=== PATIENT | female | born 1950 | race Caucasian/White ===

== ENCOUNTER 2023-10-09 12:45 | Outpatient (CLI) | payer MEDICARE, SELFPAY ==
--- NOTE | ~2023-10-09 | MM_ITS ---
EXAMINATION: MM screening melba BI w sylvia HISTORY: Screening mammogram, family history of breast cancer in her mother. TECHNIQUE: Craniocaudal and mediolateral oblique 3-D tomosynthesis images were obtained and synthetic 2-D images were generated. CAD analysis was submitted and interpreted. COMPARISON: No prior mammogram is available for comparison at this institution. BREAST PARENCHYMAL COMPOSITION: There are scattered areas of fibroglandular density. FINDINGS: No suspicious mass, calcification, or architectural distortion are identified in either willian ast to suggest malignancy. There has been no suspicious interval change. IMPRESSION: 1. No mammographic evidence of malignancy. 2. Recommend routine screening mammography in one year. BI-RADS Category 1: Negative Reviewed, dictated and finalized at location A. [employer] ARCHITECT
--- NOTE | ~2023-10-09 | DEXA_ITS ---
Bone Density Report Name: ELSY KRAMER Age: 73 Sex: Female Ethnicity: White Date of : 1950 Indication: postmenopausal; screening for osteoporosis; height loss; anorexia or bulimia; Referring Provider: Salena Silveira Study: Bone densitometry was performed. Exam Date: October 09, 2023 Accession number: [id number] Bone Density: Region BMD T-score Z-score Classification AP Spine(L1-L4) 1.020 -0.2 1.9 Normal Femoral Neck (Left) 0.654 -1.8 0.1 Osteopenia Total Hip (Left) 0.936 0.0 1.5 Normal Femoral Neck (Right) 0.701 -1.3 0.5 Osteopenia Total Hip (Right) 0.991 0.4 2.0 Normal Femoral Neck Mean 0.678 -1.5 0.3 Osteopenia Total Hip Mean 0.963 0.2 1.8 Normal World Health Organization criteria for BMD impression classify patients as: Normal (T-score at or above -1.0), Osteopenia (T-score between -1.0 and -2.5), or Osteoporosis (T-score at or below -2.5). 10-year Fracture Risk(1): Major Osteoporotic Fracture 11% Hip Fracture 1.9% Reported Risk Factors: [place] (), Neck BMD=0.654, BMI=27.5 (1) FRAX(R) Version 3.08. Fracture probability calculated for an untreated patient. Fracture probability may be lower if the patient has received treatment. Clinical Information Provided by Patient: Has used the following medications: Vitamin D, Calcium Has the following medical conditions: Anorexia or Bulimia Patient maximum height was 65 Menopause Age: 51 No regular weight bearing exercise Drinks caffeinated beverages Onset of menses at age 14 Number of children 0 Impression: The patient has low bone mass, based on the Left Femoral Neck T-score. Discussion: BONE DENSITY IS LOW AT ONE OR MORE SKELETAL SITES. This patient's lowest T-score is low at one or more skeletal sites. It meets the World Health Organization's (WHO) criteria for ?low bone mass? (T-score between -1.0 and -2.5). The patient's 10-year risk of fracture as calculated by FRAX is less than the threshold where pharmacological therapy is recommended by the National Osteoporosis Foundation (NOF). However, all treatment decisions require clinical judgment and consideration of individual patient factors, including patient preferences, comorbidities, previous drug use, risk factors not captured in the FRAX model (e.g., frailty, falls, vitamin D deficiency, increased bone turnover, interval significant decline in bone density) and possible under or overestimation of fracture risk by FRAX. The patient should follow a healthful lifestyle (good nutrition with adequate calcium and vitamin D, and appropriate weight-bearing exercise). Follow-Up: Consider repeating this study in 2 to 3 years to reassess this patient's status, or sooner if there is some new clinical indication. Reported by:
== END 2023-10-09 12:46 | disposition home or self-care (01) ==
LOC: CHSIMG 12:48
PROVIDERS: PCP Family Medicine; Visit Provider Family Medicine
DX: Z12.31 Encounter for screening mammogram for malignant neoplasm of breast (principal); Z78.0 Asymptomatic menopausal state; M85.89 Other specified disorders of bone density and structure, multiple sites
CPT/HCPCS: 77063; 77067; 77080

== ENCOUNTER → 2023-10-17 10:30 | Outpatient (CLI) | payer MEDICARE, SELFPAY ==
--- NOTE | ~2023-10-17 | US_ITS ---
Limited Abdominal Sonogram: Real-time sonographic imaging of the right upper quadrant was performed. Clinical History: Elevated liver enzymes Findings: The liver appears echogenic, with no evidence of mass lesion or bile duct dilatation. Main portal vein demonstrates normal direction of flow. The gallbladder is well distended, and contains l ayering sludge. There is minimal gallbladder wall thickening of 4 mm. The common bile duct measures 4 mm. The visualized pancreas, aorta, and IVC are unremarkable. Small amount of abdominal ascites pre sent. Right kidney measures 9.8 cm in length, without hydronephrosis. Impression: Gallbladder sludge with mild gallbladder wall thickening. Correlate currently for acute cholecystitis . Consider HIDA scan as indicated. Diffuse fatty infiltration of the liver. Reviewed, dictated and finalized at location . [employer] Impression: Gallbladder sludge with mild gallbladder wall thickening. Correlate currently f or acute cholecystitis. Consider HIDA scan as indicated. Diffuse fatty infiltration of the liver.
== END ==
PROVIDERS: PCP Family Medicine; Visit Provider Family Medicine
DX: R74.8 Abnormal levels of other serum enzymes (principal); K76.0 Fatty (change of) liver, not elsewhere classified
CPT/HCPCS: 76705

== ENCOUNTER 2023-10-20 02:05 | Day surgery (SDC) | payer MEDICARE, SELFPAY ==
[2023-10-06 10:35] VITALS: BMI 26.7
--- NOTE | 2023-10-17 09:48 | SUR.PREOP ---
Patient called regarding upcoming procedure. Message left on pt's voicemail regarding appointment times.
[2023-10-20 12:46] VITALS: BP 137/74; PULSE 101; RESP 18; TEMP 36.4; O2SAT 99; BMI 26.9
[2023-10-20] MEDS: LACTATED RINGERS 1,000 ML 150 ML IV CONT (13:12)
--- NOTE | 2023-10-20 13:21 | P.PNAN_ITS ---
Anes - Initial Pre Proc Eval Procedure: Operation Date: 10/20/23 14:00 Proposed Procedures p Esophagogastroduodenoscopy & Screening Colonoscopy - Jordi Leon MD Date/Time: 10/20/23 13:21 Surgeon: Jordi Willis MD Pre Op Diagnosis: anorexia,abnormal weight loss,neoplasm screening Patient Data Age: 73 Gender: F Height: 1.65 m Weight: 73.4 kg Last Vital Signs Temp 36.4 C L 10/20/23 12:46 Pulse 101 H 10/20/23 12:46 Resp 18 10/20/23 12:46 BP 137/74 10/20/23 12:46 Pulse Ox 99 10/20/23 12:46 O2 Del Method Room Air 10/20/23 12:46 Allergies Allergy/AdvReac Type Severity Reaction Status Date / Time No Known Allergies Allergy Verified 10/20/23 12:54 Home Medications Medication Instructions Recorded Confirmed Type potassium chloride 10 mEq 10 meq PO DAILY #30 tabs 09/28/23 10/20/23 Rx tablet,extended release Patient hx anesthesia problems: post op nausea/vomiting Family hx anesthesia problems: none Results Review: All pre-operative results and documents have been reviewed as part of the pre- operative evaluation. [facility] Past Medical History Medical History Alcohol abuse FHx: breast cancer in first degree relative Poor appetite Weight loss Surgical History Surgical History Hx of cataract surgery Family History Family History Father Malignant neoplasm of prostate Mother Family history of malignant neoplasm of breast in first degree relative Social History Social History Social History: Single Smoking status: Never smoker Second hand tobacco smoke exposure: No Alcohol intake: former Drinks per week: 4 Substance use: never Substance use type: does not use Lack of Transportation: No Lack of Food: Never True Current Housing: I Have Housing Concerned About Future Housing: No Difficulty Paying Gas/Electric Bills: No Difficulty Paying for Meds: No Currently Unemployed: YES Education: Don't Know Difficulty w/ Childcare or Family Care: No Living arrangements: alone Occupation/Education: retired Gender identity (if verbalized by the patient): Female Sexual Orientation (if Verbalized by the Patient): Straight or Heterosexual Anes - Eval Final PreProcedure Day of Procedure 10/20/23 13:21 Patient weight: normal Heart: regular rate and rhythm Lungs: clear to auscultation Airway: Mallampati scale class II Neurological: alert and oriented Last oral intake: >/= 8 hours ASA classification: III Emergent: no Anesthetic plan: proceed Anesthesia type and monitoring: general GIVS and standard monitoring Results Review: All pre-operative results and documents have been reviewed as part of the pre- operative evaluation. Informed Consent: The patient's anesthetic plan and its attendant risks and benefits were discussed with the patient/family/POA. Questions were solicited and answers provided to the satisfaction of the patient/family/POA.
--- NOTE | 2023-10-20 13:38 | PM.HPGS ---
History of Present Illness History of Present Illness Consent: Risks, benefits, and alternatives have been discussed and questions answered. Patient agrees to proceed with procedure. Chief complaint: anorexia,abnormal weight loss,neoplasm screening Narrative: Ligia Preciado is a 73 year old female here for egd and colonoscopy, recently decreased appetite and belching (she was drinking alcohol but stopped). Review of Systems Constitutional: Constitutional: Denies headache(s) and Denies weakness Eyes: Eyes: Denies blurry vision ENT: Reports Normal hearing present, Denies headache(s) and Denies neck pain Cardiovascular: Cardiovascular: Denies chest pain and Denies dyspnea Respiratory: Respiratory: Denies dyspnea Gastrointestinal: Gastrointestinal: Reports no additional gastrointestinal complaints Genitourinary: Genitourinary: Denies dysuria Musculoskeletal: Musculoskeletal: Denies neck pain Integumentary/Breasts: Skin/Breast: Denies dry skin Neurologic: Reports Normal hearing present, Denies headache(s) and Denies weakness Psychiatric: Psychiatric: Denies anxiety Endocrine: Endocrine: Denies change in body appearance Hematologic/Lymphatic: Hematologic/Lymphatic: Denies easy bleeding Allergic/Immunologic: Allergic/Immunologic: Denies urticaria PMFSH Past Medical History Medical History Alcohol abuse FHx: breast cancer in first degree relative Poor appetite Weight loss Surgical History Surgical History Hx of cataract surgery Family History Family History Father Malignant neoplasm of prostate Mother Family history of malignant neoplasm of breast in first degree relative Social History Social History Social History: Single Smoking status: Never smoker Second hand tobacco smoke exposure: No Alcohol intake: former Drinks per week: 4 Substance use: never Substance use type: does not use Lack of Transportation: No Lack of Food: Never True Current Housing: I Have Housing Concerned About Future Housing: No Difficulty Paying Gas/Electric Bills: No Difficulty Paying for Meds: No Currently Unemployed: YES Education: Don't Know Difficulty w/ Childcare or Family Care: No Living arrangements: alone Occupation/Education: retired Gender identity (if verbalized by the patient): Female Sexual Orientation (if Verbalized by the Patient): Straight or Heterosexual Meds Home Medications and Allergies Home Medications Medication Instructions Recorded Confirmed Type potassium chloride 10 mEq 10 meq PO DAILY #30 tabs 09/28/23 10/20/23 Rx tablet,extended release Allergies Allergy/AdvReac Type Severity Reaction Status Date / Time No Known Allergies Allergy Verified 10/20/23 12:54 Vital Signs Vital Signs - 24 hr 10/20/23 12:46 Temperature 97.5 F L Pulse Rate 101 H Respiratory Rate 18 Blood Pressure 137/74 Pulse Oximetry 99 Oxygen Delivery Room Air Exam Const: General: comfortable and no acute distress HENMT: Face/Nose/Sinus: Normal nares present Eyes: General: appearance normal, both eyes and all related structures Neck: Neck: no JVD Resp: Auscultation: clear to auscultation bilaterally Cardio: Rate: regular rate Rhythm: regular rhythm GI: Inspection: non-distended GI Palp: Yes Soft to palpation Skin: General skin exam: normal color Neuro: General: gait normal Speech: normal speech Extrem: General: normal to inspection Psych: Mental Status: mental status grossly normal Assessment and Plan Assessment and plan (1) Colon cancer screening: Code(s): Z12.11 - Encounter for screening for malignant neoplasm of colon Status: Acute Assessment and Plan: colonoscopy (2) Weight l
--- NOTE | 2023-10-20 14:04 | SUR.OPER ---
EGD ended at 1353. Colonoscopy began at 1358.
[2023-10-20 14:15] VITALS: BP 106/68; PULSE 100; RESP 23; O2SAT 99
[2023-10-20 14:25] VITALS: BP 120/74; PULSE 80; RESP 17; O2SAT 99
[2023-10-20 14:35] VITALS: BP 136/70; PULSE 72; RESP 26; O2SAT 98
== END 2023-10-20 14:54 | disposition home or self-care (01) ==
PROVIDERS: PCP Family Medicine; Visit Provider Internal Medicine Gastroenterology
PROC: 0DJ08ZZ Inspection of Upper Intestinal Tract, Via Natural or Artificial Opening Endoscopic (ICD-10-PCS; CPT 43235; principal; 2023-10-20 14:00)
DX: Z12.11 Encounter for screening for malignant neoplasm of colon (principal); D12.0 Benign neoplasm of cecum; D12.2 Benign neoplasm of ascending colon; D12.5 Benign neoplasm of sigmoid colon; K63.5 Polyp of colon; K57.30 Diverticulosis of large intestine without perforation or abscess without bleeding; K64.8 Other hemorrhoids; K29.80 Duodenitis without bleeding; K29.70 Gastritis, unspecified, without bleeding; K44.9 Diaphragmatic hernia without obstruction or gangrene
CPT/HCPCS: 45380; 45385; 43239; 88305; J2704; J7120

== ENCOUNTER 2025-03-14 11:05 | Outpatient (CLI) | payer MEDICARE, SELFPAY ==
--- OUTSIDE RECORDS SUMMARY | 2025-03-14 11:26 | XMS_ITS | Clinical Summary ---
Author Organization [facility] Address [address] [place] [address] Care Team Providers Care Numerologist Name Role Phone Unavailable Primary Care Provider Unavailabl e Source Comments [facility],non-owned Affiliates and Associated Physician Practices is amultiple site organization consisting of ambulatory clinics and hospital sitesin [place], [place]. This disclosure is being madepursuant to the Care Everywhere program and may not contain all information available regarding this patient. Last updated 18.[employer] [facility] Allergies No known active allergies Medications * Be aware that medications may not be up to date on this document. Alwaysverify current medications with the patient. folic acid (Folvite) 1 MG tablet Take 1 (one) tablet by mouth once daily 02/12/2025 Active lactulose (Chronulac) 10 GM/15ML solution Take 30 mL by mouth 2 times daily 02/11/2025 Active calcium-vitamin D (Os-Sriram 500 + D) 500-200 mg-unit tablet Take 1 (one) tablet by mouth 2 times daily with morning and evening meal 02/11/2025 Active midodrine (Proamatine) 5 MG tablet Take 3 (three) tablets by mouth 3 times daily before meals 02/11/2025 Active thiamine (Vitamin B-1) 100 MG tablet Take 1 (one) tablet by mouth once daily 02/12/2025 Active Active Problems Problem Noted Date Diagnosed Date Encounter for pre-transplant evaluation for liver transplant 02/08/2025 Overview (02/25/2025): Images from the original note were not included. Elsy Kramer 1950 A[facility]/ [facility] Last drink: September 2024 RP: 0/8 [facility] Team Referral- Dr. Marks Body mass index is 24.03 kg/m . MELD 3.0: 28 at 02/11/2025 6:44 AM MELD-Na: 28 at 02/11/2025 6:44 AM Calculated from: Serum Creatinine: 5.71 mg/dL (Using max of 3 mg/dL) at 02/11/2025 6:44 AM Serum Sodium: 134 mmol/L at 02/11/2025 6:44 AM Total Bilirubin: 2.1 mg/dL at 02/11/2025 6:44 AM Serum Albumin: 2.9 g/dL at 02/11/2025 6:44 AM INR(ratio): 1.5 at 02/11/2025 6:44 AM Age at listing (hypothetical): 74 years Sex: Female at 02/11/2025 6:44 AM LABS 02/08/25 16:31 02/09/25 10:50 ABO Rh O POS O POS 01/31/25 10:04 Ferritin 576 (H) Iron 69 TIBC Calculated 64 (L) Transferrin 51 (L) Transferrin Saturation % 100 (H) 02/09/25 05:41 Total Cholesterol (NMR) 75 Triglycerides 50 HDL 10 (L) LDL Calculated 55 02/09/25 05:41 Alpha-Fetoprotein Tumor Marker 3.7 02/09/25 05:41 Uric Acid 9.6 (H) 02/09/25 05:41 Vitamin D, 25 Hydroxy 6.7 (L) 01/31/25 10:03 LEANDRO HEp-2 IgG <1:80 LEANDRO IgG Detected ! LEANDRO Interpretive Comment See Note F-Actin Antibody IgG 4 Mitochondrial M2 Antibody 1.0 Liver/Kidney Microsomal Antibody IgG <1:20 Liver-Kidney Microsomal Antibody 1.1 01/31/25 10:04 Xhcnd-4-Kufqwmcaduy 112 Ceruloplasmin 15 (L) 02/08/25 16:31 02/09/25 05:48 Treponema pallidum Antibody Non-reactive HIV Antigen/Antibody 1 & 2 Non-reactive 01/31/25 10:04 Hepatitis B Core Virus Antibody IgM Non-reactive Hepatitis B Surface Antibody Quantitative 178.4 (H) Hepatitis B Virus Surface Antibody Reactive ! Hepatitis B Virus Surface Antigen Non-reactive Hepatitis C Antibody Non-reactive Latest Reference Range & Units 02/09/25 06:50 QuantiFERON-TB Gold Plus Negative Negative QuantiFERON Plus TB1 Minus NIL <=0.34 IU/mL 0.04 QuantiFERON Plus TB2 Minus NIL <=0.34 IU/mL 0.03 QuantiFERON Mitogen Minus NIL IU/mL 2.97 QuantiFERON Nil Value IU/mL 0.04 02/09/25 05:50 02/09/25 07:22 02/09/25 10:50 02/09/25 10:51 02/09/25 10:53 CMV Quant by PCR, Log NA CMV Quant by PCR, Interp Not detected Measles (Rubeola) Antibody IgG >300.0 Mumps Virus Antibody IgG 138.0 Rubella Antibody IgG 73.0 Varicella zoster Virus Antibody IgG 0.8 EBV 02/09/25 05:50 02/09/25 10:51 Strongyloides Antibody IgG 0.1 Toxoplasma Antibody IgG <3.0 02/08/25 16:13 Amphetamines Screen Urine Negative Barbiturates Screen Urine Negative Benzodiazepine Screen Urine Negative Cannabinoids Screen Urine Negative Cocaine Metabolite Urine Negative Methadone Screen Urine Negative Opiates Urine Negative Fentanyl Screen Urine Negative Phencyclidine Screen Urine Negative 02/02/25 06:17 PEth 16:0/18.1 (POPEth) <10 PEth 16:0/18.2 (PLPEth) <10 CXR 01/30/25 Single frontal view of the chest demonstrates a normal sized heart and pulmonary vasculature. No focal consolidation, pleural effusion or pneumothorax. No acute osseous abnormalities. IMPRESSION: No acute cardiopulmonary abnormalities. US venous LE doppler 01/03/25 done OSH CONCLUSION: Acute non-occlusive deep vein thrombosis involving the left common femoral vein. No evidence of deep vein thrombosis involving the right lower extremity. US VAS LE doppler 02/09/25 No evidence of DVT in the visualized veins of the bilateral lower extremities by this exam. There was no echogenic thrombus noted in the lumen of the vessels. The veins were compressible where this could be performed and flow was phasic with respiration. Venous duplex imaging was performed in bilateral lower extremities with B mode,color flow and spectral Doppler. The following venous structures were evaluated: common femoral vein, proximal portion of the great saphenous vein, femoral vein, proximal profunda femoris vein, popliteal vein, posterior tibial veins and peroneal veins. Pelvic MRI 02/10/25 1.Hepatic cirrhosis with sequela of portal hypertension including moderate to large volume ascites. No arterial hyperenhancing hepatic observations. 2.Cholelithiasis and gallbladder sludge. 3.Moderate sized hiatal hernia. Small left pleural effusion. 4.Unremarkable pelvic viscera. An approximately 2.5 cm focal bone lesion in the right iliac bone not well characterized, likely a nonaggressive lesion like hemangioma. Bone scan may be helpful. Pelvic CT 02/10/25 1.Hepatic cirrhosis with sequela of portal hypertension including moderate to large volume ascites. No arterial hyperenhancing hepatic observations. 2.Cholelithiasis and gallbladder sludge. 3.Moderate sized hiatal hernia. Small left pleural effusion. 4.Unremarkable pelvic viscera. An approximately 2.5 cm focal bone lesion in the right iliac bone not well characterized, likely a nonaggressive lesion like hemangioma. Bone scan may be helpful. MRI 02/10/25 Focal liver observations No arterially enhancing observations concerning for hepatocellular carcinoma. Hepatic vasculature Portal and hepatic veins: Patent. 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 1.Hepatic cirrhosis with sequela of portal hypertension including moderate to large volume ascites. No arterial hyperenhancing hepatic observations. 2.Cholelithiasis and gallbladder sludge. 3.Moderate sized hiatal hernia. Small left pleural effusion. 4.Unremarkable pelvic viscera. An approximately 2.5 cm focal bone lesion in the right iliac bone not well characterized, likely a nonaggressive lesion like hemangioma. Bone scan may be helpful. EKG 02/09/25 Echo w/BS 01/03/25 - done OSH SUMMARY: ++++++++++++++++++++++++++++++++++++ The left ventricular size is normal. The left ventricular systolic function is hyperdynamic with cavity obliteration. Estimated left ventricular ejection fraction is >75%. Left ventricular diastolic function is normal. Wall motion appears normal in all segments. The right ventricular size is normal. Right ventricular systolic function is normal. No significant valvular abnormalities. ++++++++++++++++++++++++++++++++++++ FINDINGS: ++++++++++++++++++++++++++++++++++++ LV: The left ventricular size is normal. The left ventricular systolic function is hyperdynamic with cavity obliteration. Estimated left ventricular ejection fraction is >75%. There is no left ventricular hypertrophy. Left ventricular diastolic function is normal. WM: Wall motion appears normal in all segments. RV: The right ventricular size is normal. Right ventricular systolic function is normal. IVS: No evidence of ventricular septal defect. LA: The left atrial size is normal. RA: Right atrial size is normal. IAS: Atrial septum appears intact. DAVON: No evidence of pericardial effusion. AO: Normal aortic root. PA: Unable to reliably quantitate pulmonary systolic pressure. SVn: Inferior vena cava not well visualized. AV: No evidence of aortic valve stenosis. No evidence of aortic regurgitation. MV: Trace mitral regurgitation. No evidence of mitral valve stenosis. PV: No evidence of pulmonic valve stenosis. A trace of pulmonic regurgitation. TV: Mild tricuspid regurgitation. No evidence of tricuspid valve stenosis. DSE 02/10/25 The stress echocardiogram is negative for dobutamine induced wall motion abnormalities. Stress ECG is negative for ischemia. Stress Echo Findings Left Ventricle Normal left ventricular systolic function with no regional wall motion abnormalities noted at rest. No regional wall motion abnormalities noted post stress. Normal augmentation of all wall segments without evidence of ischemia with stress. Rest Echo Findings Left Ventricle The left ventricle is normal in size, with hyperdynamic systolic function. Target HR Summary: Test terminated after reaching target heart rate (85% max predicted) BP Response: Patient exhibited a hypotensive response with stress Termination Reason: Reached target heart rate or workload Cardiac Symptoms: None Resting ECG Normal sinus rhythm at rest. PACs. Stress ECG Heart rate demonstrated a normal response to stress. A peak heart rate of 127 bpm was achieved. The patient's peak stress blood pressure was 81/42 mmHg. Arrhythmias No arrhythmias were observed during the examination. Mammogram 10/09/23-due for updated mammogram PAP/VOICE COACH EGD Colonoscopy 10/20/2023 due 2025 Path: Panorex 02/09/25 There are multiple dental restorations. The maxillary third molars were removed. No large dental caries or mandibular periapical lucency. Dexa scan PT Frailty Assessment Transplant Education 02/11/25 Jayda Jesus, cone examinerHuman Intelligence [facility] 02/09/25 BMI is 24, normal weight per BMI. Pt is considered to be a fair candidate for a Liver Transplant from a Nutrition standpoint. - pt has skin breakdown, pt has severe malnutrition but she is willing to take Ensure Clear. Hold off on Brandon given elevated creat. Transplant Nephrology Consultation Transplant Surgical Consultation MANISH (acute kidney injury) 02/01/2025 Assessment & Plan (02/03/2025 1:04 PM CDT): - Oliguric (125ml out ON) - Nepho following- > appreciate recs - Unclear baseline (Per OSH records- creatinine was elevated 3.14 on 01/26) - Continues to be elevated-> 5.44 on 02/03 - Renal US with mildly increased parenchymal echogenicity without hydronephrosis - LEANDRO + - Concerns for HRS vs worsening MANISH Assessment & Plan (02/02/2025 12:57 PM CDT): - Nepho following- > appreciate recs - Unclear baseline (Per OSH records- creatinine was elevated 3.14 on 01/26) - Continues to be elevated-> 4.59 today (02/01) - Concerns for HRS Assessment & Plan (02/01/2025 2:12 PM CDT): - Unclear baseline (Per OSH records- creatinine was elevated 3.14 on 01/26) - Continues to be elevated at 3.11 - Concerns for HRS- workup pending (Urine with micro, Urine lytes, creatinine and urea) High anion gap metabolic acidosis 02/01/2025 Assessment & Plan (02/03/2025 1:04 PM CDT): - GAP 18 on 02/03 - Likely 2/2 to chronic liver disease - CTM - Will transition from bicarb tabs to IV infusion and reassess. Assessment & Plan (02/02/2025 12:57 PM CDT): - GAP closed now 14 on 02/01 - Likely 2/2 to chronic liver disease - CTM - Will start Sodium Bicarbonate 650 mg TID Assessment & Plan (02/01/2025 2:12 PM CDT): - Likely 2/2 to chronic liver disease - Bicarb 11, GAP 17 - CTM - Will start Sodium Bicarbonate 650 mg TID PAF (paroxysmal atrial fibrillation) 01/30/2025 Assessment & Plan (02/03/2025 1:04 PM CDT): - In NSR on tele Assessment & Plan (02/02/2025 12:57 PM CDT): - In NSR on tele Assessment & Plan (02/01/2025 3:01 PM CDT): - In NSR on tele - Home med- metop succ 12.5 mg qd Urinary tract infection asso ciated with indwelling urethral catheter 01/30/2025 Assessment & Plan (02/03/2025 1:04 PM CDT): - See bacteremia Assessment & Plan (02/02/2025 12:57 PM CDT): - See bacteremia Assessment & Plan (02/01/2025 2:12 PM CDT): - See bacteremia Bacteremia 01/30/2025 Assessment & Plan (02/03/2025 1:04 PM CDT): - POA, improving - WBC downtrending - 2/2 CAUTI w pyelonephritis - Bcx obtained at OSH on 01/27- + for GNR. Was not able to speciated or provide sensitivity. - LVP on 01/27 finalized with NGTD. - Repeated LVP 02/01- sent for cytology and cx- NGTD - UA repeated yesterday given HRS workup- showing WBC clumps and yeast budding. - Likely source CAUTI from chronic dao 2/2 urinary retention. Replaced on admission w urology (01/30) PLAN: - ID consulted for possible funguria- signed off - Will hold off on empirical tx given she has chronic dao catheter and is improving clinically. - Continue Zosyn given we did not obtain species or sensitivity (EOT 02/03/25) Assessment & Plan (02/02/2025 12:57 PM CDT): - POA, improving - WBC down to 9.2 today (02/01) from 14.9. - 2/2 CAUTI w pyelonephritis - Bcx obtained at OSH on 01/27- + for GNR. Was not able to speciated or provide sensitivity. - LVP on 01/27 finalized with NGTD. - Repeated LVP 02/01- sent for cytology and cx. - UA repeated yesterday given HRS workup- showing WBC clumps and yeast budding. - Likely source CAUTI from chronic dao 2/2 urinary retention. Replaced on admission w urology (01/30) PLAN: - ID consulted for possible funguria. - Will hold off on empirical tx given she has chronic dao catheter and is improving clinically. - Continue Zosyn given we did not obtain species or sensitivity (EOT 02/03/25) Assessment & Plan (02/01/2025 2:12 PM CDT): - POA, improving - 2/2 CAUTI w pyelonephritis - Bcx obtained at OSH on 01/27- + for GNR. Was not able to speciated or provide sensitivity. - LVP on 01/27 finalized with NGTD. - Likely source CAUTI from chronic dao 2/2 urinary retention. Replaced on admission w urology (01/30) PLAN: - Continue Zosyn given we did not obtain species or sensitivity (EOT 02/03/25) Chronic deep vein thrombosis (DVT) of proximal vein of left lower extremity 01/30/2025 Assessment & Plan (02/03/2025 1:04 PM CDT): - s/p IVC filter Assessment & Plan (02/02/2025 12:57 PM CDT): - s/p IVC filter Assessment & Plan (02/01/2025 2:12 PM CDT): - s/p IVC filter Pleural effusion 01/30/2025 Assessment & Plan (02/03/2025 1:04 PM CDT): - CXR 01/26 shows small R effusion - No acute processes on repeat xray 01/30 - On RA Assessment & Plan (02/02/2025 12:57 PM CDT): - CXR 01/26 shows small R effusion - No acute processes on repeat xray 01/30 - On RA Assessment & Plan (02/01/2025 3:01 PM CDT): - CXR 01/26 shows small R effusion - No acute processes on repeat xray 01/30 - On RA Cirrhosis of liver with asci kym, unspecified hepatic cirrhosis type 01/28/2025 Assessment & Plan (02/03/2025 1:04 PM CDT): - 2/2 alcohol use disorder - LVP was completed on 01/27 with 9 L removed. - Repeated LVP 02/01- sent for cytology and cx - Hepatology consulted - MELD 3.0 was 29 at 02/03/2025 5:29 AM MELD-Na was 30 at 02/03/2025 5:29 AM MELD was 29 at 02/03/2025 5:29 AM Plan: Continue Thiamin and Midodrine - Increase Midodrine to 15 TID. - Avoid hypotension- MAP > 65 - Protonix 40 mg qd - Holding lasix and spironolactone in the setting of MANISH - s/p LVP on 02/01 w 9 L removed Assessment & Plan (02/02/2025 12:57 PM CDT): - 2/2 alcohol use disorder - LVP was completed on 01/27 with 9 L removed. - Repeated LVP 02/01- sent for cytology and cx - Hepatology consulted - MELD 3.0 was 30 at 02/02/2025 6:17 AM MELD-Na was 30 at 02/02/2025 6:17 AM MELD was 29 at 02/02/2025 6:17 AM Plan: Continue Thiamin and Midodrine - Increase Midodrine to 15 TID. - Avoid hypotension- MAP > 65 - Protonix 40 mg qd - Holding lasix and spironolactone in the setting of MANISH - s/p LVP on 02/01 w 9 L removed Assessment & Plan (02/01/2025 3:01 PM CDT): - 2/2 alcohol use disorder - Last LVP was completed on 01/27 with 9 L removed. - Hepatology consulted - MELD 3.0 was 30 at 01/31/2025 10:03 AM MELD-Na was 28 at 01/31/2025 10:03 AM MELD was 27 at 01/31/2025 10:03 AM Plan: Continue Thiamin and Midodrine - Avoid hypotension- MAP > 65 - Protonix 40 mg qd - Holding lasix and spironolactone in the setting of MANISH - Repeat LVP today (good pocket in RLQ on POCUS) Urinary tract infection without hematuria, site unspecified 01/26/2025 Assessment & Plan (02/03/2025 1:04 PM CDT): - See bacteremia Assessment & Plan (02/02/2025 12:57 PM CDT): - See bacteremia Assessment & Plan (02/01/2025 2:12 PM CDT): - See bacteremia Resolved Problems Problem Noted Date Diagnosed Date Resolved Date Other secondary hypertension 01/30/2025 02/01/2025 Encounters Date Type Department Care Team Description 01/29/2025 10:31 PM CDT - 02/11/2025 6:21 PM CDT Hospital Encounter [facility] [address] [place] [id number] Rojas Lopez MD Gandhi, Avi, MD Qureshi, Kamran, MD Gastroenterology Discharge Disposition: Long Term Facility 01/26/2025 Telephone [facility] [address] [place] [id number] Joel Cordoba MD Hospitalization from Last 3 Months Social History Tobacco Use Types Packs/Day Years Used Date Smoking Tobacco: Never Assessed Comments Unknown Sex and Gender Information Value Date Recorded Sex Assigned at Not on file Legal Sex Female 7:06 AM [employer] Gender Identity Not on file Sexual Orientation Not on file Last Filed Vital Signs Vital Sign Reading Time Taken Comments Blood Pressure 95/51 02/11/2025 1:03 PM CDT Pulse 80 02/11/2025 8:04 AM CDT Temperature 36.7 C (98 F) 02/11/2025 8:04 AM CDT Respiratory Rate 18 02/11/2025 8:04 AM CDT Oxygen Saturation 98% 02/11/2025 8:04 AM CDT Inhaled Oxygen Concentration - - Weight 67.5 kg (148 lb 12.8 oz) 02/11/2025 4:00 AM CDT Height 165.1 cm (5' 5 ) 01/29/2025 10:3 4 PM CDT Body Mass Index 24.76 01/29/2025 10:34 PM CDT Plan of Treatment Health Maintenance Due Date Last Done Comments BONE DENSITY TESTING 1950 COLOGUARD (AGES 45-75) - COL ON CA SCREENING 1950 COLON MONITORING 1950 COLONOSCOPY - COLON CA SCREENING 1952 CT COLONOGRAPHY - COLON CA SCREENING 1950 Colorectal Cancer Screening 1950 FIT - COLON CA SCREENING 1950 FLEX SIG - COLON CA SCREENING 1950 MAMMOGRAM 1950 DTAP/TDAP/TD VACCINES (1 - Tdap) 1971 PNEUMOCOCCAL VACCINE 50+ (1 of 2 - PCV) 1971 ZOSTER VACCINE (1 of 2) 2002 HEPATITIS B VACCINE (1 of 3 - Risk 3-dose series) 2012 Respiratory Syncytial Virus (RSV) Vaccine Pt: or over 60 yrs (1 - Risk 60-74 years 1-dose series) 2012 COVID-19 VACCINE (1 - 2023-2 5 season) 2024 DEPRESSION SCREENING 11/03/2024 MEDICARE AWV CALENDAR YEAR 2024 INFLUENZA VACCINE (Season Ended) 2025 LIPID TESTING 02/09/2030 02/09/2025, 01/03/2025 HEPATITIS C SCREENING Completed 01/31/2025 , 01/04/2025, 01/04/2025 HIB VACCINE Aged Out No longer eligi ble based on patient's age to complete this topic HPV VACCINE Aged Out No longer eligi ble based on patient's age to complete this topic MENINGOCOCCAL (Group B) VACCINE SHARED DECISION-MAKING Aged Out No longer eligible based on patient's age to complete this topic MENINGOCOCCAL GROUPS A/C/Y/W VACCINE Aged Out No longer eligible b ased on patient's age to complete this topic Procedures Procedure Name Priority Date/Time Associated Diagnosis Comments PTT [facility] AM Draw 02/11/2025 6:44 AM CDT Cirrhosis of liver with ascites, unspecified hepatic cirrhosis type (HCC) PT-INR [facility] AM Draw 02/11/2025 6:44 AM CDT Cirrhosis of liver with ascites, unspecified hepatic cirrhosis type (HCC) COMPREHENSIVE METABOLIC PANEL AM Draw 02/11/2025 6:44 AM CDT High anion gap metabolic acidosis CBC W/O DIFFERENTIAL AM Draw 02/11/2025 6:44 AM CDT Bacteremia MRI PELVIS WWO CONTRAST Routine 02/11/20 25 1:27 PM CDT Encounter for pre-transplant evaluation for liver transplant MRI ABDOMEN WWO CONTRAST Routine 025 1:26 PM CDT Encounter for pre-transplant evaluation for liver transplant ECHO STRESS DOBUTAMINE W CONTRAST Routine 02/10/2025 11:13 AM CDT Encounter for pre-transplant evaluation for liver transplant BLOOD GASES PETEY + COOX PANEL Routine 02/10/2025 8:16 AM CDT PTT [facility] AM Draw 02/10/2025 5:28 AM CDT Cirrhosis of liver with ascites, unspecified hepatic cirrhosis type (HCC) PT-INR [facility] AM Draw 02/10/2025 5:28 AM CDT Cirrhosis of liver with ascites, unspecified hepatic cirrhosis type (HCC) COMPREHENSIVE METABOLIC PANEL AM Draw 02/10/2025 5:28 AM CDT High anion gap metabolic acidosis CBC W/O DIFFERENTIAL AM Draw 02/10/2025 5:28 AM CDT Bacteremia EKG 12-LEAD STAT 02/09/2025 6:16 PM CDT Cirrhosis of liver with ascites, unspecified hepatic cirrhosis type (HCC) MANISH (acute kidney injury) BLOOD TYPE VERIFICATION Routine 02/10/20 25 12:59 PM CDT PROTEIN C ACTIVITY AM Draw 02/09/2025 12 :59 PM CDT ANTITHROMBIN III ANTIGEN AM Draw 025 12:59 PM CDT XR PANOREX Routine 02/09/2025 12:14 PM CDT Encounter for pre-transplant evaluation for liver transplant VAS BILATERAL VENOUS DUPLEX LE Routine 02/09/2025 12:13 PM CDT Chronic deep vein thrombosis (DVT) of proximal vein of left lower extremity (HCC) CARDIOLIPIN ANTIBODY IGG AM Draw 025 10:54 AM CDT MUMPS ANTIBODY IGG AM Draw 02/09/2025 10 :53 AM CDT CBC W/O DIFFERENTIAL AM Draw 02/09/2025 10:53 AM CDT Bacteremia BETA-2 GLYCOPROTEIN 1 ANTIBODY IGG/IGM PANEL AM Draw 02/09/2025 10:51 AM CDT CARDIOLIPIN ANTIBODY IGM AM Draw 025 10:51 AM CDT RUBELLA ANTIBODY IGG TITER AM Draw 02/09 10:51 AM CDT TOXOPLASMA GONDII ANTIBODY IGG AM Draw 02/09/2025 10:51 AM CDT TYPE + SCREEN PANEL Routine 02/09/2025 1 0:50 AM CDT PROTEIN S ANTIGEN AM Draw 02/09/2025 10: 50 AM CDT HOMOCYSTEINE BLOOD QUANTITATIVE Routine 02/09/2025 10:50 AM CDT VARICELLA ZOSTER ANTIBODY IGG AM Draw 02/09/2025 10:50 AM CDT HEMOGLOBIN A1C Routine 02/09/2025 10:50 AM CDT PTT [facility] AM Draw 02/09/2025 10:50 AM CDT Cirrhosis of liver with ascites, unspecified hepatic cirrhosis type (HCC) COMPREHENSIVE METABOLIC PANEL AM Draw 02/09/2025 10:50 AM CDT High anion gap metabolic acidosis RUBEOLA ANTIBODY IGG AM Draw 02/09/2025 7:22 AM CDT QUANTIFERON-TB GOLD PLUS 4-TUBE AM Draw 02/09/2025 6:50 AM CDT STRONGYLOIDES ANTIBODY IGG AM Draw 02/09 5:50 AM CDT CYTOMEGALOVIRUS (CMV) QUANTITATIVE PLASMA AM Draw 02/09/2025 5:50 AM CDT NICOTINE + METABOLITES BLOOD AM Draw 02/09/2025 5:49 AM CDT SYPHILIS ANTIBODY CASCADING REFLEX AM Draw 02/09/2025 5:48 AM CDT FACTOR V LEIDEN MUTATION PANEL AM Draw 02/09/2025 5:41 AM CDT VITAMIN D 25-HYDROXY AM Draw 02/09/2025 5:41 AM CDT LUPUS ANTICOAGULANT PANEL AM Draw 2024 5:41 AM CDT URIC ACID BLOOD Routine 02/09/2025 5:41 AM CDT ALPHA FETOPROTEIN BLOOD TUMOR MARKER AM Draw 02/09/2025 5:41 AM CDT LIPID PROFILE AM Draw 02/09/2025 5:41 AM CDT PT-INR [facility] AM Draw 02/09/2025 5:41 AM CDT Cirrhosis of liver with ascites, unspecified hepatic cirrhosis type (HCC) HLA ANTIBODY SCREEN LUM CLASS 2 SAB Routine 02/08/2025 4:31 PM CDT HLA ANTIBODY SCREEN LUM CLASS 1 SAB Routine 02/08/2025 4:31 PM CDT BLOOD TYPE ABO+ RH PANEL Routine 025 4:31 PM CDT HIV-1 HIV-2 ANTIBODY + HIV P24 AG PANEL STAT 02/08/2025 4:31 PM CDT URINE DRUG SCREEN IMMUNOASSAY Routine 02/08/2025 4:13 PM CDT HLA TYPING DNA LOW RESOLUTION DR,DQ Routine 02/08/2025 7:56 AM CDT HLA TYPING DNA LOW RESOLUTION A,B,C Routine 02/08/2025 7:56 AM CDT PTT [facility] AM Draw 02/08/2025 5:28 AM CDT Cirrhosis of liver with ascites, unspecified hepatic cirrhosis type (HCC) PT-INR [facility] AM Draw 02/08/2025 5:28 AM CDT Cirrhosis of liver with ascites, unspecified hepatic cirrhosis type (HCC) COMPREHENSIVE METABOLIC PANEL AM Draw 02/08/2025 5:28 AM CDT High anion gap metabolic acidosis CBC W/O DIFFERENTIAL AM Draw 02/08/2025 5:28 AM CDT Bacteremia CBC W/O DIFFERENTIAL AM Draw 02/07/2025 8:19 AM CDT Bacteremia PTT [facility] AM Draw 02/07/2025 8:18 AM CDT Cirrhosis of liver with ascites, unspecified hepatic cirrhosis type (HCC) PT-INR [facility] AM Draw 02/07/2025 8:18 AM CDT Cirrhosis of liver with ascites, unspecified hepatic cirrhosis type (HCC) COMPREHENSIVE METABOLIC PANEL AM Draw 02/07/2025 8:18 AM CDT High anion gap metabolic acidosis PTT [facility] AM Draw 02/06/2025 6:12 AM CDT Cirrhosis of liver with ascites, unspecified hepatic cirrhosis type (HCC) PT-[facility] AM Draw 02/06/2025 6:12 AM CDT Cirrhosis of liver with ascites, unspecified hepatic cirrhosis type (HCC) COMPREHENSIVE METABOLIC PANEL AM Draw 02/06/2025 6:11 AM CDT High anion gap metabolic acidosis CBC W/O DIFFERENTIAL AM Draw 02/06/2025 6:11 AM CDT Bacteremia PTT [facility] AM Draw 02/05/2025 5:42 AM CDT Cirrhosis of liver with ascites, unspecified hepatic cirrhosis type (HCC) [facility] AM Draw 02/05/2025 5:42 AM CDT Cirrhosis of liver with ascites, unspecified hepatic cirrhosis type (HCC) COMPREHENSIVE METABOLIC PANEL AM Draw 02/05/2025 5:42 AM CDT High anion gap metabolic acidosis CBC W/O DIFFERENTIAL AM Draw 02/05/2025 5:42 AM CDT Bacteremia PTT [facility] AM Draw 02/04/2025 5:38 AM CDT Cirrhosis of liver with ascites, unspecified hepatic cirrhosis type (HCC) PT-[facility] AM Draw 02/04/2025 5:38 AM CDT Cirrhosis of liver with ascites, unspecified hepatic cirrhosis type (HCC) COMPREHENSIVE METABOLIC PANEL AM Draw 02/04/2025 5:38 AM CDT High anion gap metabolic acidosis CBC W/O DIFFERENTIAL AM Draw 02/04/2025 5:38 AM CDT Bacteremia COMPREHENSIVE METABOLIC PANEL Timed 02/03/2025 9:35 PM CDT PTT [facility] AM Draw 02/03/2025 5:29 AM CDT Cirrhosis of liver with ascites, unspecified hepatic cirrhosis type (HCC) [facility] AM Draw 02/03/2025 5:29 AM CDT Cirrhosis of liver with ascites, unspecified hepatic cirrhosis type (HCC) COMPREHENSIVE METABOLIC PANEL AM Draw 02/03/2025 5:29 AM CDT High anion gap metabolic acidosis CBC W/O DIFFERENTIAL AM Draw 02/03/2025 5:29 AM CDT Bacteremia US RETROPERITONEAL COMPLETE Routine 02/02/2025 9:43 AM CDT MANISH (acute kidney injury) PTT [facility] AM Draw 02/02/2025 6:17 AM CDT Cirrhosis of liver with ascites, unspecified hepatic cirrhosis type (HCC) [facility] AM Draw 02/02/2025 6:17 AM CDT Cirrhosis of liver with ascites, unspecified hepatic cirrhosis type (HCC) COMPREHENSIVE METABOLIC PANEL AM Draw 02/02/2025 6:17 AM CDT High anion gap metabolic acidosis CBC W/O DIFFERENTIAL AM Draw 02/02/2025 6:17 AM CDT Bacteremia PHOSPHATIDYLETHANOL (PETH) AM Draw 02/02 6:17 AM CDT UREA NITROGEN URINE RANDOM Routine 02/01 9:04 PM CDT LDH BODY FLUID Routine 02/01/2025 3:44 PM CDT GLUCOSE BODY FLUID Routine 02/01/2025 3: 44 PM CDT CELL COUNT W DIFFERENTIAL FLUID Routine 02/01/2025 3:44 PM CDT ALBUMIN BODY FLUID Routine 02/01/2025 3: 44 PM CDT CYTOLOGY NON-VOICE COACH PANEL (STL) Routine 02/01/2025 3:43 PM CDT Cirrhosis of liver with ascites, unspecified hepatic cirrhosis type (HCC) CULTURE ANAEROBE Routine 02/01/2025 3:42 PM CDT CULTURE FUNGUS OTHER+FUNGUS SMEAR Routine 02/01/2025 3:42 PM CDT CULTURE AFB+SMEAR Routine 02/01/2025 3:4 2 PM CDT CULTURE FLUID+GRAM STAIN Routine 025 3:42 PM CDT CREATININE URINE RANDOM Routine 02/02/20 25 10:28 AM CDT LYTES (NA K CL) URINE RANDOM PANEL Routine 02/01/2025 10:28 AM CDT URINALYSIS REFLEX TO MICROSCOPIC NO CULTURE Routine 02/01/2025 10:28 AM CDT IGM BLOOD Routine 01/31/2025 10:04 AM CDT IGG BLOOD Routine 01/31/2025 10:04 AM CDT OEOZJ-4-UYLYMIUSHNV BLOOD AM Draw 03/31/ 2025 10:04 AM CDT CERULOPLASMIN AM Draw 01/31/2025 10:04 AM CDT FERRITIN Routine 01/31/2025 10:04 AM CDT IRON + TRANSFERRIN PANEL Routine 025 10:04 AM CDT HEPATITIS C AB SCREEN RFLX NAAT QUANT AM Draw 01/31/2025 10:04 AM CDT HEPATITIS B CORE ANTIBODY IGM AM Draw 01/31/2025 10:04 AM CDT HEPATITIS B SURFACE ANTIGEN W RFLX CONFIRMATION Routine 01/31/2025 10:04 AM CDT HEPATITIS B SURFACE ANTIBODY QUANT Routine 01/31/2025 10:04 AM CDT LEANDRO HEP-2 IGG BY IFA Routine 01/31/2025 10:03 AM CDT LIVER KIDNEY MICROSOME - 1 ANTIBODY IGG Routine 01/31/2025 10:03 AM CDT MICROSOMAL ANTIBODY LIVER/KIDNEY AM Draw 01/31/2025 10:03 AM CDT SMOOTH MUSCLE ANTIBODY W REFLEX TITER AM Draw 01/31/2025 10:03 AM CDT LEANDRO BLOOD SCREEN W/REFLEX TITER AM Draw 01/31/2025 10:03 AM CDT MITOCHONDRIAL ANTIBODY SCREEN AM Draw 01/31/2025 10:03 AM CDT HEPATITIS A ANTIBODY Routine 01/31/2025 10:03 AM CDT PT-[facility] AM Draw 01/31/2025 10:03 AM CDT CBC W/O DIFFERENTIAL AM Draw 01/31/2025 10:03 AM CDT COMPREHENSIVE METABOLIC PANEL AM Draw 01/31/2025 10:03 AM CDT TROPONIN-I HIGH SENSITIVE STAT 2024 11:54 AM CDT TROPONIN-I HIGH SENSITIVE REFLEX 1HOUR Timed 01/30/2025 11:54 AM CDT LACTIC ACID BLOOD Routine 01/30/2025 11: 53 AM CDT XR CHEST 1VW PORTABLE Routine 01/30/2025 8:28 AM CDT Cirrhosis of liver with ascites, unspecified hepatic cirrhosis type PT-[facility] Routine 01/30/2025 12:24 AM CDT PHOSPHORUS BLOOD Routine 01/30/2025 12:2 4 AM CDT MAGNESIUM BLOOD Routine 01/30/2025 12:24 AM CDT COMPREHENSIVE METABOLIC PANEL Routine 01/30/2025 12:24 AM CDT CBC W/O DIFFERENTIAL Routine 01/30/2025 12:24 AM CDT CULTURE BLOOD STAT 01/30/2025 12:24 AM CDT PROCALCITONIN LEVEL STAT 01/30/2025 1 2:10 AM CDT B-TYPE NATRIURETIC PEPTIDE STAT 01/30 12:10 AM CDT TROPONIN-I HIGH SENSITIVE BASELINE + 1HR STAT 01/30/2025 12:10 AM CDT PT-[facility] STAT 01/30/2025 12:10 AM CDT LACTIC ACID BLOOD STAT 01/30/2025 12: 10 AM CDT COMPREHENSIVE METABOLIC PANEL STAT 01/30/2025 12:10 AM CDT CBC W AUTO DIFFERENTIAL STAT 01/31/20 12:10 AM CDT CULTURE BLOOD STAT 01/30/2025 12:10 AM CDT from Last 3 Months Results * (ABNORMAL) PTT [facility] (02/11/2025 6:44 AM CDT) Only the most recent of10 resultswithin the time period is included. APTT 42.2(H) 23.0 - 38.4 Seconds 02/11/2025 8:21 AM CDT [facility] Comment:Suggested therapeuti c range for full dose I.V. unfractionated heparin therapy for venous thromboembolism is 71 to 109 seconds. Blood BLOOD SPECIMEN / Unknown Lab Venipuncture / Unknown 02/11/2025 6:44 AM CDT 02/11/2025 6:53 AM CDT us Zack Ng MD LAB - COAGULATION ORDERABLES Fin al Result [facility] [address] [id number], [facility] [phone] * (ABNORMAL) PT-INR [facility] (02/11/2025 6:44 AM CDT) Only the most recent of13 resultswithin the time period is included. PT 17.6(H) 12.1 - 14.8 Seconds 02/11/2025 8:21 AM CDT [facility] INR 1.5 See Comment 02/11/2025 8:21 AM CDT [facility] Comment:The suggested therap eutic range for standard coumadin (warfarin) therapy is an INR of 2.0-3.0. For high-risk patients (Mechanical Mitral Valve Prosthesis, etc.), the suggested prophylactic therapeutic range is an INR of 2.5-3.5. Blood BLOOD SPECIMEN / Unknown Lab Venipuncture / Unknown 02/11/2025 6:44 AM CDT 02/11/2025 6:53 AM CDT us Zack Ng MD LAB - COAGULATION ORDERABLES Fin al Result [facility] [address] [address], [facility] [phone] * (ABNORMAL) CBC W/O DIFFERENTIAL (02/11/2025 6:44 AM CDT) Only the most recent of12 resultswithin the time period is included. WBC 11.6(H) 4.0 - 10.7 x10E9/L 02/11/2025 7:30 AM [facility] RBC Count 2.17(L) 3.90 - 5.20 x10E12/L 02/11/2025 7:30 AM [facility] Hemoglobin 7.1(L) 11.9 - 15.8 g/dL 02/11/2025 7:30 AM [facility] Hematocrit 19.2(L) 34.8 - 46.1 % 02/11/2025 7:30 AM [facility] MCV 88.5 80.0 - 98.0 fL 02/11/2025 7:30 AM [facility] MCH 32.7 26.7 - 33.6 pg 02/11/2025 7:30 AM [facility] MCHC 37.0(H) 31.7 - 36.3 g/dL 02/11/2025 7:30 AM [facility] RDW-CV 14.9(H) 11.3 - 14.8 % 02/11/2025 7:30 AM [facility] Platelet Count 169 150 - 420 x10E9/L 02/11/2025 7:30 AM [facility] MPV 10.0 7.8 - 11.4 fL 02/11/2025 7:30 AM [facility] Blood BLOOD SPECIMEN / Unknown Lab Venipuncture / Unknown 02/11/2025 6:44 AM CDT 02/11/2025 6:57 AM CDT Zack Ng MD LAB - HEMATOLOGY ORDERABLES Sonia abdi Result [facility] [address] [place] [address], [facility] [phone] * (ABNORMAL) COMPREHENSIVE METABOLIC PANEL (02/11/2025 6:44 AM [facility]) Only the most recent of14 resultswithin the time period is included. BUN 53(H) 7 - 26 mg/dL 02/11/2025 7:28 AM [facility] Creatinine 5.71(H) 0.56 - 0.96 mg/dL 02/11/2025 7:28 AM [facility] Sodium 134(L) 136 - 145 mmol/L 02/11/2025 7:28 AM [facility] Potassium 3.9 3.5 - 4.5 mmol/L 02/11/2025 7:28 AM [facility] Chloride 101 98 - 107 mmol/L 02/11/2025 7:28 AM [facility] CO2 20(L) 22 - 29 mmol/L 02/11/2025 7:28 AM [facility] Glucose 122(H) 70 - 99 mg/dL 02/11/2025 7:28 AM [facility] Calcium 8.4 8.4 - 10.2 mg/dL 02/11/2025 7:28 AM [facility] Protein Total 4.8(L) 6.0 - 8.3 g/dL 02/11/2025 7:28 AM [facility] Albumin 2.9(L) 3.4 - 5.0 g/dL 02/11/2025 7:28 AM [facility] Bilirubin Total 2.1(H) 0.2 - 1.2 mg/dL 02/11/2025 7:28 AM [facility] Alkaline Phosphatase 73 40 - 150 U/L 02/11/2025 7:28 AM [facility] ALT 31 5 - 55 U/L 02/11/2025 7:28 AM [facility] AST 58(H) 5 - 34 U/L 02/11/2025 7:28 AM [facility] Anion Gap 13 6 - 16 02/11/2025 7:28 AM T [facility] BUN/Creatinine Ratio 9 7 - 23 02/11/2025 7:28 AM T [facility] Osmolality Calculated 294 275 - 295 mOsm/kg 02/11/2025 7:28 AM [facility] Albumin/Globulin Ratio 1.5 1.1 - 2.3 02/11/2025 7:28 AM [facility] eGFR by CKD-EPI 7(L) >=90 mL/min/1.7 3 m2 02/11/2025 7:28 AM [facility] Blood BLOOD SPECIMEN / Unknown Lab Venipuncture / Unknown 02/11/2025 6:44 AM CDT 02/11/2025 7:04 AM CDT us Zack Ng MD LAB - CHEMISTRY ORDERABLES Final Result [facility] [address] [place] [id number], [facility] [phone] * MRI Pelvis Wwo Contrast (02/10/2025 1:27 PM CDT) Anatomical Region Laterality Modality Pelvis Magnetic Resonan ce 02/10/2025 2:57 PM CDT Impressions 02/10/2025 5:42 PM CDT Impression: 1.Hepatic cirrhosis with sequela of portal hypertension including moderate to large volume ascites. No arterial hyperenhancing hepatic observations. 2.Cholelithiasis and gallbladder sludge. 3.Moderate sized hiatal hernia. Small left pleural effusion. 4.Unremarkable pelvic viscera. An approximately 2.5 cm focal bone lesion in the right iliac bone not well characterized, likely a nonaggressive lesion like hemangioma. Bone scan may be helpful. Report dictated by Ashleigh Marlow MD (residential mental health worker). I, Rubi Thurston MD have personally reviewed and interpreted this examination/study. > Interpreting Provider: Rubi Thurston MD on 02/10/2025 5:42 PM Narrative 02/10/2025 5:42 PM CDT PROCEDURE: MRI PELVIS WWO CONTRAST, MRI ABDOMEN WWO CONTRAST, DATE/TIME OF EXAM: 02/10/2025 1:27 PM, LOCATION [facility] INDICATION: Z01.818: Encounter for pre-transplant evaluation for liver transplant ADDITIONAL CLINICAL INFORMATION: Ordering Provider Reason For Exam: Liver transplant evaluation Technologist Note: Additional: COMPARISON: None. TECHNIQUE: MRI of the abdomen and pelvis was performed prior to and following the uneventful administration of 12 mL of Multihance intravenous gadolinium contrast according to standard protocol. Findings: Lower Chest: Small left pleural effusion. Moderate sized hiatal hernia is noted. Hepatobiliary system Liver morphology: Surface nodularity of the liver is consistent with hepatic cirrhosis. Heterogeneous enhancement of the hepatic parenchyma in the arterial phase with the periportal hypoattenuation. Steatosis: None. Varices: None. There is small recannulization of the umbilical vein. Spleen: Normal. Ascites: Moderate to large volume. Focal liver observations No arterially enhancing observations concerning for hepatocellular carcinoma. Hepatic vasculature Portal and hepatic veins: Patent. 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 Gallbladder and bile ducts Gallbladder: Layering material within the gallbladder likely represents sludge and stones. Otherwise, normal gallbladder. Bile ducts: Nondilated. Retroperitoneum Pancreas: Normal. Adrenals: Normal. Kidneys: Normal. Lymph nodes: No lymphadenopathy. Gastrointestinal: Other than a hiatal hernia, the imaged bowel and mesentery are normal. Pelvis: Dao is present in the decompressed urinary bladder. Uterus and adnexa: Normal for the age. The rectum is dilated and filled with stool. Large pelvic fluid collection noted. Approximately 2.5 x 1.5 cm focal lesion in right iliac bone seen as hyperintense in T2-weighted image and hypointense in fat-sat T1-weighted sequence. The lesion shows enhancement in the postcontrast T1-weighted sequence. No associated erosion or destruction of the overlying cortex. No soft tissue component. Other findings: Anasarca. Procedure Note Rubi Thurston MD - 02/10/2025 PROCEDURE: MRI PELVIS WWO CONTRAST, MRI ABDOMEN WWO CONTRAST, DATE/TIMEOF EXAM: 02/10/2025 1:27 PM, LOCATION [facility] INDICATION: Z01.818: Encounter for pre-transplant evaluation for liver transplant ADDITIONAL CLINICAL INFORMATION: Ordering Provider Reason For Exam: Liver transplant evaluation Technologist Note: Additional: COMPARISON: None. TECHNIQUE: MRI of the abdomen and pelvis was performed prior to and following the uneventful administration of 12 mL of Multihanceintravenous gadolinium contrast according to standard protocol. Findings: Lower Chest: Small left pleural effusion. Moderate sized hiatal hernia is noted. Hepatobiliary system Liver morphology: Surface nodularity of the liver is consistent with hepatic cirrhosis. Heterogeneous enhancement of the hepatic parenchymain the arterial phase with the periportal hypoattenuation. Steatosis: None. Varices: None. There is small recannulization of the umbilical vein. Spleen: Normal. Ascites: Moderate to large volume. Focal liver observations No arterially enhancing observations concerning for hepatocellular carcinoma. Hepatic vasculature Portal and hepatic veins: Patent. 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 Gallbladder and bile ducts Gallbladder: Layering material within the gallbladder likely represents sludge and stones. Otherwise, normal gallbladder. Bile ducts: Nondilated. Retroperitoneum Pancreas: Normal. Adrenals: Normal. Kidneys: Normal. Lymph nodes: No lymphadenopathy. Gastrointestinal: Other than a hiatal hernia, the imaged bowel and mesentery are normal. Pelvis: Dao is present in the decompressed urinary bladder. Uterus and adnexa: Normal for the age. The rectum is dilated and filled with stool. Large pelvic fluid collection noted. Approximately 2.5 x 1.5 cm focal lesion in right iliac bone seen as hyperintense in T2-weighted image and hypointense in fat-sat T1-weighted sequence. The lesion shows enhancement in the postcontrast T1-weighted sequence. No associated erosion or destruction of the overlying cortex.No soft tissue component. Other findings: Anasarca. Impression: 1.Hepatic cirrhosis with sequela of portal hypertension includingmoderate to large volume ascites. No arterial hyperenhancing hepaticobservations. 2.Cholelithiasis and gallbladder sludge. 3.Moderate sized hiatal hernia. Small left pleural effusion. 4.Unremarkable pelvic viscera. An approximately 2.5 cm focal bone lesionin the right iliac bone not well characterized, likely a nonaggressivelesion like hemangioma. Bone scan may be helpful. Report dictated by Ashleigh Marlow MD (residential mental health worker). Rubi Friend MD have personally reviewed and interpreted this examination/study. > Interpreting Provider: Rubi Thurston MD on 55:42 PM Alexandro Marks MD MR ORDERABLES Final Result * MRI Abdomen Wwo Contrast (02/10/2025 1:26 PM CDT) Anatomical Region Laterality Modality Abdomen Magnetic Resonan ce 02/10/2025 2:57 PM CDT Impressions 02/10/2025 5:42 PM CDT Impression: 1.Hepatic cirrhosis with sequela of portal hypertension including moderate to large volume ascites. No arterial hyperenhancing hepatic observations. 2.Cholelithiasis and gallbladder sludge. 3.Moderate sized hiatal hernia. Small left pleural effusion. 4.Unremarkable pelvic viscera. An approximately 2.5 cm focal bone lesion in the right iliac bone not well characterized, likely a nonaggressive lesion like hemangioma. Bone scan may be helpful. Report dictated by Ashleigh Marlow MD (residential mental health worker). I, Rubi Thurston MD have personally reviewed and interpreted this examination/study. > Interpreting Provider: Rubi Thurston MD on 02/10/2025 5:42 PM Narrative 02/10/2025 5:42 PM CDT PROCEDURE: MRI PELVIS WWO CONTRAST, MRI ABDOMEN WWO CONTRAST, DATE/TIME OF EXAM: 02/10/2025 1:27 PM, LOCATION [facility] INDICATION: Z01.818: Encounter for pre-transplant evaluation for liver transplant ADDITIONAL CLINICAL INFORMATION: Ordering Provider Reason For Exam: Liver transplant evaluation Technologist Note: Additional: COMPARISON: None. TECHNIQUE: MRI of the abdomen and pelvis was performed prior to and following the uneventful administration of 12 mL of Multihance intravenous gadolinium contrast according to standard protocol. Findings: Lower Chest: Small left pleural effusion. Moderate sized hiatal hernia is noted. Hepatobiliary system Liver morphology: Surface nodularity of the liver is consistent with hepatic cirrhosis. Heterogeneous enhancement of the hepatic parenchyma in the arterial phase with the periportal hypoattenuation. Steatosis: None. Varices: None. There is small recannulization of the umbilical vein. Spleen: Normal. Ascites: Moderate to large volume. Focal liver observations No arterially enhancing observations concerning for hepatocellular carcinoma. Hepatic vasculature Portal and hepatic veins: Patent. 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 Gallbladder and bile ducts Gallbladder: Layering material within the gallbladder likely represents sludge and stones. Otherwise, normal gallbladder. Bile ducts: Nondilated. Retroperitoneum Pancreas: Normal. Adrenals: Normal. Kidneys: Normal. Lymph nodes: No lymphadenopathy. Gastrointestinal: Other than a hiatal hernia, the imaged bowel and mesentery are normal. Pelvis: Dao is present in the decompressed urinary bladder. Uterus and adnexa: Normal for the age. The rectum is dilated and filled with stool. Large pelvic fluid collection noted. Approximately 2.5 x 1.5 cm focal lesion in right iliac bone seen as hyperintense in T2-weighted image and hypointense in fat-sat T1-weighted sequence. The lesion shows enhancement in the postcontrast T1-weighted sequence. No associated erosion or destruction of the overlying cortex. No soft tissue component. Other findings: Anasarca. Procedure Note Rubi Thurston MD - 02/10/2025 PROCEDURE: MRI PELVIS WWO CONTRAST, MRI ABDOMEN WWO CONTRAST, DATE/TIMEOF EXAM: 02/10/2025 1:27 PM, LOCATION [facility] INDICATION: Z01.818: Encounter for pre-transplant evaluation for liver transplant ADDITIONAL CLINICAL INFORMATION: Ordering Provider Reason For Exam: Liver transplant evaluation Technologist Note: Additional: COMPARISON: None. TECHNIQUE: MRI of the abdomen and pelvis was performed prior to and following the uneventful administration of 12 mL of Multihanceintravenous gadolinium contrast according to standard protocol. Findings: Lower Chest: Small left pleural effusion. Moderate sized hiatal hernia is noted. Hepatobiliary system Liver morphology: Surface nodularity of the liver is consistent with hepatic cirrhosis. Heterogeneous enhancement of the hepatic parenchymain the arterial phase with the periportal hypoattenuation. Steatosis: None. Varices: None. There is small recannulization of the umbilical vein. Spleen: Normal. Ascites: Moderate to large volume. Focal liver observations No arterially enhancing observations concerning for hepatocellular carcinoma. Hepatic vasculature Portal and hepatic veins: Patent. 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 Gallbladder and bile ducts Gallbladder: Layering material within the gallbladder likely represents sludge and stones. Otherwise, normal gallbladder. Bile ducts: Nondilated. Retroperitoneum Pancreas: Normal. Adrenals: Normal. Kidneys: Normal. Lymph nodes: No lymphadenopathy. Gastrointestinal: Other than a hiatal hernia, the imaged bowel and mesentery are normal. Pelvis: Dao is present in the decompressed urinary bladder. Uterus and adnexa: Normal for the age. The rectum is dilated and filled with stool. Large pelvic fluid collection noted. Approximately 2.5 x 1.5 cm focal lesion in right iliac bone seen as hyperintense in T2-weighted image and hypointense in fat-sat T1-weighted sequence. The lesion shows enhancement in the postcontrast T1-weighted sequence. No associated erosion or destruction of the overlying cortex.No soft tissue component. Other findings: Anasarca. Impression: 1.Hepatic cirrhosis with sequela of portal hypertension includingmoderate to large volume ascites. No arterial hyperenhancing hepaticobservations. 2.Cholelithiasis and gallbladder sludge. 3.Moderate sized hiatal hernia. Small left pleural effusion. 4.Unremarkable pelvic viscera. An approximately 2.5 cm focal bone lesionin the right iliac bone not well characterized, likely a nonaggressivelesion like hemangioma. Bone scan may be helpful. Report dictated by Ashleigh Marlow MD (residential mental health worker). I, Rubi Thurston MD have personally reviewed and interpreted this examination/study. > Interpreting Provider: Rubi Thurston MD on 55:42 PM Alexandro Marks MD MR ORDERABLES Final Result * ECHO STRESS DOBUTAMINE W CONTRAST (02/10/2025 11:13 AM CDT) Myocardial strain charge 2 unitless SSM CV FUJI PACS LV A4C EF 86.999 % SSM CV FUJ I PACS LV EDV A4C 80.242 ml SSM CV FU JI PACS LV ESV A4C 10.432 ml SSM CV FU JI PACS Anatomical Region Laterality Modality Ultrasound 02/10/2025 10:3 8 AM CDT Narrative 02/10/2025 1:45 PM CDT Patient Info Name: Elsy Kramer Age: 74 years : 1950 Gender: Female Ht: 65 in Wt: 144 lb BSA: 1.74 m2 HR: 80 bpm BP: 94 / 44 mmHg Heart Rhythm: Sinus Rhythm Exam Date: 02/10/2025 10:38 AM Patient Status: I/P Study Site: [facility] Primary Location: [facility] Info Technical Quality: Adequate Exam Type: ECHO STRESS DOBUTAMINE W CONTRAST Indications Z01.818 - Encounter for pre-transplant evaluation for liver transplant Procedure(s) * Dobutamine stress echocardiogram is performed with 2D along with an Ultrasound Enhancing Agent (UEA). Contrast/Agitated Saline Contrast / Saline: Definity Amount: 2.00 ml Administered By: Yocasta Velarde Reaction to Contrast: no Reason for Technically Difficult Study: patient supine, body habitus Staff Referring Physician: Alexandro Marks Ordering Provider: Alexandro Marks Attending Physician: Alexandro Marks Clinical Trial Leader: Mindy Brizuela Nurse: Yocasta Velarde Summary * The stress echocardiogram is negative for dobutamine induced wall motion abnormalities. * Stress ECG is negative for ischemia. Stress Echo Findings Left Ventricle Normal left ventricular systolic function with no regional wall motion abnormalities noted at rest. No regional wall motion abnormalities noted post stress. Normal augmentation of all wall segments without evidence of ischemia with stress. Rest Echo Findings Left Ventricle The left ventricle is normal in size, with hyperdynamic systolic function. Ventricles Name Value Normal LV Fractional Shortening/Ejection Fraction 2D/MM LV Diastolic Volume (4C MOD) 80 ml LV EF (4C MOD) 87 % LV Diastolic Length (4C) 8.0 cm LV Systolic Length (4C) 6.2 cm LV Stroke Volume (4C MOD) 70 ml Protocol: Dobutamine Stress ECG Details Stage: Rest Duration (min): 15 min : 13 sec HR (bpm): 80 SBP (mmHg): 96 DBP (mmHg): 44 Symptoms: None Stage: 1 Duration (min): 4 min : 31 sec Dose: 10 Medication(s): Dobutamine HR (bpm): 100 SBP (mmHg): 80 DBP (mmHg): 40 Symptoms: None Stage: 2 Duration (min): 3 min : 39 sec Dose: 20 Medication(s): Dobutamine HR (bpm): 127 SBP (mmHg): 84 DBP (mmHg): 42 Symptoms: None Stage: Recovery Duration (min): 11 min : 53 sec HR (bpm): 90 SBP (mmHg): 94 DBP (mmHg): 57 Symptoms: None Target HR Summary: Test terminated after reaching target heart rate (85% max predicted) BP Response: Patient exhibited a hypotensive response with stress Cardiac Symptoms: None Resting ECG Normal sinus rhythm at rest. PACs. Stress ECG Heart rate demonstrated a normal response to stress. A peak heart rate of 127 bpm was achieved. The patient's peak stress blood pressure was 81/42 mmHg. Arrhythmias No arrhythmias were observed during the examination. Termination Reason: Reached target heart rate or workload Total Time: 8 min : 10 sec Heart Rate Response : Resting HR (bpm): 80 : Peak HR (bpm): 127 : Max Predicted HR (bpm): 148 : % of Max Predicted HR: 86 % : Target HR (bpm): 126 Blood Pressure Response : Rest Sys. BP (mmHg): 96 : Rest Diast. BP (mmHg): 44 : Peak Sys. BP (mmHg): 81 : Peak Ge. BP (mmHg): 42 : Max Rate Pressure Product (bpm*mmHg): 10,287 Medication Peak Dobutamine Dose Dose: 20.0 mcg/kg/min Report Signatures Echo Finalized by Margarette Moran on 02/10/2025 01:45 PM Stress ECG Finalized by Margarette Moran on 02/10/2025 01:45 PM Stress Findings The target heart rate was 126 bpm. Procedure Note Margarette Moran, DO - 02/10/2025 Patient Info Name: Elsy Kramer Age: 74 years : 1950 Gender: Female Ht: 65 in Wt: 144 lb BSA: 1.74 m2 HR: 80 bpm BP: 94 / 44 mmHg Heart Rhythm: Sinus Rhythm Exam Date: 02/10/2025 10:38 AM Patient Status: I/P Study Site: [facility] Primary Location: [facility] Info Technical Quality: Adequate Exam Type: ECHO STRESS DOBUTAMINE W CONTRAST Indications Z01.818 - Encounter for pre-transplant evaluation for livertransplant Procedure(s) * Dobutamine stress echocardiogram is performed with 2D along with an Ultrasound Enhancing Agent (UEA). Contrast/Agitated Saline Contrast / Saline: Definity Amount: 2.00 ml Administered By: Yocasta Velarde Reaction to Contrast: no Reason for Technically Difficult Study: patient supine, bodyhabitus Staff Referring Physician: Alexandro Marks Ordering Provider: Alexandro Marks Attending Physician: Alexandro Marks Clinical Trial Leader: Mindy Brizuela Nurse: Yocasta Velarde Summary * The stress echocardiogram is negative for dobutamine induced wallmotion abnormalities. * Stress ECG is negative for ischemia. Stress Echo Findings Left Ventricle Normal left ventricular systolic function with no regional wall motion abnormalities noted at rest. No regional wall motion abnormalities notedpost stress. Normal augmentation of all wall segments without evidence ofischemia with stress. Rest Echo Findings Left Ventricle The left ventricle is normal in size, with hyperdynamic systolicfunction. Ventricles Name Value Normal LV Fractional Shortening/Ejection Fraction 2D/MM LV Diastolic Volume (4C MOD) 80 ml LV EF (4C MOD) 87 % LV Diastolic Length (4C) 8.0 cm LV Systolic Length (4C) 6.2 cm LV Stroke Volume (4C MOD) 70 ml Protocol: Dobutamine Stress ECG Details Stage: Rest Duration (min): 15 min : 13 sec HR (bpm): 80 SBP (mmHg): 96 DBP (mmHg): 44 Symptoms: None Stage: 1 Duration (min): 4 min : 31 sec Dose: 10 Medication(s): Dobutamine HR (bpm): 100 SBP (mmHg): 80 DBP (mmHg): 40 Symptoms: None Stage: 2 Duration (min): 3 min : 39 sec Dose: 20 Medication(s): Dobutamine HR (bpm): 127 SBP (mmHg): 84 DBP (mmHg): 42 Symptoms: None Stage: Recovery Duration (min): 11 min : 53 sec HR (bpm): 90 SBP (mmHg): 94 DBP (mmHg): 57 Symptoms: None Target HR Summary: Test terminated after reaching target heart rate(85% max predicted) BP Response: Patient exhibited a hypotensive response with stress Cardiac Symptoms: None Resting ECG Normal sinus rhythm at rest. PACs. Stress ECG Heart rate demonstrated a normal response to stress. A peak heart rateof 127 bpm was achieved. The patient's peak stress blood pressure was 81/42mmHg. Arrhythmias No arrhythmias were observed during the examination. Termination Reason: Reached target heart rate or workload Total Time: 8 min : 10 sec Heart Rate Response : Resting HR (bpm): 80 : Peak HR (bpm): 127 : Max Predicted HR (bpm): 148 : % of Max Predicted HR: 86 % : Target HR (bpm): 126 Blood Pressure Response : Rest Sys. BP (mmHg): 96 : Rest Diast. BP (mmHg): 44 : Peak Sys. BP (mmHg): 81 : Peak Ge. BP (mmHg): 42 : Max Rate Pressure Product (bpm*mmHg): 10,287 Medication Peak Dobutamine Dose Dose: 20.0 mcg/kg/min Report Signatures Echo Finalized by Margarette Moran on 02/10/2025 01:45 PM Stress ECG Finalized by Margarette Moran on 02/10/2025 01:45 PM us Alexandro Marks MD ECHO CUPID Final Result * (ABNORMAL) BLOOD GASES PETEY + COOX PANEL (02/10/2025 8:16 AM CDT) pH Venous 7.45(H) 7.32 - 7.42 pH 02/10/2025 8:30 AM [facility] pO2 Venous 165(H) 35 - 40 mmHg 02/10/2025 8:30 AM [facility] pCO2 Venous 30(L) 40 - 50 mmHg 02/10/2025 8:30 AM [facility] HCO3 Venous 20.9 20 - 30 mmol/L 02/10/2025 8:30 AM [facility] Base Excess Venous -2.6(L) -2.0 - 2.0 mmol/L 02/10/2025 8:30 AM [facility] Oxyhemoglobin Venous 96.0 % 02/01 8:30 AM [facility] Deoxyhemoglobin (HHB) Venous % 1.0 % 02/10/2025 8:30 AM [facility] Methemoglobin 1.7 0.0 - 2.0 % 02/10/2025 8:30 AM [facility] Carboxyhemoglobin 1.3 0.0 - 2.0 % 2024 8:30 AM [facility] O2 Content Venous 11.9 Interpret within clinical context ml/dL 02/10/2025 8:30 AM [facility] Hemoglobin by COOX 8.5(L) 12.0 - 15.6 g/dL 02/10/2025 8:30 AM [facility] O2 Saturation Venous 99 >=70 % 02/01 8:30 AM [facility] FI O2 Mixed Venous 21.0 % 2024 8:30 AM [facility] Blood BLOOD SPECIMEN / Unknown Venipuncture / Unknown 02/10/2025 8:16 AM [facility] 02/10/2025 8:20 AM [facility] - 02/10/2025 8:30 AM [facility] Carboxyhemoglobin Normal Concentration: Non-smokers: 0-2%; Smokers: 0-9%; Toxic: >20% us Alexandro Marks MD LAB - BLOOD GASES ORDERABLES F inal Result Performing Organization Address City/[facility]/ZIP Co de Phone Number [facility] [address] [place] [address], [facility] [phone] * EKG 12-LEAD (02/09/2025 6:16 PM CDT) [facility] Ventricular Rate 74 BPM [facility] Atrial Rate 74 BPM [facility] P-R Interval 132 ms [facility] QRS Duration ms 88 ms [facility] Q-T Interval ms 388 ms [facility] QTC Calculation (Bezet) 430 ms [facility] Calculated P Corning 48 degrees [facility] Calculated R Corning 49 degrees [facility] Calculated T Corning 20 degrees [facility] Interpretation EKG NORMAL SINUS RHYTHM NONSPECIFIC T WAVE ABNORMALITY ABNORMAL ECG NO PREVIOUS ECGS AVAILABLE Confirmed by AVA WADE MD ([id number]) on 02/15/2025 10:39:04 AM [facility] 02/09/2025 6:16 PM CDT 02/15/2025 10:39 AM CDT Alexandro Marks MD ECG ORDERABLES Edited Result - Final Performing Organization Address [facility] Co de Phone Number [facility] * BLOOD TYPE VERIFICATION (02/09/2025 12:59 PM CDT) [facility] ABO Rh O POS 02/09/2025 2:2 6 PM CDT [facility] Blood Bank BLOOD SPECIMEN / Unknown Lab Venipuncture / Unknown 02/09/2025 12:59 PM CDT 02/09/2025 1:39 PM CDT Alexandro Marks MD LAB - BLOOD BANK ORDERABLES Fi nal Result Performing Organization Address [facility] Co de Phone Number [facility] [address] [place] [address], [facility] [phone] * (ABNORMAL) PROTEIN C ACTIVITY (02/09/2025 12:59 PM CDT) [facility] Protein C Activity 23(L) 83 - 168 % 02/11/2025 6:10 PM CDT [facility] ([facility]) Comment: Protein C may be decreased due to vitamin K deficiency/warfarin therapy, liver disease, acute thrombosis, DIC, asparaginase therapy, or other causes. Elevated factor VIII levels may lead to artifactual decreases in protein C. In the absence of acquired conditions, the low value may represent a risk factor for thrombosis. If clinically indicated, consider repeat testing on a new specimen for confirmation after acquired conditions have been excluded. Patients should be off warfarin therapy for two weeks for accurate measurement of protein C levels. A diagnosis of inherited protein C deficiency should be established only after other acquired causes of protein C deficiency have been excluded. (J Thromb Haemost. 2020; 18(2):271-277). INTERPRETIVE INFORMATION: Protein C, Functional Access complete set of age- and/or gender-specific reference intervals for this test in the [employer] Laboratory Test Directory ([employer]). Protein C may be artifactually overestimated in the presence of heparin, direct thrombin inhibitors, or direct factor Xa inhibitors. If clinically indicated, consider repeat testing on a new specimen for confirmation after the presence of anticoagulant medications has been excluded. (J Thromb Haemost. 2020; 18(2):271-277). Performed By: [employer] [address] [place] [address] Chief Media Officer: Lopez Salgado MD, PhD CLIA Number: [id number] Blood BLOOD SPECIMEN / Unknown Lab Venipuncture / Unknown 02/09/2025 12:59 PM CDT 02/09/2025 1:20 PM CDT Alexandro Marks MD LAB - COAGULATION ORDERABLES F inal Result [facility]) [address] [place], [place] [address] * (ABNORMAL) ANTITHROMBIN III ANTIGEN (02/09/2025 12:59 PM CDT) AT III Ag % Blood 27(L) 82 - 136 % 02/11/2025 7:46 PM CDT [facility] ([facility]) Comment: Antithrombin may be decreased due to liver disease, acute thrombosis, DIC, heparin therapy, asparaginase therapy, or other causes. In the absence of acquired conditions, the low value may represent a risk factor for thrombosis. If clinically indicated, consider repeat testing on a new specimen for confirmation after acquired conditions have been excluded. A diagnosis of inherited antithrombin deficiency should be established only after other acquired causes of antithrombin deficiency have been excluded (J Thromb Haemost. 2020; 18(1):17-22). REFERENCE INTERVAL: Antithrombin Antigen Access complete set of age- and/or gender-specific reference intervals for this test in the [employer] Laboratory Test Directory ([employer]). Performed By: [employer] [address] [place] [address] Chief Media Officer: Lopez Salgado MD, PhD CLIA Number: [id number] Blood BLOOD SPECIMEN / Unknown Lab Venipuncture / Unknown 02/09/2025 12:59 PM CDT 02/09/2025 1:20 PM CDT Alexandro Marks MD LAB - COAGULATION ORDERABLES F inal Result [facility] ([facility]) [address] * XR Panorex (02/09/2025 12:14 PM CDT) Anatomical Region Laterality Modality Head Radiographic Jyotsna ging 02/10/2025 1:03 AM CDT Impressions 02/10/2025 1:05 AM CDT IMPRESSION: There are multiple dental restorations. The maxillary third molars were removed. No large dental caries or mandibular periapical lucency. > Interpreting Provider: Aleks Slade MD on 02/10/2025 1:05 AM Narrative 02/10/2025 1:05 AM CDT PROCEDURE: XR PANOREX DATE/TIME OF EXAM: 02/09/2025 12:14 PM CLINICAL INFORMATION: None relevant/not provided if blank. Indication: Z01.818: Encounter for pre-transplant evaluation for liver transplant Additional History: COMPARISON: None. Procedure Note Aleks Slade MD - 02/10/2025 PROCEDURE: XR PANOREX DATE/TIME OF EXAM: 02/09/2025 12:14 PM CLINICAL INFORMATION: None relevant/not provided if blank. Indication: Z01.818: Encounter for pre-transplant evaluation for liver transplant Additional History: COMPARISON: None. IMPRESSION: There are multiple dental restorations. The maxillary third molars were removed. No large dental caries or mandibular periapical lucency. > Interpreting Provider: Aleks Slade MD on 02/10/2025 1:05 AM Alexandro Marks MD DIAGNOSTIC IMAGING ORDERABLES Final Result * VAS Bilateral Venous Duplex Le (02/09/2025 12:13 PM CDT) Anatomical Region Laterality Modality Lower Extremity Ultrasound 02/09/2025 11:2 8 AM CDT Narrative Procedure Note Dannie Washington MD - 02/10/2025 us Alexandro Marks MD VASCULAR LAB ORDERABLES Edited Result - Final * CARDIOLIPIN ANTIBODY IGG (02/09/2025 10:54 AM CDT) Cardiolipin Antibody IgG <10 <=14 GPL 02/11/2025 1:26 AM CDT [facility] [employer] ([facility]) Comment: INTERPRETIVE INFORMATION: Anti-Cardiolipin IgG Ab <=14 GPL: Negative 15-19 GPL: Indeterminate 20-80 GPL: Low to Moderately Positive 81 GPL or above: High Positive The persistent presence of IgG and/or IgM cardiolipin (CL) antibodies in moderate or high levels (greater than 40 GPL and/or greater than 40 MPL units) is a laboratory criterion for the diagnosis of antiphospholipid syndrome (APS). Persistence is defined as moderate or high levels of IgG and/or IgM CL antibodies detected in two or more specimens drawn at least 12 weeks apart (J Throm Haemost. 2006;4:295-306). Lower positive levels of IgG and/or IgM CL antibodies (above cutoff but less than 40 GPL and/or less than 40 MPL units) may occur in patients with the clinical symptoms of APS; therefore, the actual significance of these levels is undefined. Results should not be used alone for diagnosis and must be interpreted in light of APS-specific clinical manifestations and/or other criteria phospholipid antibody tests. Performed By: [employer] [address] [place] [address] Chief Media Officer: Lopez Salgado MD, PhD CLIA Number: [id number] Blood BLOOD SPECIMEN / Unknown Lab Venipuncture / Unknown 02/09/2025 10:54 AM CDT 02/09/2025 11:20 AM CDT Alexandro Marks MD LAB - SEROLOGY ORDERABLES Sonia l Result Performing Organization Address City/[facility]/ZIP Co de Phone Number [facility] [employer]) [address] [place] [address] * MUMPS ANTIBODY IGG (02/09/2025 10:53 AM CDT) [facility] Mumps Virus Antibody IgG 138.0 AU/mL 02/12/2025 11:47 AM CDT [facility] [employer] ([facility]) Comment: INTERPRETIVE INFORMATION: Mumps Ab, IgG by MELANIE 8.9 AU/mL or less .... Negative - No significant level of detectable IgG mumps virus antibody 9.0-10.9 AU/mL ....... Equivocal - Repeat testing in 10-14 days may be helpful 11.0 AU/mL or greater: Positive - IgG antibody to mumps virus detected, which may indicate a current or past exposure/ immunization to mumps virus. The best evidence for current infection is a significant change on two appropriately timed specimens, where both tests are done in the same laboratory at the same time. Performed By: [employer] [address] [place] [address] Chief Media Officer: Lopez Salgado MD, PhD CLIA Number: [id number] Blood BLOOD SPECIMEN / Unknown Lab Venipuncture / Unknown 02/09/2025 10:53 AM CDT 02/09/2025 11:20 AM CDT Alexandro Marks MD LAB - CHEMISTRY ORDERABLES Fin al Result Performing Organization Address City/[facility]/ZIP Co de Phone Number [facility] [employer] ([facility]) [address] [place] [address] * CARDIOLIPIN ANTIBODY IGM (02/09/2025 10:51 AM CDT) Cardiolipin Antibody IgM <10 <=12 MPL 02/11/2025 1:26 AM CDT [facility] [employer] ([facility]) Comment: INTERPRETIVE INFORMATION: Anti-Cardiolipin IgM <=12 MPL: Negative 13-19 MPL: Indeterminate 20-80 MPL: Low to Moderately Positive 81 MPL or above: High Positive The persistent presence of IgG and/or IgM cardiolipin (CL) antibodies in moderate or high levels (greater than 40 GPL and/or greater than 40 MPL units) is a laboratory criterion for the diagnosis of antiphospholipid syndrome (APS). Persistence is defined as moderate or high levels of IgG and/or IgM CL antibodies detected in two or more specimens drawn at least 12 weeks apart (J Throm Haemost. 2006;4:295-306). Lower positive levels of IgG and/or IgM CL antibodies (above cutoff but less than 40 GPL and/or less than 40 MPL units) may occur in patients with the clinical symptoms of APS; therefore, the actual significance of these levels is undefined. Results should not be used alone for diagnosis and must be interpreted in light of APS-specific clinical manifestations and/or other criteria phospholipid antibody tests. Performed By: [employer] [address] [place] [address] Chief Media Officer: Lopez Salgado MD, PhD CLIA Number: [id number] Blood BLOOD SPECIMEN / Unknown Lab Venipuncture / Unknown 02/09/2025 10:51 AM CDT 02/09/2025 11:00 AM CDT Alexandro Marks MD LAB - SEROLOGY ORDERABLES Sonia abdi Result [employer] [facility]) [address] [place] [address] * RUBELLA ANTIBODY IGG TITER (02/09/2025 10:51 AM CDT) Pathologist [facility] Rubella Antibody IgG 73.0 IU/mL 02/12/2025 12:20 PM CDT [employer] ([facility]) Comment: INTERPRETIVE INFORMATION: Rubella Antibody, IgG Less than 9 IU/mL ........ Not Detected 9 - 9.9 IU/mL ............ Indeterminate-Repeat testing in 10-14 days may be helpful. 10 IU/mL or Greater ...... Detected The best evidence for current infection is a significant change on two appropriately timed specimens, where both tests are done in the same laboratory at the same time. The magnitude of the measured result is not indicative of the amount of antibody present. Performed By: [facility] [employer] [address] [place] [address] Chief Media Officer: Lopez Salgado MD, PhD CLIA Number: [id number] Blood BLOOD SPECIMEN / Unknown Lab Venipuncture / Unknown 02/09/2025 10:51 AM CDT 02/09/2025 11:00 AM CDT Alexandro Marks MD LAB - SEROLOGY ORDERABLES Sonia abdi Result [facility] [employer] [facility]) [address] [place] [address] * TOXOPLASMA GONDII ANTIBODY IGG (02/09/2025 10:51 AM CDT) [facility] Toxoplasma Antibody IgG <3.0 <=8.8 IU/mL 02/13/2025 12:59 AM CDT [facility] ([facility]) Comment: INTERPRETIVE INFORMATION: Toxoplasma Ab, IgG 7.1 IU/mL or less....... Not Detected 7.2-8.7 IU/mL .......... Indeterminate-Repeat testing in 10-14 days may be helpful. 8.8 IU/mL or greater ... Detected The best evidence for current infection is a significant change on two appropriately timed specimens, where both tests are done in the same laboratory at the same time. This test should not be used for blood donor screening, associated re-entry protocols, or for screening Human Cell, Tissues and Cellular and Tissue-Based Products (HCT/P). The magnitude of the measured result is not indicative of the amount of antibody present. Performed By: [facility] [employer] [address] [place] [address] Chief Media Officer: Lopez Salgado MD, PhD CLIA Number: [id number] Blood BLOOD SPECIMEN / Unknown Lab Venipuncture / Unknown 02/09/2025 10:51 AM CDT 02/09/2025 11:01 AM CDT Alexandro Marks MD LAB - CHEMISTRY ORDERABLES Fin al Result [facility] [employer]) [address] * BETA-2 GLYCOPROTEIN 1 ANTIBODY IGG/IGM PANEL (02/09/2025 10:51 AM CDT) Beta-2 Glycoprotein Antibody IgG <10 <=20 SGU 02/11/2025 3:32 AM CDT [facility] ([facility]) Beta-2 Glycoprotein Antibody IgM <10 <=20 SMU 02/11/2025 3:32 AM CDT [facility] [employer] [facility]) Comment: INTERPRETIVE INFORMATION: [id number] I, IgG and IgM Antibody The persistent presence of IgG and/or IgM beta 2 glycoprotein I (B2GPI) antibodies is a laboratory criterion for the diagnosis of antiphospholipid syndrome (APS). Persistence is defined as moderate or high levels of IgG and/or IgM B2GPI antibodies detected in two or more specimens drawn at least 12 weeks apart (J Throm Haemost. 2006;4:295-306). B2GPI results greater than 20 SGU (IgG) and/or SMU (IgM) are considered positive based on the cutoff values established for this test. International reference materials and consensus units for anti-B2GPI antibodies have not been established (Clin Guicho Acta. 2012;413(1-2):358-60; Arthritis Rheum. 2012;64(1):1-10.); results can be variable between different commercial immunoassays and cannot be compared. Strong clinical correlation is recommended for a diagnosis of APS. Low positive IgG and IgM B2GPI antibody levels should be interpreted in light of APS-specific clinical manifestations and/or other criteria phospholipid antibody tests. Performed By: [employer] [address] [place] [address] Chief Media Officer: Lopez Salgado MD, PhD CLIA Number: [id number] Blood BLOOD SPECIMEN / Unknown Lab Venipuncture / Unknown 02/09/2025 10:51 AM CDT 02/09/2025 11:01 AM CDT Alexandro Marks MD LAB - CHEMISTRY ORDERABLES Fin al Result [employer] ([facility]) [address] [place] [address], [facility] * (ABNORMAL) PROTEIN S ANTIGEN (02/09/2025 10:50 AM CDT) Pathologist [facility] Protein S Antigen Total 35(L) 60 - 150 % 02/10/2025 4:11 PM CDT [facility] ([facility]) Comment: This test was developed and its performance characteristics determined by [facility]. It has not been cleared or approved by the Food and Drug Administration. Protein S Free 61 61 - 136 % 02/10/2025 4:11 PM CDT [facility] ([facility]) Blood BLOOD SPECIMEN / Unknown Lab Venipuncture / Unknown 02/09/2025 10:50 AM CDT 02/09/2025 11:01 AM CDT N[facility]ative [facility] - 02/10/2025 4:11 PM CDT Performed at: [address] [place] [id number] Contact Acid Plant Operator Helper: Fly Corona MD, Phone: [phone] Alexandro Marks MD LAB - COAGULATION ORDERABLES F inal Result Performing Organization Address City/[facility]/ZIP Co de Phone Number [facility] ([facility]) [address] [place] [address] * VARICELLA ZOSTER ANTIBODY IGG (02/09/2025 10:50 AM CDT) Pathologist [facility] Varicella zoster Virus Antibody IgG 0.8 S/CO 02/12/2025 12:47 PM CDT [facility] ([facility]) Comment: INTERPRETIVE INFORMATION: VZV Ab, IgG <1.0 S/CO: Negative - No significant level of detectable varicella-zoster IgG antibody. >=1.0 S/CO: Positive - IgG antibody to varicella-zoster detected, which may indicate a current or past varicella-zoster infection. The best evidence for current infection is a significant change on two appropriately timed specimens, where both tests are done in the same laboratory at the same time. Performed By: [place] [address] Chief Media Officer: Lopez Salgado MD, PhD CLIA Number: [id number] Blood BLOOD SPECIMEN / Unknown Lab Venipuncture / Unknown 02/09/2025 10:50 AM CDT 02/09/2025 11:00 AM CDT Alexandro Marks MD LAB - CHEMISTRY ORDERABLES Fin al Result Performing Organization Address [facility] Co de Phone Number [facility] ([facility]) [address] [place] [address] * HEMOGLOBIN A1C (02/09/2025 10:50 AM CDT) Hemoglobin A1c <4.0 <=5.6 % 02/10/2025 8:54 AM CDT [facility] Estimated Average Glucose <68 mg/dL 02/10/2025 8:54 AM CDT [facility] Comment: HbA1c Interpretation: Normal : < 5.7% Pre-diabetes: 5.7-6.4% Diabetes: Equal to or greater than 6.5% Test results diagnostic of diabetes should be repeated for confirmation. Treatment target values recommended by ADA and other clinical organizations should be used to evaluate metabolic control in patients. Reference: [place] Diabetes Association, Standards of Care in Diabetes -2020 In patients 70 years and older consider HbA1c target range of 7.0-7.5% (Reference: Tae Olivares et al. JAMDA. 2012) The Sebia assay for the measurement of HbA1c is a National Glycohemoglobin Standardization Program (NGSP) certified method. Blood BLOOD SPECIMEN / Unknown Lab Venipuncture / Unknown 02/09/2025 10:50 AM CDT 02/09/2025 11:06 AM CDT Alexandro Marks MD LAB - CHEMISTRY ORDERABLES Fin al Result Performing Organization Address City/[facility]/ZIP Co de Phone Number [facility] [address] [place] [address], [facility] [phone] * HOMOCYSTEINE BLOOD QUANTITATIVE (02/09/2025 10:50 AM CDT) Pathologist [facility] Homocysteine 12.6 4.4 - 16.2 umol/L 02/09/2025 12:27 PM CDT [facility] Blood BLOOD SPECIMEN / Unknown Lab Venipuncture / Unknown 02/09/2025 10:50 AM CDT 02/09/2025 11:04 AM CDT Alexandro Marks MD LAB - CHEMISTRY ORDERABLES Fin al Result [facility] [address] [place] [address], [facility] [phone] * TYPE + SCREEN PANEL (02/09/2025 10:50 AM CDT) [facility] Antibody Screen NEG 11:54 AM CDT [facility] ABO Rh O POS 02/09/2025 11:54 AM CDT [facility] Blood Bank BLOOD SPECIMEN / Unknown Lab Venipuncture / Unknown 02/09/2025 10:50 AM CDT 02/09/2025 11:03 AM CDT Alexandro Marks MD LAB - BLOOD BANK ORDERABLES Fi nal Result [facility] [address] [place] [address], [facility] [phone] * RUBEOLA ANTIBODY IGG (02/09/2025 7:22 AM CDT) [facility] Measles (Rubeola) Antibody IgG >300.0 AU/mL 02/12/2025 2:36 PM CDT [facility] ([facility]) Comment: INTERPRETIVE INFORMATION: Measles (Rubeola) Antibody, IgG 13.4 AU/mL or less........ Negative - No significant level of detectable measles (rubeola) IgG antibody. 13.5-16.4 AU/mL .......... Equivocal - Repeat testing in 10-14 days may be helpful. 16.5 AU/mL or greater .... Positive - IgG antibody to measles (rubeola) detected which may indicate a current or past exposure/immunization to measles (rubeola). The best evidence for current infection is a significant change on two appropriately timed specimens, where both tests are done in the same laboratory at the same time. Performed By: [facility] [employer] [address] [place] [address] Chief Media Officer: Lopez Salgado MD, PhD CLIA Number: [id number] Blood BLOOD SPECIMEN / Unknown Lab Venipuncture / Unknown 02/09/2025 7:22 AM CDT 02/09/2025 7:22 AM CDT us Alexandro Marks MD LAB - CHEMISTRY ORDERABLES Fin al Result [facility] [employer] [facility]) [address] [place] [address] * QUANTIFERON-TB GOLD PLUS 4-TUBE (02/09/2025 6:50 AM CDT) Pathologist [facility] QuantiFERON Mitogen Minus NIL 2.97 IU/mL 02/11/2025 3:41 PM CDT [facility]) QuantiFERON Nil Value 0.04 IU/mL 02/11/2025 3:41 PM CDT [facility]) QuantiFERON Plus TB1 Minus NIL 0.04 <=0.34 IU/mL 02/11/2025 3:41 PM CDT [employer] [facility]) QuantiFERON Plus TB2 Minus NIL 0.03 <=0.34 IU/mL 02/11/2025 3:41 PM CDT [employer] [facility]) QuantiFERON-TB Gold Plus Negative Negative 02/11/2025 3:41 PM CDT [employer] [facility]) Comment: INTERPRETIVE INFORMATION:Quantiferon TB Gold Plus Interferon gamma release is measured for specimens from each of the four collection tubes. A qualitative result (Negative, Positive, or Indeterminate) is based on interpretation of the four values: NIL, MITOGEN minus NIL (MITOGEN-NIL), TB1 minus NIL (TB1-NIL), and TB2 minus NIL (TB2-NIL). The NIL value represents nonspecific reactivity produced by the patient specimen. The MITOGEN-NIL value serves as the positive control for the patient specimen, demonstrating successful lymphocyte activity. The TB1-NIL tube specifically detects CD4+ lymphocyte reactivity, specifically stimulated by the TB1 antigens. The TB2-NIL tube detects both CD4+ and CD8+ lymphocyte reactivity, stimulated by TB2 antigens. An overall Negative result does not completely rule out TB infection. A false-positive result in the absence of other clinical evidence of TB infection is not uncommon. Refer to: Updated Guidelines for Using Interferon Gamma Release Assays to Detect Mycobacterium tuberculosis Infection -- [place], 2010 (http://www.cdc.gov/mmwr/preview/mmwrhtml/zw0557o8.htm), for more information concerning test performance in low-prevalence populations and use in occupational screening. Performed By: [employer] [address] [place] [address] Chief Media Officer: Lopez Salgado MD, PhD CLIA Number: [id number] Blood BLOOD SPECIMEN / Unknown Lab Venipuncture / Unknown 02/09/2025 6:50 AM CDT 02/09/2025 6:50 AM CDT Alexandro Marks MD LAB - CHEMISTRY ORDERABLES [facility] al Result [facility] [employer] ([facility]) [address] [place] [address], [facility] * CYTOMEGALOVIRUS (CMV) QUANTITATIVE PLASMA (02/09/2025 5:50 AM CDT) CMV Quant by PCR, Interp Not detected Not detected 02/10/2025 5:30 PM CDT [facility] CMV Quant by PCR, Log NA log IU/mL 02/10/2025 5:30 PM CDT [facility] Blood BLOOD SPECIMEN / Unknown Lab Venipuncture / Unknown 02/09/2025 5:50 AM CDT 02/09/2025 2:43 PM CDT Narrative [facility] - 02/10/2025 5:30 PM CDT The Cytomegalovirus (CMV) DNA analysis utilized a plasma sample, real-time PCR (qPCR), and is reported as Not Detected, Detected (<35 IU/mL), 35 - 10,000,000 IU/mL, or >10,000,000 IU/mL The analytic sensitivity (LOD) of the assay is 35 IU/mL. Linear range of the assay is 35 - 10,000,000 IU/ml. The detection/quantitation of CMV DNA in plasma is based on the isolation of CMV DNA followed by real-time PCR in the presence of an unrelated DNA internal control. The internal control ensures that DNA is isolated, and that no general significant inhibitors of the qPCR process are present. Absolute CMV values or breakpoints for symptomatic disease have not been established and appear to be different between patient populations and laboratories. Therefore, it is important to monitor patients and to follow increases and/or decreases in the level of CMV in multiple blood specimens.. The analysis was performed using a U.S. FDA approved test methodology Otto lukasz CMV. Alexandro Marks MD LAB - CHEMISTRY ORDERABLES Fin al Result Performing Organization Address City/State/[facility] Co de Phone Number [facility] [address] [place] [address], [facility] [phone] * STRONGYLOIDES ANTIBODY IGG (02/09/2025 5:50 AM CDT) [facility] Strongyloides Antibody IgG 0.1 <=0.9 IV 02/12/2025 4:23 AM CDT [employer] ([facility]) Comment: INTERPRETIVE INFORMATION: Strongyloides Ab, IgG by RADHA 0.9 IV or less....... Negative - No significant level of Strongyloides IgG antibody detected. 1.0 IV................Equivocal - The Strongyloides IgG antibody result is borderline and therefore inconclusive. Recommend retesting the patient in 2-4 weeks, if clinically indicated. 1.1 IV or greater ... Positive - IgG antibodies to Strongyloides detected, which may suggest current or past infection. False-positive results may occur with prior exposure to other helminth infections. Testing low-prevalence populations may also result in false-positive results. Performed By: [employer] [address] [place] [id number] Chief Media Officer: Lopez Salgado MD, PhD CLIA Number: [id number] Blood BLOOD SPECIMEN / Unknown Lab Venipuncture / Unknown 02/09/2025 5:50 AM CDT 02/09/2025 12:25 PM CDT Alexandro Marks MD LAB - SEROLOGY ORDERABLES Sonia l Result [facility] [employer] [facility]) [address] [place] [address] * NICOTINE + METABOLITES BLOOD (02/09/2025 5:49 AM CDT) Nicotine <5 ng/mL 02/13/2025 5:39 PM CDT [facility] [employer] ([facility]) Comment: INTERPRETIVE INFORMATION: Nicotine and Metabolites, Serum or Plasma, Quantitative Methodology: Quantitative Liquid Chromatography-Tandem Mass Spectrometry Positive cutoff: 5 ng/mL For medical purposes only; not valid for forensic use. This test is designed to evaluate recent use of nicotine-containing products. Passive and active exposure cannot be discriminated definitively, although a cutoff of 10 ng/mL cotinine is frequently used for surgery qualification purposes. For smoking cessation programs or compliance testing, the absence of expected drug(s) and/or drug metabolite(s) may indicate non-compliance, inappropriate timing of specimen collection relative to drug administration, poor drug absorption, or limitations of testing. This test cannot distinguish between use of tobacco and purified nicotine products. The concentration value must be greater than or equal to the cutoff to be reported as positive. This test was developed and its performance characteristics determined by [employer]. It has not been cleared or approved by the US Food and Drug Administration. This test was performed in a CLIA certified laboratory and is intended for clinical purposes. Performed By: [employer] [address] [place] [address] Chief Media Officer: Lopez Salgado MD, PhD CLIA Number: [id number] Cotinine <5 ng/mL 02/13/2025 5:39 PM CDT [facility] [employer] ([facility]) Blood BLOOD SPECIMEN / Unknown Lab Venipuncture / Unknown 02/09/2025 5:49 AM CDT 02/09/2025 6:30 AM CDT Alexandro Marks MD LAB - CHEMISTRY ORDERABLES Fin al Result [facility] ([facility]) [address] [place] [address], [facility] * SYPHILIS ANTIBODY CASCADING REFLEX (02/09/2025 5:48 AM CDT) Treponema pallidum Antibody Non-react shay Non-react shay 02/09/2025 12:55 PM CDT [facility] Comment: No Laboratory evidence of syphilis infection. Note: Circulating antibodies may be low or undetectable in early infection. If recent exposure is suspected, re-draw sample in 2-4 weeks and repeat testing. Blood BLOOD SPECIMEN / Unknown Lab Venipuncture / Unknown 02/09/2025 5:48 AM CDT 02/09/2025 12:20 PM CDT Alexandro Marks MD LAB - SEROLOGY ORDERABLES Sonia l Result [facility] [address] [place] [address], [facility] [phone] * (ABNORMAL) LUPUS ANTICOAGULANT PANEL (02/09/2025 5:41 AM CDT) APTT 43.1(H) 23.0 - 38.4 Seconds 02/11/2025 1:48 PM CDT [facility] PT 18.6(H) 12.1 - 14.8 Seconds 02/11/2025 1:48 PM CDT [facility] INR 1.5 See Comment 02/11/2025 1:48 PM CDT [facility]ACLOT-[facility] Buffer 45.5 Seconds 025 1:48 PM CDT [facility] Phospholipid 43.7 Seconds 02/11/2025 1:48 PM CDT [facility] Delta 1.8 <8.0 Seconds 02/11/2025 1:48 PM CDT [facility] Interpretation [facility]OT-[facility] Negative 02/11/2025 1:48 PM CDT [facility] Comment:Up to 15-20% of elizabeth ents with lupus anticoagulant associated with antiphospholipid antibody syndrome (APAS) will have negative STACLOT-LA results. For these patients we recommend additional testing to include the Dilute Herrera Viper Venom Time (DRVVT) test. Immunoassay measurements of anti-cardiolipin and anti-beta-2 glycoprotein 1 are recommended if the DRVVT, and STACLOT-LA tests are negative and there is clinical suspicion of APAS. Blood BLOOD SPECIMEN / Unknown Lab Venipuncture / Unknown 02/09/2025 5:41 AM CDT 02/09/2025 7:01 AM CDT Alexandro Marks MD LAB - HEMATOLOGY ORDERABLES Fi nal Result Performing Organization Address [facility]/ZIP Co de Phone Number [address] [address], [facility] [phone] * (ABNORMAL) URIC ACID BLOOD (02/09/2025 5:41 AM CDT) Uric Acid 9.6(H) 2.6 - 6.0 mg/dL 02/09/2025 7:05 AM CDT [facility] Blood BLOOD SPECIMEN / Unknown Lab Venipuncture / Unknown 02/09/2025 5:41 AM CDT 02/09/2025 6:50 AM CDT Alexandro Marks MD LAB - CHEMISTRY ORDERABLES Fin al Result Performing Organization Address City/[facility]/ZIP Co de Phone Number [address] [address], [place] [phone] * FACTOR V LEIDEN MUTATION PANEL (02/09/2025 5:41 AM CDT) Factor V Leiden Source Whole Blood 02/13/2025 12:45 PM CDT [facility] ([facility]) Factor V Leiden PCR/FRET Negative 02/13/2025 12:45 PM CDT [facility] [facility] ([facility]) Comment: Indication for testing: Assess genetic risk for thrombosis. NEGATIVE: The factor V Leiden variant, c.1601G>A; [id number], was not detected. This does not exclude a genetic cause for thrombophilia. If this individual has had a previous venous thromboembolism, this negative result is unlikely to significantly reduce the risk for recurrence; thus, future clinical management to reduce recurrence should not be altered. This result has been reviewed and approved by Shanae Case M.D. BACKGROUND INFORMATION: Factor V Leiden (F5) R506Q Mutation CHARACTERISTICS: Venous thromboembolism (VTE) is multifactorial caused by a combination of genetic and environmental factors. The Factor V Leiden (FVL) variant is the most common cause of inherited VTEs, accounting for over 90 percent of activated protein C (APC) resistance. Because the FVL variant eliminates the APC cleavage site, factor V is inactivated slower, thus persisting longer in blood circulation, leading to more thrombin production. Other genetic risk factors for VTE include, male sex and variants in antithrombin, protein C, protein S, or factor XIII. Non-genetic risk factors include, age, smoking, prolonged immobilization, malignant neoplasms, surgery, , oral contraceptives, estrogen replacement therapy, tamoxifen and raloxifene therapy. INCIDENCE OF FACTOR V LEIDEN VARIANT: Approximately 5 percent of Caucasians, 2 percent of Hispanics, 1 percent of Americans and 0.5 percent of Asians are heterozygous; homozygosity occurs in 1 in 1500 Caucasians. INHERITANCE: Semi-dominant; both heterozygotes and homozygotes are at increased risk for VTE. PENETRANCE: Lifetime risk of VTE is 10 percent for heterozygotes and 80 percent of homozygotes. 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 Legacy nomenclature: R506Q (1691G>A) CLINICAL SENSITIVITY: 20-50 percent of individuals with an isolated VTE have the FVL variant. METHODOLOGY: Polymerase chain reaction and fluorescence monitoring. ANALYTICAL SENSITIVITY AND SPECIFICITY: 99 percent. LIMITATIONS: Diagnostic errors can occur due to rare sequence variations. F5 gene mutations, other than p.[id number], will not be detected. This test was developed and its performance characteristics determined by [employer]. It has not been cleared or approved by the US Food and Drug Administration. This test was performed in a CLIA certified laboratory and is intended for clinical purposes. Counseling and informed consent are recommended for genetic testing. Consent forms are available online. Performed By: [employer] [address] [place] [address] Chief Media Officer: Lopez Salgado MD, PhD CLIA Number: [id number] Blood BLOOD SPECIMEN / Unknown Lab Venipuncture / Unknown 02/09/2025 5:41 AM CDT 02/09/2025 6:37 AM CDT Alexandro Marks MD LAB - COAGULATION ORDERABLES F inal Result Performing Organization Address [facility]/ZIP Co de Phone Number [facility] ([facility]) [address] [place], [place] [address] * (ABNORMAL) VITAMIN D 25-HYDROXY (02/09/2025 5:41 AM CDT) Pathologist [facility] Vitamin D, 25 Hydroxy 6.7(L) 30.0 - 80.0 ng/mL 02/09/2025 7:23 AM CDT [facility] Comment: The recommendations for 25-Hydroxy Vitamin D clinical decision points are as follows: Deficient: <20.0 ng/mL Insufficient: 20.0 - 29.9 ng/mL Sufficient: 30.0 - 100.0 ng/mL Potential Toxicity: >100 ng/mL Reference: The Endocrine Society Clinical Practice Guidelines. 2011 If the 25-Hydroxy Vitamin D results are inconsitent with clinical evidence, it is recommended that follow-up testing using a method such as LC/MS/MS be performed to confirm the result. Blood BLOOD SPECIMEN / Unknown Lab Venipuncture / Unknown 02/09/2025 5:41 AM CDT 02/09/2025 6:50 AM CDT Alexandro Marks MD LAB - CHEMISTRY ORDERABLES Fin al Result [address] [address], [place] [phone] * ALPHA FETOPROTEIN BLOOD TUMOR MARKER (02/09/2025 5:41 AM CDT) Pathologist [facility] Alpha-Fetoprote in Tumor Marker 3.7 <=8.3 ng/mL 02/09/2025 7:22 AM CDT [facility] Comment: AFP values will vary depending on testing procedure used. Results are not comparable across different methods. AFP values obtained by [facility] using an Morrison Alinity Immunoassay. Blood BLOOD SPECIMEN / Unknown Lab Venipuncture / Unknown 02/09/2025 5:41 AM CDT 02/09/2025 6:50 AM CDT Alexandro Marks MD LAB - CHEMISTRY ORDERABLES Fin al Result Performing Organization Address City/[facility]/ZIP Co de Phone Number [address] [address], [facility] [phone] * (ABNORMAL) LIPID PROFILE (02/09/2025 5:41 AM CDT) Pathologist [facility] Cholesterol Total 75 <200 mg/dL 02/09/2025 7:05 AM [facility] HDL 10(L) >40 mg/dL 02/09/2025 7:05 AM [facility] Comment: ATP III Classification of HDL Cholesterol: <40 mg/dL: Considered a major risk factor. >60 mg/dL: Considered a negative risk factor. LDL Calculated 55 <100 mg/dL 02/09/2025 7:05 AM [facility] Comment: ATP III Classification of LDL Cholesterol: <100 mg/dL: Optimal 100 - 129 mg/dL: Near Optimal/Above Optimal 130 - 159 mg/dL: Borderline High 160 - 189 mg/dL: High >190 mg/dL: Very High Triglycerides 50 <150 mg/dL 02/09/2025 7:05 AM [facility] Comment: ATP III Classification of Triglycerides: <150 mg/dL: Normal 150 - 199 mg/dL: Borderline High 200 - 400 mg/dL: High >500 mg/dL: Very High Blood BLOOD SPECIMEN / Unknown Lab Venipuncture / Unknown 02/09/2025 5:41 AM CDT 02/09/2025 6:50 AM CDT Alexandro Marks MD LAB - CHEMISTRY ORDERABLES Fin al Result Performing Organization Address City/[facility]/ZIP Co de Phone Number [address] [address], [place] [phone] * HLA ANTIBODY SCREEN LUM CLASS 2 SAB (02/08/2025 4:31 PM CDT) % PRA 0 02/10/2025 4:59 PM CDT [facility] ([facility]) Class 2 SAB Test Date [id number] 02/10/2025 4:59 PM CDT [facility] ([facility]) Comment: Methodology - Luminex Bead-Based Immunoassay. This test was developed and its performance characteristics determined by the [facility]. It has not been cleared or approved by the U.S. Food and Drug Administration. The FDA has determined that such clearance or approval is not necessary. This test is used for clinical purposes. It should not be regarded as investigational or for research. This laboratory is certified under the Clinical Laboratory Improvement Amendments of 1988 (CLIA-88) as qualified to perform high complexity clinical laboratory testing. CLIA ID# [id number] Performed at: [facility], [address] [place] [id number] Contact Acid Plant Operator Helper: Hermes Orourke, Ph.D., D([facility]), Blood BLOOD SPECIMEN / Unknown Lab Venipuncture / Unknown 02/08/2025 4:31 PM CDT 02/08/2025 4:51 PM CDT Alexandro Marks MD LAB - BLOOD BANK ORDERABLES Fi nal Result [facility] ([facility]) [facility] [place], [place] [id number] [place] [address] * HLA ANTIBODY SCREEN LUM CLASS 1 SAB (02/08/2025 4:31 PM CDT) % PRA 1 02/10/2025 4:59 PM CDT [facility] ([facility]) Class 1 LUM SAB Specificity A80 02/10/2025 4:59 PM CDT [facility] ([facility]) Class 1 SAB Test Date [id number] 02/10/2025 4:59 PM CDT [facility] ([facility]) Comment: Methodology - Luminex Bead-Based Immunoassay. This test was developed and its performance characteristics determined by the [facility]. It has not been cleared or approved by the U.S. Food and Drug Administration. The FDA has determined that such clearance or approval is not necessary. This test is used for clinical purposes. It should not be regarded as investigational or for research. This laboratory is certified under the Clinical Laboratory Improvement Amendments of 1988 (CLIA-88) as qualified to perform high complexity clinical laboratory testing. CLIA ID# [id number] Performed at: [facility], [address] [place] [address] Contact Acid Plant Operator Helper: Hermes Orourke, Ph.D., D([facility]), Blood BLOOD SPECIMEN / Unknown Lab Venipuncture / Unknown 02/08/2025 4:31 PM CDT 02/08/2025 4:51 PM CDT Alexandro Marks MD LAB - BLOOD BANK ORDERABLES Fi nal Result Performing Organization Address [facility] Co de Phone Number [facility] ([facility]) [address] [place], [place] [id number] [place] [address] * HIV-1 HIV-2 ANTIBODY + HIV P24 AG PANEL (02/08/2025 4:31 PM CDT) HIV Antigen/Antibod y 1 & 2 Non-reacti ve Non-react shay 02/08/2025 6:54 PM CDT [facility] Comment:No Laboratory eviden ce of HIV infection. Blood BLOOD SPECIMEN / Unknown Lab Venipuncture / Unknown 02/08/2025 4:31 PM CDT 02/08/2025 4:51 PM CDT Alexandro Marks MD LAB - CHEMISTRY ORDERABLES Fin al Result Performing Organization Address City/[facility]/ZIP Co de Phone Number [facility] [address] [place] [address], [facility] [phone] * BLOOD TYPE ABO+ RH PANEL (02/08/2025 4:31 PM CDT) ABO Rh O POS 02/08/2025 7:0 1 PM CDT [facility] Blood BLOOD SPECIMEN / Unknown Lab Venipuncture / Unknown 02/08/2025 4:31 PM CDT 02/08/2025 5:44 PM CDT us Alexandro Marks MD LAB - BLOOD BANK ORDERABLES Fi nal Result [facility] [address] [place] [address], [facility] [phone] * URINE DRUG SCREEN IMMUNOASSAY (02/08/2025 4:13 PM CDT) [facility] Amphetamines Screen Urine Negative Negative: < 1000 ng/mL 02/08/2025 4:52 PM CDT [facility] Barbiturates Screen Urine Negative Negative: < 200 ng/mL 02/08/2025 4:52 PM CDT [facility] Benzodiazepine Screen Urine Negative Negative: < 200 ng/mL 02/08/2025 4:52 PM CDT [facility] Opiates Urine Negative Negative: < 300 ng/mL 02/08/2025 4:52 PM CDT [facility] Cocaine Metabolites Urine Negative Negative: < 300 ng/mL 02/08/2025 4:52 PM CDT [facility] Phencyclidine Screen Urine Negative Negative: < 25 ng/ml 02/08/2025 4:52 PM CDT [facility] Cannabinoids Screen Urine Negative Negative: <50 ng/mL 02/08/2025 4:52 PM CDT [facility] Methadone Screen Urine Negative Negative: < 300 ng/mL 02/08/2025 4:52 PM CDT [facility] Fentanyl Screen Urine Negative Negative: <1.5 ng/mL 02/08/2025 4:52 PM CDT [facility] Urine URINE / Unknown Collection / Unknown 02/08/2025 4:13 PM CDT 02/08/2025 4:20 PM CDT Narrative [facility] - 02/08/2025 4:52 PM CDT The Urine Toxicology Screening Panel does not screen for Propoxyphene, Meprobamate, Carisoprodol, Trazodone, yvog-tgv-kcohlys medications and/or volatiles (Acetone, Isopropanol, Methanol or Ethylene Glycol). Ethanol, Salicylate, Acetaminophen, Tricyclic Antidepressants and several therapeutic drugs may be individually assayed in serum or plasma specimen. Toxicology testing by the [facility] is an aid to medical diagnosis and treatment of patients. No documented chain of custody was maintained. Results are intended to be used for clinical purposes only. us Alexandro Marks MD LAB - URINE CHEMISTRY ORDERABL ES Final Result [facility] [address] [address], [facility] [phone] * HLA TYPING DNA LOW RESOLUTION DR,DQ (02/08/2025 7:56 AM CDT) DR DQ Low Resolution DRB1-1 *03(DR17) 02/10/2025 4:54 PM CDT [facility] ([facility]) DR DQ Low Resolution DRB1-2 *15 02/10/2025 4:54 PM CDT [facility] ([facility]) DR DQ Low Resolution DQB1-1 *02 02/10/2025 4:54 PM CDT [facility] ([facility]) DR DQ Low Resolution DQB1-2 *06 02/10/2025 4:54 PM CDT [facility] ([facility]) DR DQ Low Resolution DRB3-1 *02 02/10/2025 4:54 PM CDT [facility] ([facility]) DR DQ Low Resolution DRB3-2 Negative 02/10/2025 4:54 PM CDT [facility] ([facility]) DR DQ Low Resolution DRB4-1 Negative 02/10/2025 4:54 PM CDT [facility] ([facility]) DR DQ Low Resolution DRB4-2 Negative 02/10/2025 4:54 PM CDT [facility] ([facility]) DR DQ Low Resolution DRB5-1 *01 02/10/2025 4:54 PM CDT [facility] ([facility]) DR DQ Low Resolution DRB5-2 Negative 02/10/2025 4:54 PM CDT [facility] ([facility]) DR DQ Low Resolution Methodology Real Time PCR 02/10/2025 4:54 PM CDT [facility] ([facility]) DR DQ Low Resolution test date [id number] 02/10/2025 4:54 PM CDT [facility] ([facility]) Comment: Methodology - Real-Time PCR This test was developed and its performance characteristics determined by the [facility]. It has not been cleared or approved by the U.S. Food and Drug Administration. The FDA has determined that such clearance or approval is not necessary. This test is used for clinical purposes. It should not be regarded as investigational or for research. This laboratory is certified under the Clinical Laboratory Improvement Amendments of 1988 (CLIA-88) as qualified to perform high complexity clinical laboratory testing. CLIA ID# [id number] Performed at: [facility], [address] [place] [address] Contact Acid Plant Operator Helper: Hermes Orourke, Ph.D., D([facility]), Blood BLOOD SPECIMEN / Unknown No Charge Blood Draw / Unknown 02/08/2025 7:56 AM CDT 02/09/2025 7:56 AM CDT Chinmay Christie MD LAB - BLOOD BANK ORDERABLES F inal Result [facility] ([facility]) [address] [place] [address], [facility] * HLA TYPING DNA LOW RESOLUTION A,B,C (02/08/2025 7:56 AM CDT) ABC DNA A1 *01 02/10/2025 4:54 PM CDT [facility] ([facility]) ABC DNA A2 *24 02/10/2025 4:54 PM CDT [facility] ([facility]) ABC DNA B1 *07 02/10/2025 4:54 PM CDT [facility] ([facility]) ABC DNA B2 *18 02/10/2025 4:54 PM CDT [facility] ([facility]) ABC DNA BW1 6 02/10/2025 4:54 PM CDT [facility] ([facility]) ABC DNA BW2 6 02/10/2025 4:54 PM CDT [facility] ([facility]) ABC DNA C1 *05 02/10/2025 4:54 PM CDT [facility] ([facility]) ABC DNA C2 *07 02/10/2025 4:54 PM CDT [facility] ([facility]) ABC DNA Methodology Real Time PCR 02/10/2025 4:54 PM CDT [facility] ([facility]) ABC DNA Test Date [id number] 08/2025 4:54 PM CDT [facility] ([facility]) Comment: Methodology - Real-Time PCR This test was developed and its performance characteristics determined by the [facility]. It has not been cleared or approved by the U.S. Food and Drug Administration. The FDA has determined that such clearance or approval is not necessary. This test is used for clinical purposes. It should not be regarded as investigational or for research. This laboratory is certified under the Clinical Laboratory Improvement Amendments of 1988 (CLIA-88) as qualified to perform high complexity clinical laboratory testing. CLIA ID# [id number] Performed at: [facility], [address] [place] [id number] Contact Acid Plant Operator Helper: Hermes Orourke, Ph.D., D([facility]), Blood BLOOD SPECIMEN / Unknown No Charge Blood Draw / Unknown 02/08/2025 7:56 AM CDT 02/09/2025 7:56 AM CDT us Chinmay Christie MD LAB - BLOOD BANK ORDERABLES F inal Result [facility] ([facility]) [address] [place], [place] [id number] [place] [address] * US Retroperitoneal Complete (02/02/2025 9:43 AM CDT) Anatomical Region Laterality Modality Abdomen Ultrasound 02/02/2025 10:1 9 AM CDT Impressions 02/02/2025 10:33 AM CDT IMPRESSION: Mildly increased echogenicity of bilateral kidneys may be seen with medical renal disease. Report dictated by Howard Medellin MD (residential mental health worker) Letty Friend MD have personally reviewed and interpreted this examination/study. > Interpreting Provider: Letty Olsen MD on 02/02/2025 10:33 AM Narrative 02/02/2025 10:33 AM CDT EXAMINATION: Complete retroperitoneal sonogram HISTORY: N17.9: MANISH (acute kidney injury) COMPARISON: No prior study is available for comparison. FINDINGS: Right kidney: 9.6 x 4.4 x 4.4 cm Left kidney: 9.2 x 4.4 x 4.1 cm Renal parenchymal echogenicity is mildly increased. There is no evidence of a solid renal mass, renal calculi, or hydronephrosis. Blood flow is seen within the renal arteries and veins. The bladder is decompressed with a Dao catheter in place.. Incidentally noted ascites. Procedure Note Letty Olsen MD - 02/02/2025 EXAMINATION: Complete retroperitoneal sonogram HISTORY: N17.9: MANISH (acute kidney injury) COMPARISON: No prior study is available for comparison. FINDINGS: Right kidney: 9.6 x 4.4 x 4.4 cm Left kidney: 9.2 x 4.4 x 4.1 cm Renal parenchymal echogenicity is mildly increased. There is no evidenceof a solid renal mass, renal calculi, or hydronephrosis. Blood flow is seen within the renal arteries and veins. The bladder is decompressed with a Dao catheter in place.. Incidentally noted ascites. IMPRESSION: Mildly increased echogenicity of bilateral kidneys may be seen withmedical renal disease. Report dictated by Howard Medellin MD (residential mental health worker) Letty Friend MD have personally reviewed and interpreted this examination/study. > Interpreting Provider: Letty Olsen MD on 02/02/2025 10:33 AM us Rojas Lopez MD US ORDERABLES Final Result * PHOSPHATIDYLETHANOL (PETH) (02/02/2025 6:17 AM CDT) PEt 16:0/18.1 (POPEth) <10 ng/mL 02/05/2025 7:19 AM CDT [facility] ([facility]) Comment: PEth 16:0/18:1 (POPEth) Less than 10 ng/mL............Not detected Less than 20 ng/mL............Abstinence or light alcohol consumption 20 - 200 ng/mL................Moderate alcohol consumption Greater than 200 ng/mL........Heavy alcohol consumption or chronic alcohol use (Reference: Marciano Pickard and Shannon Kincaid 2018 J. Forensic Sci) PEth 16:0/18.2 (PLPEth) <10 ng/mL 02/05/2025 7:19 AM [facility] ([facility]) Comment:Reference ranges are not well established. EER Peth See Note 02/05/2025 7:19 AM [facility] ([facility]) Comment: Authorized individuals can access the [employer] Enhanced Report with an [employer] Connect account using the following link. Your local lab can assist you in obtaining the patient report if you don't have a Connect account. [email or web address] Interpretation PEth See Comment 02/05/2025 7:19 AM [facility] ([facility]) Comment: Phosphatidylethanol (PEth) is a group of phospholipids formed in the presence of ethanol, phospholipase D and phosphatidylcholine. PEth is known to be a direct alcohol biomarker. The predominant PEth homologues are PEth 16:0/18:1 (POPEth) and PEth 16:0/18:2 (PLPEth), which account for 37-46% and 26-28% of the total PEth homologues, respectively. PEth is incorporated into the phospholipid membrane of red blood cells and has a general half-life of 4-10 days and a window of detection of 2-4 weeks. However, the window of detection is longer in individuals who chronically or excessively consume alcohol. The limit of quantification is 10 ng/mL. Serial monitoring of PEth may be helpful in monitoring alcohol abstinence over time. PEth results should be interpreted in the context of the patient's clinical and behavioral history. Patients with advanced liver disease may have falsely elevated PEth concentrations (Clair MICHAUD et al 2018, Alcoholism Clinical & Experimental Research). This test was developed and its performance characteristics determined by [facility]. It has not been cleared or approved by the U.S. Food and Drug Administration. This test was performed in a CLIA-certified laboratory and is intended for clinical purposes. Performed By: [facility] [address] [place] [address] Chief Media Officer: Lopez Salgado MD, PhD CLIA Number: [id number] Blood BLOOD SPECIMEN / Unknown Lab Venipuncture / Unknown 02/02/2025 6:17 AM CDT 02/02/2025 6:34 AM CDT us Zack Ng MD LAB - CHEMISTRY ORDERABLES Final Result [facility] ([facility]) [address] [place] [address] * UREA NITROGEN URINE RANDOM (02/01/2025 9:04 PM CDT) Urea Nitrogen Random Urine 46 Not Established mg/dL 02/01/2025 9:18 PM CDT [facility] Urine URINE SPECIMEN OBTAINED BY CLEAN CATCH PROCEDURE / Unknown 02/01/2025 9:04 PM CDT 02/01/2025 9:04 PM CDT us Zack Ng MD LAB - URINE CHEMISTRY ORDERABLES Final Result [address] [address], [facility] [phone] * ALBUMIN BODY FLUID (02/01/2025 3:44 PM CDT) Albumin Fluid 0.8 Not Established For Fluids g/dL 02/01/2025 4:19 PM CDT [facility] Fluid Type Peritoneal Fluid 02/01/2025 4:19 PM CDT [facility] Fluid PERITONEAL FLUID / Unknown Collection / Unknown 02/01/2025 3:44 PM CDT 02/01/2025 3:47 PM CDT Narrative [facility] - 02/01/2025 4:19 PM CDT The analytical performance of this test has been independently validated by the laboratory. A reference range has not been established for this fluid. Comparison of this result with the concentration in blood, serum or plasma is recommended. Zack Ng MD LAB - BODY FLUID ORDERABLES Sonia l Result Performing Organization Address [facility] de Phone Number [address] [address], [facility] [phone] * LDH BODY FLUID (02/01/2025 3:44 PM CDT) LD Fluid 46 Not Established For Fluids Units/L 02/01/2025 4:19 PM CDT [facility] Fluid Type Peritoneal Fluid 02/01/2025 4:19 PM CDT [facility] Fluid PERITONEAL FLUID / Unknown Collection / Unknown 02/01/2025 3:44 PM CDT 02/01/2025 3:47 PM CDT Narrative [facility] - 02/01/2025 4:19 PM CDT The analytical performance of this test has been independently validated by the laboratory. A reference range has not been established for this fluid. Comparison of this result with the concentration in blood, serum or plasma is recommended. Zack Ng MD LAB - BODY FLUID ORDERABLES Sonia l Result Performing Organization Address [facility] de Phone Number [address] [address], [facility] [phone] * GLUCOSE BODY FLUID (02/01/2025 3:44 PM CDT) Glucose Fluid 108 Not Established For Fluids mg/dL 02/01/2025 4:07 PM CDT [facility] Fluid Type Peritoneal Fluid 02/01/2025 4:07 PM CDT [facility] Fluid PERITONEAL FLUID / Unknown Collection / Unknown 02/01/2025 3:44 PM CDT 02/01/2025 3:47 PM CDT Narrative [facility] - 02/01/2025 4:07 PM CDT The analytical performance of this test has been independently validated by the laboratory. A reference range has not been established for this fluid. Comparison of this result with the concentration in blood, serum or plasma is recommended. Zack Ng MD LAB - BODY FLUID ORDERABLES Sonia l Result Performing Organization Address [facility] Co de Phone Number [address] [address], [facility] [phone] * CELL COUNT W DIFFERENTIAL FLUID (02/01/2025 3:44 PM CDT) Fluid Source Peritoneal 02/01/2025 3:58 PM CDT [facility] Fluid Appearance CLEAR 02/01/2025 3:58 PM CDT [facility] Fluid Color YELLOW 02/01/2025 3:58 PM CDT [facility] Total Nucleated Cells Fluid 25 Reference Range Not Established x10E6/L 02/01/2025 3:58 PM CDT [facility] RBC Count Fluid <2,000 Reference Range Not Established x10E6/L 02/01/2025 3:58 PM CDT [facility] Fluid PERITONEAL FLUID / Unknown Collection / Unknown 02/01/2025 3:44 PM CDT 02/01/2025 3:47 PM CDT Narrative [facility] - 02/01/2025 3:58 PM CDT No reference ranges established for body fluid cell counts. Any reference ranges provided are derived from published literature. The test results must be integrated into the clinical context for interpretation. Zack Ng MD LAB - BODY FLUID ORDERABLES Sonia l Result Performing Organization Address [facility]/ZIP Co de Phone Number [address] [address], [place] [phone] * CYTOLOGY NON-VOICE COACH PANEL (STL) (02/01/2025 3:43 PM CDT) Case Report Medical Cytology Report Case: [id number] Authorizing Provider: Zack Ng MD Collected: 02/01/2025 03:43 PM Ordering Location: [facility] 6S ACUTE Received: 02/02/2025 07:22 AM Pathologist: Jonny Rankin MD Specimen: Ascities Fluid 02/06/2025 5:33 PM T [facility] Specimen Adequacy Adequate cellularity for evaluation. 02/06/2025 5:33 PM CDT [facility] Final Diagnosis Ascitic fluid, cytology: - Negative for malignant cells - Rare mesothelial cells present 02/06/2025 5:33 PM [facility] Clinical History Cirrhosis and ascites. 02/06/2025 5:33 PM T [facility] Gross Description 1 Pap stained Thin Prep slide from 5 cc of yellow, clear fluid (no material for cell block) 02/06/2025 5:33 PM T [facility] Pathologist Location at [facility] 02/06/2025 5:33 PM T [facility] Disclaimer The performance characteristics of all immunohistochemical and indirect immunofluorescence stains (if any) cited in this report were determined by the [facility] of [facility]. Some of these tests rely on the use of analyte-specific reagents and are subject to specific labeling requirements by the US Food and Drug Administration. Such tests were developed by the [facility] and have not been cleared or approved by the FDA. The FDA has determined that such clearance and approval is not necessary. These tests are used for clinical purposes and should not be regarded as investigational or for research. This laboratory is certified under the Clinical Laboratory Improvement Amendments (CLIA) as qualified to perform high complexity clinical laboratory testing. This case has been personally reviewed and interpreted by the attending (teaching) pathologist. 02/06/2025 5:33 PM T [facility] Embedded Images 02/06/2025 5:33 PM CDT [facility] Pathology/Cytolo gy ASCITIC FLUID SPECIMEN / Unknown Collection / Unknown 02/01/2025 3:43 PM CDT 02/02/2025 7:22 AM CDT Zack Ng MD LAB - PATHOLOGY/CYTOLOGY ORDERAB LES Final Result [facility] [address] [place], [place] [address] [phone] * CULTURE FUNGUS OTHER+FUNGUS SMEAR (02/01/2025 3:42 PM CDT) Culture No fungus isolated JORGE 02/28/2025 9:46 AM CDT [facility] Fungus Stain No yeast or hyphae seen 02/28/2025 9:46 AM CDT [facility] Microbiology PERITONEAL FLUID / Unknown Collection / Unknown 02/01/2025 3:42 PM CDT 02/01/2025 4:42 PM CDT us Zack Ng MD LAB - MICROBIOLOGY ORDERABLES Fi nal Result Performing Organization Address City/[facility]/ZIP Co de Phone Number [facility] [address] [place] [address], [facility] [phone] * CULTURE FLUID+GRAM STAIN (02/01/2025 3:42 PM CDT) Culture No growth JORGE 02/05/2025 12:50 AM CDT [facility] Gram Stain No organisms seen 025 12:50 AM CDT [facility] Gram Stain No polymorphonuclear cells 02/05/2025 12:50 AM CDT [facility] Fluid PERITONEAL FLUID / Unknown Collection / Unknown 02/01/2025 3:42 PM CDT 02/01/2025 11:26 PM CDT us Zack Ng MD LAB - MICROBIOLOGY ORDERABLES Fi nal Result Performing Organization Address City/[facility] Co de Phone Number [facility] [address] [place] [address], [facility] [phone] * CULTURE AFB+SMEAR (02/01/2025 3:42 PM CDT) Culture No acid-fast bacillus isolated 03/14/2025 9:37 AM CDT [facility] AFB Smear No acid-fast bacilli seen 03/14/2025 9:37 AM CDT [facility] Microbiology PERITONEAL FLUID / Unknown Collection / Unknown 02/01/2025 3:42 PM CDT 02/01/2025 4:42 PM CDT us Zack Ng MD LAB - MICROBIOLOGY ORDERABLES Fi nal Result [facility] [address] [place] [address], [facility] [phone] * CULTURE ANAEROBE (02/01/2025 3:42 PM CDT) Culture No anaerobic organisms isolated JORGE 02/07/2025 1:31 PM CDT [facility] Microbiology PERITONEAL FLUID / Unknown Collection / Unknown 02/01/2025 3:42 PM CDT 02/01/2025 4:42 PM CDT us Zack Ng MD LAB - MICROBIOLOGY ORDERABLES Fi nal Result Performing Organization Address [facility] Co de Phone Number [facility] [address] [place] [address], [facility] [phone] * (ABNORMAL) URINALYSIS REFLEX TO MICROSCOPIC NO CULTURE (02/01/2025 10:28 AM CDT) Color UA [place](A) Yellow, Straw 02/01/2025 12:05 PM T [facility] Clarity UA Ex. Turbid(A) Clear 02/01/2025 12:05 PM T [facility] Glucose UA Normal Normal 02/01/2025 12:05 PM T [facility] Bilirubin UA Negative Negative 02/01/2025 12:05 PM T [facility] Ketone UA Negative Negative 02/01/2025 12:05 PM T [facility] Specific [address] UA 1.019 1.005 - 1.030 02/01/2025 12:05 PM [facility] Blood UA 3+(A) Negative 02/01/2025 12:05 PM [facility] pH UA 6.0 5.0 - 9.0 pH 02/01/2025 12:05 PM [facility] Protein UA 3+(A) Negative 02/01/2025 12:05 PM [facility] Urobilinogen UA Normal Normal mg/dL 02/01/2025 12:05 PM [facility] Nitrite UA Negative Negative 02/01/2025 12:05 PM [facility] Leukocyte UA 500 [address]ELLE/uL(A) Negative 02/01/2025 12:05 PM [facility] RBC UA >100(A) 0 - 5 # /hpf 02/01/2025 12:05 PM [facility] WBC UA >100(A) 0 - 5 # /hpf 02/01/2025 12:05 PM [facility] WBC Clumps UA Many(A) None Seen /HPF 02/01/2025 12:05 PM [facility] Bacteria UA 3+(A) None Seen 02/01/2025 12:05 PM [facility] Squamous Epithelial Cells 3-5 0 - 5 /hpf 02/01/2025 12:05 PM [facility] Budding Yeast Many(A) None seen /hpf 02/01/2025 12:05 PM [facility] Calcium Oxalate Crystals Many(A) None seen /HPF 02/01/2025 12:05 PM [facility] Urine URINE SPECIMEN OBTAINED VIA [employer] URINARY CATHETER / Unknown Collection / Unknown 02/01/2025 10:28 AM CDT 02/01/2025 11:50 AM CDT us Rojas Lopez MD LAB - URINALYSIS ORDERABLES Sonia l Result Performing Organization Address City/State/[facility] Co de Phone Number [facility] [address] [place] [address], [facility] [phone] * LYTES (NA K CL) URINE RANDOM PANEL (02/01/2025 10:28 AM CDT) Sodium Urine 113 Not Established mmol/L 02/01/2025 12:16 PM [facility] Potassium Urine 21.3 Not Established mmol/L 02/01/2025 12:16 PM [facility] Chloride Random Urine 98 Not Established mmol/L 02/01/2025 12:16 PM [facility] Urine URINE SPECIMEN OBTAINED BY CLEAN CATCH PROCEDURE / Unknown Collection / Unknown 02/01/2025 10:28 AM CDT 02/01/2025 11:50 AM CDT us Zack Ng MD LAB - URINE CHEMISTRY ORDERABLES Final Result Performing Organization Address City/[facility]/ZIP Co de Phone Number [address] [address], [place] [phone] * CREATININE URINE RANDOM (02/01/2025 10:28 AM CDT) Creatinine Urine 37.24 Not Established mg/dL 02/01/2025 1:57 PM CDT [facility] Urine URINE SPECIMEN OBTAINED BY CLEAN CATCH PROCEDURE / Unknown Collection / Unknown 02/01/2025 10:28 AM CDT 02/01/2025 11:50 AM CDT us Zack Ng MD LAB - URINE CHEMISTRY ORDERABLES Final Result Performing Organization Address [facility] de Phone Number [address] [address], [place] [phone] * HEPATITIS C AB SCREEN RFLX NAAT QUANT (01/31/2025 10:04 AM CDT) Pathologist [facility] Hepatitis C Antibody Non-react shay Non-reac tive 01/31/2025 11:06 AM CDT [facility] Comment:Hepatitis C Antibody screen indicates no serologic evidence of past or current infection with Hepatitis C Virus. Patients with unexplained liver disease who are immunocompromised or suspected of having acute Hepatitis C infection may benefit from Nucleic Acid Test (ALEXANDER) for Hepatitis C Viral RNA to confirm Hepatitis C status. Blood BLOOD SPECIMEN / Unknown Lab Venipuncture / Unknown 01/31/2025 10:04 AM CDT 01/31/2025 10:15 AM CDT us Rojas Lopez MD LAB - CHEMISTRY ORDERABLES Final Result Performing Organization Address [facility]/ZIP Co de Phone Number [address] [address], [place] [phone] * (ABNORMAL) HEPATITIS B SURFACE ANTIBODY QUANT (01/31/2025 10:04 AM CDT) Hepatitis B Virus Surface Antibody Reactive( A) Non-react shay 01/31/2025 11:06 AM CDT [facility] Comment: > 12 mIU/mL Hepatitis B surface Antibody (HBsAb). Reactive for HBsAb - individual is considered immune to Hepatitis B Virus infection. Hepatitis B Surface Antibody Quantitative 178.4(H) <8.0 mIU/mL 01/31/2025 11:06 AM CDT [facility] Comment: Hepatitis B Surface Antibody Numeric Result Interpretation: Nonreactive: <8.0 mIU/mL Indeterminate: 8.0 - 12.0 mIU/mL Reactive: >12.0 mIU/mL Blood BLOOD SPECIMEN / Unknown Lab Venipuncture / Unknown 01/31/2025 10:04 AM CDT 01/31/2025 10:15 AM CDT Narrative [facility] - 01/31/2025 11:06 AM CDT This assay should not be used for blood, plasma, or tissue donor screening. This assay is not recommended for neonates born to HBV-infected or suspected HBV-infected mothers. us Rojas Lopez MD LAB - SEROLOGY ORDERABLES Final Result [address] [address], [facility] [phone] * (ABNORMAL) CERULOPLASMIN (01/31/2025 10:04 AM CDT) [facility] Ceruloplasmin 15(L) 20 - 60 mg/dL 01/31/2025 12:26 PM CDT [facility] Blood BLOOD SPECIMEN / Unknown Lab Venipuncture / Unknown 01/31/2025 10:04 AM CDT 01/31/2025 10:15 AM CDT us Rojas Lopez MD LAB - CHEMISTRY ORDERABLES Final Result Performing Organization Address City/[facility]/ZIP Co de Phone Number [address] [address], [place] [phone] * QUOAC-5-[id number] BLOOD (01/31/2025 10:04 AM CDT) Pddgm-9-Cjcdod ypsin 112 90 - 200 mg/dL 01/31/2025 12:26 PM CDT [facility] Blood BLOOD SPECIMEN / Unknown Lab Venipuncture / Unknown 01/31/2025 10:04 AM CDT 01/31/2025 10:15 AM CDT Rojas Lopez MD LAB - CHEMISTRY ORDERABLES Final Result [address] [address], [facility] [phone] * HEPATITIS B SURFACE ANTIGEN W RFLX CONFIRMATION (01/31/2025 10:04 AM CDT) Hepatitis B Virus Surface Antigen Non-reacti ve Non-reacti ve 01/31/2025 11:06 AM CDT [facility] Blood BLOOD SPECIMEN / Unknown Lab Venipuncture / Unknown 01/31/2025 10:04 AM CDT 01/31/2025 10:15 AM CDT us Rojas Lopez MD LAB - CHEMISTRY ORDERABLES Final Result Performing Organization Address City/[facility]/ZIP Co de Phone Number [address] [address], [place] [phone] * (ABNORMAL) IRON + TRANSFERRIN PANEL (01/31/2025 10:04 AM CDT) Iron 69 40 - 150 ug/dL 01/31/2025 12:45 PM CDT [facility] Transferrin 51(L) 174 - 382 mg/dL 01/31/2025 12:45 PM CDT [facility] Transferrin Saturation % 100(H) 16 - 50 % 01/31/2025 12:45 PM CDT [facility] TIBC Calculated 64(L) 240 - 450 ug/dL 01/31/2025 12:45 PM CDT [facility] Blood BLOOD SPECIMEN / Unknown Lab Venipuncture / Unknown 01/31/2025 10:04 AM CDT 01/31/2025 10:15 AM CDT us Rojas Lopez MD LAB - CHEMISTRY ORDERABLES Final Result [address] [address], [place] [phone] * IGM BLOOD (01/31/2025 10:04 AM CDT) IgM 79 37 - 286 mg/dL 01/31/2025 12:45 PM CDT [facility] Blood BLOOD SPECIMEN / Unknown Lab Venipuncture / Unknown 01/31/2025 10:04 AM CDT 01/31/2025 10:15 AM CDT us Rojas Lopez MD LAB - CHEMISTRY ORDERABLES Final Result Performing Organization Address City/[facility]/ZIP Co de Phone Number [address] [address], [place] [phone] * (ABNORMAL) IGG BLOOD (01/31/2025 10:04 AM CDT) IgG 585(L) 767 - 1,590 mg/dL 01/31/2025 12:45 PM CDT [facility] Blood BLOOD SPECIMEN / Unknown Lab Venipuncture / Unknown 01/31/2025 10:04 AM CDT 01/31/2025 10:15 AM CDT us Rojas Lopez MD LAB - CHEMISTRY ORDERABLES Final Result [address] [address], [place] [phone] * HEPATITIS B CORE ANTIBODY IGM (01/31/2025 10:04 AM CDT) Hepatitis B Core Virus Antibody IgM Non-reacti ve Non-reacti ve 01/31/2025 11:06 AM CDT [facility] Blood BLOOD SPECIMEN / Unknown Lab Venipuncture / Unknown 01/31/2025 10:04 AM CDT 01/31/2025 10:15 AM CDT us Rojas Lopez MD LAB - CHEMISTRY ORDERABLES Final Result Performing Organization Address City/[facility]/ZIP Co de Phone Number [facility] [address] [place] [address], [facility] [phone] * (ABNORMAL) FERRITIN (01/31/2025 10:04 AM CDT) Ferritin 576(H) 13 - 204 ng/mL 01/31/2025 11:06 AM CDT [facility] Blood BLOOD SPECIMEN / Unknown Lab Venipuncture / Unknown 01/31/2025 10:04 AM CDT 01/31/2025 10:15 AM CDT us Rojas Lopez MD LAB - CHEMISTRY ORDERABLES Final Result Performing Organization Address [facility] Co de Phone Number [address] [address], [facility] [phone] * LEANDRO HEP-2 IGG BY IFA (01/31/2025 10:03 AM CDT) LEANDRO HEp-2 IgG <1:80 <1:80 02/03/2025 12:26 AM CDT [facility]) LEANDRO Interpretive Comment See Note 02/03/2025 12:26 AM CDT [facility] ([facility]) Comment: Antinuclear antibodies by IFA negative for homogeneous, speckled, nucleolar, centromere, and nuclear dots patterns. Cytoplasmic antibodies by IFA negative for reticular/AMA, discrete/GW body-like, polar/golgi-like, rods and rings, and cytoplasmic speckled patterns. INTERPRETIVE INFORMATION: LEANDRO Interpretive Comment Presence of antinuclear antibodies (LEANDRO) is a hallmark feature of systemic autoimmune rheumatic diseases (SARD). However, LEANDRO lacks diagnostic specificity and is associated with a variety of diseases (cancers, autoimmune, infectious, and inflammatory conditions) and may also occur in healthy individuals in varying prevalence. The lack of diagnostic specificity requires confirmation of positive LEANDRO by more specific serologic tests. LEANDRO (nuclear reactivity) positive patterns reported include centromere, homogeneous, nuclear dots, nucleolar, or speckled. LEANDRO (cytoplasmic reactivity) positive patterns reported include reticular/AMA, discrete/GW body-like, polar/golgi-like, cytoplasmic speckled or rods and rings. All positive patterns are reported to endpoint titers (1:2560). Reported patterns may help guide differential diagnosis, although they may not be specific for individual antibodies or diseases. Mitotic staining patterns not reported. Negative results do not necessarily rule out SARD. Performed By: [employer] [address] [place] [address] Chief Media Officer: Lopez Salgado MD, PhD CLIA Number: [id number] Blood BLOOD SPECIMEN / Unknown Lab Venipuncture / Unknown 01/31/2025 10:03 AM CDT 01/31/2025 10:15 AM CDT us Rojas Lopez MD LAB - SEROLOGY ORDERABLES Final Result [facility] ([facility]) [address] [place] [address] * LIVER KIDNEY MICROSOME - 1 ANTIBODY IGG (01/31/2025 10:03 AM CDT) Liver-Kidney Microsomal Antibody 1.1 0.0 - 24.9 U 02/05/2025 2:12 AM CDT [facility] [employer] ([facility]) Comment: REFERENCE INTERVAL: Liver-Kidney Microsome-1 Antibody, IgG by RADHA 0.0 - 20.0 U .............. Negative 20.1 - 24.9 U ............. Equivocal 25.0 U or Greater ......... Positive A positive result indicates the presence of IgG antibodies to recombinant human P450 2D6 and suggests the possibility of autoimmune hepatitis, type 2. A negative LKM-1 does not rule out the presence of autoimmune hepatitis, type 2. Performed by [employer], [address] [place] [address] [email or web address], John Alejo MD, Lab. Director CLIA Number: [id number] Blood BLOOD SPECIMEN / Unknown 01/31/2025 10:03 AM CDT 02/01/2025 10:45 AM CDT Zack Ng MD LAB - SEROLOGY ORDERABLES Final Result Performing Organization Address City/[facility]/ZIP Co de Phone Number [facility]) [address] * SMOOTH MUSCLE ANTIBODY W REFLEX TITER (01/31/2025 10:03 AM CDT) F-Actin Antibody IgG 4 0 - 19 Units 02/02/2025 7:04 AM CDT [facility] ([facility]) Comment: If F-Actin (Smooth Muscle) Antibody, IgG is negative, the Smooth Muscle Antibody titer by IFA is not performed. REFERENCE INTERVAL: F-Actin (Smooth Muscle) Antibody, IgG by RADHA 19 Units or less ....... Negative 20 - 30 Units .......... Weak Positive-Suggest repeat testing in two to three weeks with fresh specimen. 31 Units or greater..... Positive-Suggestive of autoimmune hepatitis type 1 or chronic active hepatitis. F-actin IgG antibodies have been shown to have increased sensitivity for autoimmune hepatitis (AIH) but lower specificity than smooth muscle antibodies (SMA). F-actin IgG antibodies can also be seen in SMA-negative disease controls (non-AIH), especially in patients with primary biliary cirrhosis and chronic hepatitis C infections. Some patients with AIH may be SMA-positive but negative for F-actin IgG. Consider testing for SMA by IFA if suspicion for AIH is strong. Performed By: [employer] [address] [place] [address] Chief Media Officer: Lopez Salgado MD, PhD CLIA Number: [id number] Blood BLOOD SPECIMEN / Unknown Lab Venipuncture / Unknown 01/31/2025 10:03 AM CDT 01/31/2025 10:15 AM CDT Rojas Lopez MD LAB - SEROLOGY ORDERABLES Final Result Performing Organization Address City/[facility]/ZIP Co de Phone Number [facility] ([facility]) [address] * MITOCHONDRIAL ANTIBODY SCREEN (01/31/2025 10:03 AM CDT) Pathologist [facility] Mitochondrial M2 Antibody 1.0 0.0 - 24.9 Units 02/02/2025 7:05 AM CDT [facility] ([facility]) Comment: REFERENCE INTERVAL: Mitochondrial (M2) Antibody, IgG 20.0 Units or less ......... Negative 20.1 - 24.9 Units........... Equivocal 25.0 Units or greater....... Positive Anti-mitochondrial antibodies (AMA) are thought to be present in 90-95% of patients with primary biliary cholangitis (PBC). However, the frequency of detected antibodies may be cohort or assay dependent, as lower sensitivities have been reported. Not all PBC patients are positive for AMA; some patients may be positive for SP100 and/or GP210 antibodies. A negative result does not rule out PBC. Performed By: [place] [address] Chief Media Officer: Lopez Salgado MD, PhD CLIA Number: [id number] Blood BLOOD SPECIMEN / Unknown Lab Venipuncture / Unknown 01/31/2025 10:03 AM CDT 01/31/2025 10:15 AM CDT us Rojas Lopez MD LAB - CHEMISTRY ORDERABLES Final Result [facility]) [address] * (ABNORMAL) LEANDRO BLOOD SCREEN W/REFLEX TITER (01/31/2025 10:03 AM CDT) Pathologist [facility] LEANDRO IgG Detected (A) None Detected 02/02/2025 7:40 AM CDT [facility] ([facility]) Comment: Antibodies to Anti-Nuclear Antibodies (LEANDRO) detected. Additional testing to follow. INTERPRETIVE INFORMATION: Anti-Nuclear Antibodies (LEANDRO), IgG by RADHA Antinuclear Antibodies (LEANDRO), IgG by RADHA: LEANDRO specimens are screened using enzyme-linked immunosorbent assay (RADHA) methodology. All RADHA results reported as Detected are further tested by indirect fluorescent assay (IFA) using HEp-2 substrate with an IgG-specific conjugate. The LEANDRO RADHA screen is designed to detect antibodies against dsDNA, histones, SS-A (Ro), SS-B (La), Kincaid, Kincaid/[employer], Scl-70, Christy-1, centromeric proteins, other antigens extracted from the HEp-2 cell nucleus. LEANDRO RADHA assays have been reported to have lower sensitivities than LEANDRO IFA for systemic autoimmune rheumatic diseases (SARD). Negative results do not necessarily rule out SARD. Performed By: [facility] [employer] [address] [place] [address] Chief Media Officer: Lopez Salgado MD, PhD CLIA Number: [id number] Blood BLOOD SPECIMEN / Unknown Lab Venipuncture / Unknown 01/31/2025 10:03 AM CDT 01/31/2025 10:15 AM CDT Rojas Lopez MD LAB - CHEMISTRY ORDERABLES Final Result [facility]) [address] [place] [address] * MICROSOMAL ANTIBODY LIVER/KIDNEY (01/31/2025 10:03 AM CDT) Liver/Kidney Microsomal Antibody IgG <1:20 <1:20 02/02/2025 1:15 PM CDT [facility] ([facility]) Comment: INTERPRETIVE INFORMATION: Pzvqk-Nqxteo-Txiwufkcm Abs, IgG Liver-Kidney Microsome IgG antibody (anti-LKM), as detected by indirect immunofluorescent antibody (IFA) techniques, may be observed in patients with autoimmune hepatitis type 2 (AIH-2), AIH-2 associated with autoimmune hrydbwolhhsqblwwvq-wrqjaczsbbo-jkxmikwpbc dystrophy (APECED), viral hepatitis C or D, and some forms of drug-induced hepatitis. This IFA does not differentiate among the four types of LKM antibodies (LKM-1, LKM-2, LKM-3, and a fourth type that recognizes CY and CY antigens). Of these, anti-LKM-1 (cytochrome [id number]) IgG antibodies are considered specific for AIH-2. This test was developed and its performance characteristics determined by [employer]. It has not been cleared or approved by the [place] Food and Drug Administration. This test was performed in a CLIA certified laboratory and is intended for clinical purposes. Performed By: [employer] [address] [place] [address] Chief Media Officer: Lopez Salgado MD, PhD CLIA Number: [id number] Blood BLOOD SPECIMEN / Unknown Lab Venipuncture / Unknown 01/31/2025 10:03 AM CDT 01/31/2025 10:15 AM CDT Rojas Lopez MD LAB - CHEMISTRY ORDERABLES Final Result Performing Organization Address [facility] de Phone Number [facility]) [address] [place] [address] * (ABNORMAL) HEPATITIS A ANTIBODY (01/31/2025 10:03 AM CDT) [facility] Hepatitis A Virus Antibody Total Positive( A) Negative 02/01/2025 8:10 PM CDT [facility]) Comment: The positive anti-HAV is consistent with recent or remote Hepatitis A infection or antibody response to HAV vaccination. False positive anti-HAV can occur. Performed By: [employer] [address] [place] [address] Chief Media Officer: Lopez Salgado MD, PhD CLIA Number: [id number] Blood BLOOD SPECIMEN / Unknown Lab Venipuncture / Unknown 01/31/2025 10:03 AM CDT 01/31/2025 10:15 AM CDT Rojas Lopez MD LAB - CHEMISTRY ORDERABLES Final Result Performing Organization Address [facility] de Phone Number [facility]) [address] [place] [address] * TROPONIN-I HIGH SENSITIVE REFLEX 1HOUR (01/30/2025 11:54 AM CDT) [facility] Troponin I High Sensitive 14 <=14 ng/L 01/30/2025 12:52 PM CDT [facility] Delta Troponin I HS 01/30/2025 12:52 PM CDT [facility] Comment:Delta value intentio mira not calculated. Baseline to 1 hour specimen collection interval exceeded. Blood BLOOD SPECIMEN / Unknown Lab Venipuncture / Unknown 01/30/2025 11:54 AM CDT 01/30/2025 12:15 PM CDT us Ulises Canales MD LAB - CHEMISTRY ORDERABLES Fin al Result Performing Organization Address [facility]/ZIP Co de Phone Number [address] [address], [place] [phone] * TROPONIN-I HIGH SENSITIVE (01/30/2025 11:54 AM CDT) Pathologist [facility] Troponin I High Sensitive 14 <=14 ng/L 01/30/2025 12:48 PM CDT [facility] Blood BLOOD SPECIMEN / Unknown Lab Venipuncture / Unknown 01/30/2025 11:54 AM CDT 01/30/2025 12:15 PM CDT us Rojas Lopez MD LAB - CHEMISTRY ORDERABLES Final Result Performing Organization Address [facility] Co de Phone Number [address] [address], [place] [phone] * (ABNORMAL) LACTIC ACID BLOOD (01/30/2025 11:53 AM CDT) Only the most recent of2 resultswithin the time period is included. Pathologist [facility] Lactic Acid-Stat 2.1(H) <=2.0 mmol/L 01/30/2025 12:35 PM CDT [facility] Blood BLOOD SPECIMEN / Unknown Lab Venipuncture / Unknown 01/30/2025 11:53 AM CDT 01/30/2025 12:11 PM CDT us Rojas Lopez MD LAB - CHEMISTRY ORDERABLES Final Result Performing Organization Address [facility]/ZIP Co de Phone Number [address] [address], [place] [phone] * XR CHEST 1VW PORTABLE (01/30/2025 8:28 AM CDT) Anatomical Region Laterality Modality Chest Digital Radiogra phy 01/31/2025 4:23 AM CDT Impressions 01/31/2025 4:23 AM CDT IMPRESSION: No acute cardiopulmonary abnormalities. > Interpreting Provider: Aleks Slade MD on 01/31/2025 4:23 AM Narrative 01/31/2025 4:23 AM CDT PROCEDURE: XR CHEST 1VW PORTABLE DATE/TIME OF EXAM: 01/30/2025 8:28 AM CLINICAL INFORMATION: None relevant/not provided if blank. Indication: K74.60: Cirrhosis of liver with ascites, unspecified hepatic cirrhosis type (HCC) R18.8: Cirrhosis of liver with ascites, unspecified hepatic cirrhosis type (HCC) Additional History: COMPARISON: None. FINDINGS: Single frontal view of the chest demonstrates a normal sized heart and pulmonary vasculature. No focal consolidation, pleural effusion or pneumothorax. No acute osseous abnormalities. Procedure Note Aleks Slade MD - 01/31/2025 PROCEDURE: XR CHEST 1VW PORTABLE DATE/TIME OF EXAM: 01/30/2025 8:28 AM CLINICAL INFORMATION: None relevant/not provided if blank. Indication: K74.60: Cirrhosis of liver with ascites, unspecified hepatic cirrhosis type (HCC) R18.8: Cirrhosis of liver with ascites, unspecified hepatic cirrhosistype (HCC) Additional History: COMPARISON: None. FINDINGS: Single frontal view of the chest demonstrates a normal sized heart and pulmonary vasculature. No focal consolidation, pleural effusion or pneumothorax. No acute osseous abnormalities. IMPRESSION: No acute cardiopulmonary abnormalities. > Interpreting Provider: Aleks Slade MD on 01/31/2025 4:23 AM Ulises Canales MD DIAGNOSTIC IMAGING ORDERABLES Final Result * CULTURE BLOOD (01/30/2025 12:24 AM CDT) Only the most recent of2 resultswithin the time period is included. Culture No growth day 5 JORGE 02/04/2025 7:00 AM CDT [facility] Blood PERIPHERAL BLOOD / Unknown Lab Venipuncture / Unknown 01/30/2025 12:24 AM CDT 01/30/2025 12:30 AM CDT Ulises Canales MD LAB - MICROBIOLOGY ORDERABLES Final Result [facility] [address] [place] [address], [facility] [phone] * PHOSPHORUS BLOOD (01/30/2025 12:24 AM CDT) Phosphorus 4.3 2.9 - 5.1 mg/dL 01/30/2025 12:55 AM CDT [facility] Blood BLOOD SPECIMEN / Unknown Lab Venipuncture / Unknown 01/30/2025 12:24 AM CDT 01/30/2025 12:39 AM CDT Ulises Canales MD LAB - CHEMISTRY ORDERABLES Fin al Result Performing Organization Address City/[facility]/ZIP Co de Phone Number [address] [address], [facility] [phone] * MAGNESIUM BLOOD (01/30/2025 12:24 AM CDT) Magnesium 1.6 1.6 - 2.6 mg/dL 01/30/2025 12:55 AM CDT [facility] Blood BLOOD SPECIMEN / Unknown Lab Venipuncture / Unknown 01/30/2025 12:24 AM CDT 01/30/2025 12:39 AM CDT Ulises Canales MD LAB - CHEMISTRY ORDERABLES Fin al Result [address] [address], [place] [phone] * (ABNORMAL) PROCALCITONIN LEVEL (01/30/2025 12:10 AM CDT) PROCALCITONIN 0.28(H) <=0.10 ng/mL 01/30/2025 1:26 AM CDT [facility] Blood BLOOD SPECIMEN / Unknown Lab Venipuncture / Unknown 01/30/2025 12:10 AM CDT 01/30/2025 12:30 AM CDT Narrative [facility] - 01/30/2025 1:26 AM CDT The change in procalcitonin (PCT) concentration over time provides support in decision making on antibiotic discontinuation for suspected or confirmed septic patients. Follow-up samples should be tested once every 1-2 days based upon physician discretion taking into account the patient s evolution and progress. Consider discontinuation of antibiotic therapy if the PCT current is <= 0.5 ng/mL or if the delta PCT is > 80%. Duration of antibiotics should not be determined solely on PCT; established guidelines for the indication should be followed. PCT peak: Highest observed PCT concentration PCT current: Most recent PCT concentration Calculate delta PCT using the following equation: Delta PCT = PCT Peak PCT current X 100% PCT Peak The Change in Procalcitonin Calculator is available at [email or web address] If clinical picture has not improved and PCT remains high, reevaluate and consider treatment failure or other causes. us Ulises Canales MD LAB - CHEMISTRY ORDERABLES Fin al Result [address] [address], [place] [phone] * (ABNORMAL) TROPONIN-I HIGH SENSITIVE BASELINE + 1HR (01/30/2025 12:10 AM CDT) Troponin I High Sensitive 16(H) <=14 ng/L 01/30/2025 1:11 AM CDT [facility] Blood BLOOD SPECIMEN / Unknown Lab Venipuncture / Unknown 01/30/2025 12:10 AM CDT 01/30/2025 12:32 AM CDT Ulises Canales MD LAB - CHEMISTRY ORDERABLES Fin al Result [address] [address], [place] [phone] * (ABNORMAL) CBC W AUTO DIFFERENTIAL (01/30/2025 12:10 AM [facility]) [facility] Signature WBC 14.5(H) 4.0 - 10.7 x10E9/L 01/30/2025 12:40 AM [facility] RBC Count 2.79(L) 3.90 - 5.20 x10E12/L 01/30/2025 12:40 AM [facility] Hemoglobin 9.3(L) 11.9 - 15.8 g/dL 01/30/2025 12:40 AM [facility] Hematocrit 27.9(L) 34.8 - 46.1 % 01/30/2025 12:40 AM [facility] MCV 100.0(H) 80.0 - 98.0 fL 01/30/2025 12:40 AM [facility] MCH 33.3 26.7 - 33.6 pg 01/30/2025 12:40 AM [facility] MCHC 33.3 31.7 - 36.3 g/dL 01/30/2025 12:40 AM [facility] RDW-CV 14.9(H) 11.3 - 14.8 % 01/30/2025 12:40 AM [facility] Platelet Count 262 150 - 420 x10E9/L 01/30/2025 12:40 AM [facility] MPV 9.7 7.8 - 11.4 fL 01/30/2025 12:40 AM [facility] Neutrophil % 77.4(H) 41.0 - 74.0 % 01/30/2025 12:40 AM [facility] Lymphocyte % 10.6(L) 17.0 - 47.0 % 01/30/2025 12:40 AM [facility] Monocyte % 7.7 3.0 - 11.0 % 01/30/2025 12:40 AM [facility] Eosinophil % 2.6 0.0 - 7.0 % 01/30/2025 12:40 AM [facility] Basophil % 1.0 0.0 - 1.6 % 01/30/2025 12:40 AM [facility] Immature Granulocytes % 0.7 0.0 - 1.0 % 01/30/2025 12:40 AM [facility] Neutrophil Absolute 11.24(H) 1.60 - 7.50 x10E9/L 01/30/2025 12:40 AM [facility] Lymphocyte Absolute 1.53 1.00 - 4.40 x10E9/L 01/30/2025 12:40 AM [facility] Monocyte Absolute 1.11(H) 0.15 - 1.00 x10E9/L 01/30/2025 12:40 AM [facility] Eosinophil Absolute 0.38 0.00 - 0.60 x10E9/L 01/30/2025 12:40 AM [facility] Basophil Absolute 0.14(H) 0.00 - 0.13 x10E9/L 01/30/2025 12:40 AM [facility] Blood BLOOD SPECIMEN / Unknown Lab Venipuncture / Unknown 01/30/2025 12:10 AM CDT 01/30/2025 12:33 AM CDT us Ulises Canales MD LAB - HEMATOLOGY ORDERABLES nal Result [facility] [address] [place] [address], [facility] [phone] * (ABNORMAL) B-TYPE NATRIURETIC PEPTIDE (01/30/2025 12:10 AM CDT) BNP 618(H) <100 pg/mL 01/30/2025 1:11 AM [facility] Comment: A decision threshold of 100 pg/mL has been demonstrated to provide the maximal combination of sensitivity, specificity and predictive value for the diagnosis of congestive heart failure (CHF). Virtually all patients with no evidence of CHF have BNP values less than 100 pg/mL. A BNP value greater than 100 pg/mL is consistent with the diagnosis of CHF in the appropriate clinical setting. In a study of 693 patients (male and female) with diagnosed CHF, the following values were determined based on the NYHA functional classification system: NYHA Functional Class Mean Valule (pg/mL) % >100 pg/mL I 320 58.1 II 432 73.0 III 656 79.0 IV 1635 98.3 Blood BLOOD SPECIMEN / Unknown Lab Venipuncture / Unknown 01/30/2025 12:10 AM CDT 01/30/2025 12:33 AM CDT us Ulises Canales MD LAB - CHEMISTRY ORDERABLES Fin al Result [facility] [address] [place] [address], [place] [phone] from Last 3 Months Insurance [employer] MEDICARE ADV Advance Directives Documents on File Type Date Recorded 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
--- OUTSIDE RECORDS SUMMARY | 2025-03-14 11:26 | XMS_ITS | Clinical Summary ---
Author Organization [facility] Address [address] [place] [address] Phone Care Team Providers Care Children'S Tutor Name Role Phone Josue Palomares MD Primary Care Provider Allergies No known active allergies Encounters Date Type Department Care Team Description 03/07/2025 2:00 PM CDT - 03/07/2025 11:59 PM CDT [facility] [address] [place] [address] Dameon Green MD Discharge Disposition: Discharged to home or Selfcare 03/07/2025 Travel 03/07/2025 [facility] [address] [place] [address] Dameon Green MD Other ascites (Primary Dx) from Last 3 Months Social History Tobacco Use Types Packs/Day Years Used Date Smoking Tobacco: Never Assessed Comments Unknown Sex and Gender Information Value Date Recorded Sex Assigned at Not on file Legal Sex Female 1:49 PM CDT Gender Identity Not on file Sexual Orientation Not on file Last Filed Vital Signs Vital Sign Reading Time Taken Comments Blood Pressure 112/67 03/07/2025 3:41 PM CDT Pulse - - Temperature - - Respiratory Rate 16 03/07/2025 3:41 PM CDT Oxygen Saturation 96% 03/07/2025 3:41 PM CDT Inhaled Oxygen Concentration - - Weight - - Height - - Body Mass Index - - Plan of Treatment Health Maintenance Due Date Last Done Comments DEXA Bone Density 1950 Mammogram 1952 Colonoscopy 1997 Cologuard 2002 Pneumococcal Immunization (50+ years) (1 of 1 - PCV) 2002 Zoster Immunization (1 of 2) 2002 SARS-COV-2 Immunization ( - season) 2024 10/07/2022, 03/09/2022, 08/21/2021, Additional history exists Colorectal Cancer Screening 01/05/2025 Influenza Immunization (Season Ended) 2025 10/07/2022, 08/21/2021, 09/09/2019, Additional history exists Immunochemical Fecal Occult Blood 01/04/2026 01/04/2025 Respiratory Syncytial Virus (RSV) Immunization (Adult) (1 - 1-dose 75+ series) 2027 TdaP Immunization Completed 02/20/2013 Hepatitis C Virus (HCV) Screening Completed 01/31/2025, 01/04/2025 Hepatitis B Immunization Aged Out No longer eligible based on patient's age to complete this topic Human Papillomavirus (HPV) Immunization Aged Out No longer eligible based on patient's age to complete this topic Meningococcal Immunization (ACWY) Aged Out No longer eligible based on patient's age to complete this topic Rotavirus Immunization Aged Out No lo nger eligible based on patient's age to complete this topic Procedures Procedure Name Priority Date/Time Associated Diagnosis Comments US GUIDANCE AND PARACENTESIS Routine 03/07/2025 3:43 PM CDT Other ascites from Last 3 Months Results * US GUIDANCE AND PARACENTESIS (03/07/2025 3:43 PM CDT) Anatomical Region Laterality Modality Abdomen N/A Ultrasound 03/07/2025 3:51 PM CDT Impressions 03/07/2025 3:53 PM CDT IMPRESSION: Successful ultrasound-guided paracentesis with removal of 5 liters of fluid. Narrative 03/07/2025 3:53 PM CDT EXAM DESCRIPTION: US GUIDANCE AND PARACENTESIS HISTORY: Ascites Ultrasound-guided paracentesis is requested. COMPARISON: None available TECHNIQUE/FINDINGS: The procedure and risks were discussed with the patient, and verbal and written informed consent was obtained. Time-out was performed. The skin was prepped and draped in usual sterile fashion. Local anesthesia was used with 1% lidocaine. Under sonographic guidance, a 5-Iranian One Step Centesis catheter was used to drain 5 liters of fluid from the left lower quadrant . Needle placement was documented with sonographic images. The catheter was then removed. Small amount of remaining ascitic fluid. Hemostasis was achieved. The area was dressed with a bandage. The patient tolerated the procedure. There were no immediate complications. Estimated blood loss: <5 ml THIS IS AN ELECTRONICALLY VERIFIED FINAL REPORT 03/07/2025 3:51 PM - Electronically signed by Dom Calvillo M.D. JR: JR Report ID: [id number] Reading Location: [id number] Procedure Note Dom Calvillo MD - 03/07/2025 EXAM DESCRIPTION: US GUIDANCE AND PARACENTESIS HISTORY: Ascites Ultrasound-guided paracentesis is requested. COMPARISON: None available TECHNIQUE/FINDINGS: The procedure and risks were discussed with the patient, and verbal and written informed consent was obtained. Time-out was performed. The skin was prepped and draped in usual sterile fashion. Local anesthesia was used with 1% lidocaine. Under sonographic guidance, a 5-Iranian One Step Centesis catheter was used to drain 5 liters of fluid from the left lower quadrant . Needle placement was documented with sonographic images. The catheter was then removed. Small amount of remaining ascitic fluid. Hemostasis was achieved. The area was dressed with a bandage. The patient tolerated the procedure. There were no immediate complications. Estimated blood loss: <5 ml THIS IS AN ELECTRONICALLY VERIFIED FINAL REPORT 03/07/2025 3:51 PM - Electronically signed by Dom Calvillo M.D. JR: Report ID: [id number] Reading Location: [id number] IMPRESSION: Successful ultrasound-guided paracentesis with removal of 5 liters of fluid. Dameon Green MD [facility] US ORDERABLES Final Result from Last 3 Months Insurance MEDICARE C [employer] Care Teams Children'S Tutor Relationship Specialty Start Date End Date Josue Palomares MD [address] [place], [place] [id number] PCP - General Family Medicine 03/07/25
--- OUTSIDE RECORDS SUMMARY | 2025-03-14 11:26 | XMS_ITS ---
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 Name Role Phone Unavailable Primary Care Provider Unavailabl e Transplant Episode Liver, Kidney Candidate [facility] ([place], [place]) - [facility] Evaluation began on 02/09/2025 Marked as Active on 02/09/2025 Liver, Kidney CoordinatorJayda Jesus RN Phone: N/A Fax: N/A Email: N/A Scores Score Value Updated Expires Exceptions/[place] sons CPRA Not available EPTS (Calc) 61 03/14/2025 UNOS MELD 6 MELD (Calc) 28 02/11/2025 [place] Organ Diagnosis Organ 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
--- OUTSIDE RECORDS SUMMARY | 2025-03-14 11:26 | XMS_ITS | Clinical Summary ---
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 90 tablet 5 Active folic acid (FOLVITE) 1 MG tablet Take 1 tablet (1 mg total) by mouth daily. 30 tablet 5 Active pantoprazole EC (PROTONIX) 20 MG tablet Take 1 tablet (20 mg total) by mouth every morning before breakfast. 30 tablet 5 Active vitamin B-1 (THIAMINE) 100 MG tablet Take 1 tablet (100 mg total) by mouth daily. 30 tablet 5 Active spironolactone (ALDACTONE) 25 MG tablet Take 1 tablet (25 mg total) by mouth daily. Hold if SBP <102 30 tablet 5 Active acetaminophen (TYLENOL) 500 MG tablet Take 1 tablet (500 mg total) by mouth every 6 (six) hours as needed for Pain or Fever. Active silver sulfADIAZINE (SILVADENE) 1 % cream Apply topically nightly at bedtime. Apply to right buttocks Active metoprolol succinate ER (TOPROL-XL) 25 MG 24 hr tablet Take 0.5 tablets (12.5 mg total) by mouth daily for 30 days. Hold if SBP <102 15 tablet 5 02/19/20 25 Active Problems Problem Noted Date Diagnosed Date Decompensation of cirrhosis of liver (CMS/HCC HH S/HCC) 01/27/2025 Acute CHF (CMS/HCC HHS/HCC) 01/03/2025 Cirrhosis of liver with asci kym, unspecified hepatic cirrhosis type (CMS/HCC HHS/HCC) 01/03/2025 Alcohol use disorder 01/03/2025 Acute deep vein thrombosis ( DVT) of distal vein of lower extremity, unspecified laterality (CMS/HCC HHS/HCC) 01/03/2025 Atrial fibrillation with RVR (CMS/HCC HHS/HCC) 0 01/03/2025 Anemia, unspecified type 01/03/2025 Fecal occult blood test positive 01/03/2025 Encounters Date Type Department Care Team Description 01/26/2025 4:02 PM CDT - 01/29/2025 9:42 PM CDT Hospital Encounter [facility] [place] [address] Jarrett Alberts MD Heppermann, Beth, MD McHale, Sara A, MD D'Souza, Dominique C, MD Abdominal Distention Discharge Disposition: Transfer to [facility] 01/26/2025 Travel 01/12/2025 11:57 AM CDT Anesthesia Event [facility] [address] Gautam Corral MD 01/12/2025 11:15 AM CDT - 01/12/2025 11:45 AM CDT Surgery [facility] [address] Dannie Sun MD EGD 01/11/2025 11:45 AM CDT Anesthesia Event [facility] [address] Migel Jhaveri MD 01/05/2025 8:00 AM IRONMOLDER Anesthesia Event [facility] [address] Migel Jhaveri MD 01/03/2025 6:58 AM IRONMOLDER - 01/18/2025 5:27 PM CDT Hospital Encounter [facility] [place] [address] Jaylen Artis MD Conti, Jm Apple, Anastasia Gonzalez, Lev Menendez MD McHale, MD Jose Armando Plascencia, MD Azael Rizo Stephanie L, DO McGowen, Payton K, MD Cough Discharge Disposition: Snf Facility 01/03/2025 Travel from Last 3 Months Social History Tobacco Use Types Packs/Day Years Used Date Smoking Tobacco: Never Smokeless Tobacco: Never Tobacco Cessation:Counseling Given: Not Answered Alcohol Use Standard Drinks/Week Comments Not Currently 0 (1 standard drink = 0.6 oz pur e alcohol) [facility] Utilities Answer Date Recorded In the past 12 months has [facility] [employer], gas, oil, or water [employer] threatened to shut off services in your home? No 01/27/2025 Humiliation, Afraid, Rape, and Kick questionnair e Answer Date Recorded Within the last year, have y ou been afraid of your partner or ex-partner? No 01/27/2025 Within the last year, have y ou been humiliated or emotionally abused in other ways by your partner or ex-partner? No Within the last year, have y ou been kicked, hit, slapped, or otherwise physically hurt by your partner or ex-partner? No 01/27/2025 Within the last year, have y ou been raped or forced to have any kind of sexual activity by your partner or ex-partner? No 01/27/2025 Overall Financial Resource Strain (CARDIA) Answe r Date Recorded How hard is it for you to pa y for the very basics like food, housing, medical care, and heating? Not hard at all 01/27/2025 Hunger Vital Sign Answer Date Recorded Within the past 12 months, y ou worried that your food would run out before you got the money to buy more. Never true 01/28/20 25 Within the past 12 months, t he food you bought just didn't last and you didn't have money to get more. Never true 01/27/2025 PRAPARE - Transportation Answer Date Re corded In the past 12 months, has l ack of transportation kept you from medical appointments or from getting medications? No 01/02 In the past 12 months, has l ack of transportation kept you from meetings, work, or from getting things needed for daily living? No 01/27/2025 Housing Stability Vital Sign Answer Chi e Recorded In the last 12 months, was t here a time when you were not able to pay the mortgage or rent on time? No 01/27/2025 In the past 12 months, how m any times have you moved where you were living? 0 01/27/2025 At any time in the past 12 m [facility], were you homeless or living in a longterm (including now)? No 01/27/2025 Comments No Sex and Gender Information Value Date Recorded Sex Assigned at Female 01/03/2025 7:38 AM IRONMOLDER Legal Sex Female 8:32 PM CDT Gender Identity Not on file Sexual Orientation Not on file Last Filed Vital Signs Vital Sign Reading Time Taken Comments Blood Pressure 118/61 01/29/2025 8:00 PM CDT Pulse 71 01/29/2025 8:00 PM CDT Temperature 36.8 C (98.2 F) 01/29/2025 8:00 PM CDT Respiratory Rate 22 01/29/2025 8:00 PM CDT Oxygen Saturation 98% 01/29/2025 8:00 PM CDT Inhaled Oxygen Concentration - - Weight 77.4 kg (170 lb 10.2 oz) 01/29/2025 5:00 AM CDT Height 165.1 cm (5' 5 ) 01/26/2025 3:55 PM CDT Body Mass Index 28.4 01/26/2025 3:55 PM CDT Plan of Treatment Health Maintenance Due Date Last Done Comments Pneumococcal Vaccine: 50+ Years (1 of 2 - PCV) 1971 Mammogram Screening 1992 Zoster Vaccines (1 of 2) 2002 RSV Immunization or 60+ Years (1 - Risk 60-74 years 1-dose series) 2012 Annual Medicare Wellness Visit 2017 Dexa Scan (General) 2017 DTaP, Tdap and Td Vaccines (2 - Td or Tdap) 02/20/2023 02/20/2013 COVID-19 Vaccine ( season) 2024 10/07/2022, 03/09/2022, 08/21/2021, Additional history exists Colorectal Cancer Screening FIT/FOBT (1 Year) 01/04/2026 01/04/2025 Hepatitis C Completed 01/04/2025 Meningococcal B Vaccine Aged Out No l onger eligible based on patient's age to complete this topic Meningococcal Vaccine Aged Out No markos radames eligible based on patient's age to complete this topic RSV Immunizations Under 20 Months Aged Out No longer eligible based on patient's age to complete this topic Goals Goal Patient Goal Type Associated Problems Recent Progress Patient-Stated? 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 in care transitions and discharge planning Lifestyle No Aliza Hawley RN Procedures Procedure Name Priority Date/Time Associated Diagnosis Comments COMPREHENSIVE METABOLIC PANEL Routine 01/29/2025 4:40 AM CDT CBC W/DIFF AUTOMATED Routine 01/29/2025 4:40 AM CDT VITAMIN B-12 Routine 01/28/2025 12:30 PM CDT US ABD LIMITED Today 01/28/2025 9:22 AM CDT MAGNESIUM Routine 01/28/2025 4:20 AM CDT COMPREHENSIVE METABOLIC PANEL Routine 01/28/2025 4:20 AM CDT CBC W/DIFF AUTOMATED Routine 01/28/2025 4:20 AM CDT MRSA SCREENING Routine 01/27/2025 6:02 PM CDT URINE BACTERIA CULTURE STAT 6:02 PM CDT US GD PARACENT W IMAGING STAT 025 12:37 PM CDT HC BODY FLUID CULTURE Routine 01/27/2025 11:55 AM CDT CELL COUNT W/ DIFF BODY FLUID STAT 01/27/2025 11:55 AM CDT CBC W/DIFF AUTOMATED STAT 01/27/2025 9:27 AM CDT COMPREHENSIVE METABOLIC PANEL STAT 01/27/2025 9:27 AM CDT LACTIC ACID W REFLEX (SEPSIS) TIMED 01/26/2025 9:39 PM CDT LACTIC ACID W REFLEX (SEPSIS) TIMED 01/26/2025 7:39 PM CDT HC URINALYSIS AUTO W/O MICRO STAT 01/26/2025 7:[address] ABD+PEL WO CON STAT 01/26/2025 5:5 0 PM CDT CULTURE, BLOOD, PCR PANEL Routine 2024 5:01 PM CDT CULTURE, BACTERIA, BLOOD Routine 025 5:01 PM CDT AMMONIA STAT 01/26/2025 5:00 PM CDT MAGNESIUM STAT 01/26/2025 4:34 PM CDT LACTIC ACID W REFLEX (SEPSIS) STAT 01/26/2025 4:34 PM CDT LIPASE STAT 01/26/2025 4:34 PM CDT COMPREHENSIVE METABOLIC PANEL STAT 01/26/2025 4:34 PM CDT PROTHROMBIN TIME, VENOUS STAT 025 4:34 PM CDT CBC W/DIFF AUTOMATED STAT 01/26/2025 4:34 PM CDT XR CHEST PORTABLE STAT 01/26/2025 4:2 7 PM CDT CULTURE, BACTERIA, BLOOD STAT 025 4:22 PM CDT CORONAVIRUS (COVID 19) Routine 2:28 PM CDT IR ULTRASOUND GD PARACENT Today 2024 12:42 PM CDT PROTHROMBIN TIME, VENOUS Routine 025 10:40 AM CDT COMPREHENSIVE METABOLIC PANEL Routine 01/18/2025 6:13 AM CDT CBC W/DIFF AUTOMATED Routine 01/18/2025 6:13 AM CDT COMPREHENSIVE METABOLIC PANEL Routine 01/17/2025 9:36 AM CDT CBC W/DIFF AUTOMATED Routine 01/17/2025 9:36 AM CDT ECG 12-LEAD Routine 01/16/2025 4:25 PM CDT COMPREHENSIVE METABOLIC PANEL Routine 01/16/2025 5:00 AM CDT CBC W/DIFF AUTOMATED Routine 01/16/2025 5:00 AM CDT COMPREHENSIVE METABOLIC PANEL Routine 01/15/2025 5:40 AM CDT CBC W/DIFF AUTOMATED Routine 01/15/2025 5:40 AM CDT COMPREHENSIVE METABOLIC PANEL Routine 01/14/2025 5:06 AM CDT CBC W/DIFF AUTOMATED Routine 01/14/2025 5:06 AM CDT PHOSPHORUS, INORGANIC PHOSPHATE Routine 01/14/2025 5:06 AM CDT MAGNESIUM Routine 01/14/2025 5:06 AM CDT PHOSPHORUS, INORGANIC PHOSPHATE Routine 01/13/2025 6:00 AM CDT MAGNESIUM Routine 01/13/2025 6:00 AM CDT COMPREHENSIVE METABOLIC PANEL Routine 01/13/2025 6:00 AM CDT CBC W/DIFF AUTOMATED Routine 01/13/2025 6:00 AM CDT EGD 01/12/2025 11:54 AM CDT Atrial fibrillation with RVR (CMS/HCC HHS/HCC) Anemia Fecal occult blood test positive TYPE & SCREEN STAT 01/12/2025 9:42 AM CDT PHOSPHORUS, INORGANIC PHOSPHATE Routine 01/12/2025 5:15 AM CDT MAGNESIUM Routine 01/12/2025 5:15 AM CDT COMPREHENSIVE METABOLIC PANEL Routine 01/12/2025 5:15 AM CDT CBC W/DIFF AUTOMATED Routine 01/12/2025 5:15 AM CDT PHOSPHORUS, INORGANIC PHOSPHATE STAT 01/11/2025 5:41 PM CDT PROTHROMBIN TIME, VENOUS Routine 025 5:12 AM CDT PARTIAL THROMBOPLASTIN TIME,PTT Routine 01/11/2025 5:12 AM CDT AMMONIA Routine 01/11/2025 5:12 AM CDT PHOSPHORUS, INORGANIC PHOSPHATE Routine 01/11/2025 5:12 AM CDT COMPREHENSIVE METABOLIC PANEL Routine 01/11/2025 5:12 AM CDT CBC W/DIFF AUTOMATED Routine 01/11/2025 5:12 AM CDT PROTHROMBIN TIME, VENOUS Routine 025 4:30 AM CDT COMPREHENSIVE METABOLIC PANEL Routine 01/10/2025 4:30 AM CDT CBC W/DIFF AUTOMATED Routine 01/10/2025 4:30 AM CDT PROTHROMBIN TIME, VENOUS Routine 025 4:05 AM CDT COMPREHENSIVE METABOLIC PANEL Routine 01/09/2025 4:05 AM CDT CBC W/DIFF AUTOMATED Routine 01/09/2025 4:05 AM CDT PROTHROMBIN TIME, VENOUS Routine 025 4:32 AM IRONMOLDER COMPREHENSIVE METABOLIC PANEL Routine 01/08/2025 4:32 AM IRONMOLDER CBC W/DIFF AUTOMATED Routine 01/08/2025 4:32 AM IRONMOLDER CBC W/DIFF AUTOMATED Routine 01/07/2025 9:46 PM IRONMOLDER MAGNESIUM Routine 01/07/2025 9:46 PM IRONMOLDER BASIC METABOLIC PANEL Routine 01/07/2025 9:46 PM IRONMOLDER ECG 12-LEAD STAT 01/07/2025 8:51 PM IRONMOLDER MAGNESIUM Routine 01/07/2025 3:45 AM IRONMOLDER PROTHROMBIN TIME, VENOUS Routine 025 3:45 AM IRONMOLDER COMPREHENSIVE METABOLIC PANEL Routine 01/07/2025 3:45 AM IRONMOLDER CBC W/DIFF AUTOMATED Routine 01/07/2025 3:45 AM IRONMOLDER HEMOGLOBIN AND HEMATOCRIT STAT 2024 12:01 AM IRONMOLDER LIPOPROTEIN, HDL CHOL, DIRECT Routine 01/06/2025 9:05 PM IRONMOLDER MAGNESIUM Routine 01/06/2025 9:05 PM IRONMOLDER COMPREHENSIVE METABOLIC PANEL STAT 01/06/2025 9:05 PM IRONMOLDER ECG 12-LEAD STAT 01/06/2025 5:41 PM IRONMOLDER US ABD LIMITED Today 01/06/2025 11:13 AM IRONMOLDER PARTIAL THROMBOPLASTIN TIME,PTT Routine 01/06/2025 3:59 AM IRONMOLDER MAGNESIUM Routine 01/06/2025 3:59 AM IRONMOLDER COMPREHENSIVE METABOLIC PANEL Routine 01/06/2025 3:59 AM IRONMOLDER CBC W/DIFF AUTOMATED Routine 01/06/2025 3:59 AM IRONMOLDER PROTHROMBIN TIME, VENOUS Routine 3:59 AM IRONMOLDER COMPREHENSIVE METABOLIC PANEL Routine 01/05/2025 5:55 PM IRONMOLDER MRSA SCREENING Routine 01/05/2025 3:18 PM IRONMOLDER HEMOGLOBIN AND HEMATOCRIT TIMED 2024 2:00 PM IRONMOLDER HEMOGLOBIN AND HEMATOCRIT STAT 2024 9:07 AM IRONMOLDER MAGNESIUM Routine 01/05/2025 4:20 AM IRONMOLDER COMPREHENSIVE METABOLIC PANEL Routine 01/05/2025 4:20 AM IRONMOLDER PARTIAL THROMBOPLASTIN TIME,PTT Routine 01/05/2025 4:20 AM IRONMOLDER PROTHROMBIN TIME, VENOUS Routine 025 4:20 AM IRONMOLDER CBC W/DIFF AUTOMATED Routine 01/05/2025 4:20 AM IRONMOLDER HEPARIN, ANTI XA, UFH TIMED 01/05/2025 12:48 AM IRONMOLDER OCCULT BLOOD, FECES STAT 01/04/2025 1 1:57 PM IRONMOLDER HEPARIN, ANTI XA, UFH STAT 01/04/2025 5:41 PM IRONMOLDER IR ULTRASOUND GD PARACENT Today 2024 4:28 PM IRONMOLDER CELL COUNT W/ DIFF BODY FLUID Routine 01/04/2025 3:43 PM IRONMOLDER PROTEIN TOTAL FLUID Routine 01/04/2025 3 :43 PM IRONMOLDER HC BODY FLUID CULTURE Routine 01/04/2025 3:43 PM IRONMOLDER FLOW CYTOMETRY Routine 01/04/2025 3:43 PM IRONMOLDER ANTINUCLEAR ANTIBODY WI RFX Routine 01/04/2025 3:13 PM IRONMOLDER HEPATITIS B CORE ANTIBODY Routine 2024 3:13 PM IRONMOLDER HEPATITIS A ANTIBODY Routine 01/04/2025 3:13 PM IRONMOLDER PHOSPHORUS, INORGANIC PHOSPHATE Routine 01/04/2025 3:13 PM IRONMOLDER MAGNESIUM Routine 01/04/2025 3:13 PM IRONMOLDER HEPATITIS PANEL,ACUTE Routine 01/04/2025 3:13 PM IRONMOLDER HEPARIN, ANTI XA, UFH TIMED 01/04/2025 11:58 AM IRONMOLDER HEPARIN, ANTI XA, UFH TIMED 01/04/2025 4:16 AM IRONMOLDER COMPREHENSIVE METABOLIC PANEL Routine 01/04/2025 4:16 AM IRONMOLDER PROTHROMBIN TIME, VENOUS Routine 025 4:16 AM IRONMOLDER CBC W/DIFF AUTOMATED Routine 01/04/2025 4:16 AM IRONMOLDER URINE BACTERIA CULTURE Routine 3:15 AM IRONMOLDER HC URINALYSIS AUTO W/O MICRO STAT 01/04/2025 3:15 AM IRONMOLDER HEPARIN, ANTI XA, UFH TIMED 01/04/2025 2:26 AM IRONMOLDER HEPARIN, ANTI XA, UFH STAT 01/04/2025 12:34 AM IRONMOLDER CYTOLOGY GENERIC Routine 01/04/2025 12:0 0 AM IRONMOLDER USE ECHOCARDIOGRAM Today 01/03/2025 5: 20 PM IRONMOLDER AMMONIA Routine 01/03/2025 3:58 PM IRONMOLDER USV PETEY DUPLEX LOW EXT JAVI STAT 01/03 3:[address] ABD+PEL WO CON STAT 01/03/2025 3:0 7 PM IRONMOLDER NM LUNG SCAN VENT+PERF STAT 2:27 PM IRONMOLDER PROCALCITONIN (PCT) Routine 01/03/2025 1 1:00 AM IRONMOLDER CK (CPK) Routine 01/03/2025 11:00 AM IRONMOLDER PHOSPHORUS, INORGANIC PHOSPHATE Routine 01/03/2025 11:00 AM IRONMOLDER TROPONIN, QUANT STAT 01/03/2025 11:00 AM IRONMOLDER PRO-BRAIN NATRIURETIC PEPTIDE STAT 01/03/2025 8:00 AM IRONMOLDER COMPREHENSIVE METABOLIC PANEL STAT 01/03/2025 8:00 AM IRONMOLDER TROPONIN, QUANT STAT 01/03/2025 8:00 AM IRONMOLDER PARTIAL THROMBOPLASTIN TIME,PTT STAT 01/03/2025 8:00 AM IRONMOLDER PROTHROMBIN TIME, VENOUS STAT 8:00 AM IRONMOLDER CBC W/DIFF AUTOMATED STAT 01/03/2025 8:00 AM IRONMOLDER FERRITIN Routine 01/03/2025 7:55 AM IRONMOLDER IRON SAT PANEL (IRON,IBC,%SAT) Routine 01/03/2025 7:55 AM IRONMOLDER FOLIC ACID SERUM Routine 01/03/2025 7:55 AM IRONMOLDER VITAMIN B-12 Routine 01/03/2025 7:55 AM IRONMOLDER THYROID STIM HORMONE TSH Routine 025 7:55 AM IRONMOLDER LIPID PANEL Routine 01/03/2025 7:55 AM IRONMOLDER GGT, GAMMA GLUTAMYLTRANSFERASE Routine 01/03/2025 7:55 AM IRONMOLDER LIPASE Routine 01/03/2025 7:55 AM IRONMOLDER HEPATIC FUNCTION PANEL Routine 7:55 AM IRONMOLDER MAGNESIUM Routine 01/03/2025 7:55 AM IRONMOLDER ECG 12-LEAD Routine 01/03/2025 7:54 AM IRONMOLDER XR CHEST PA+LAT STAT 01/03/2025 7:22 AM IRONMOLDER from Last 3 Months Results * (ABNORMAL) COMPREHENSIVE METABOLIC PANEL (01/29/2025 4:40 AM CDT) Only the most recent of22 resultswithin the time period is included. [facility] Signature GLUCOSE 84 70 - 99 MG/DL 01/29/2025 5:10 AM CDT [facility] BUN 32(H) 7 - 18 MG/DL 01/29/2025 5:10 AM CDT [facility] CREATININE S/P/B 2.24(H) 0.55 - 1.02 MG/DL 01/29/2025 5:10 AM CDT [facility] SODIUM S/P/B 136 136 - 145 MMOL/L 01/29/2025 5:10 AM CDT [facility] POTASSIUM S/P/B 3.4(L) 3.5 - 5.1 MMOL/L 01/29/2025 5:10 AM CDT [facility] CHLORIDE S/P/B 107 97 - 115 MMOL/L 01/29/2025 5:10 AM CDT [facility] CO2 19.9(L) 21 - 32 MMOL/L 01/29/2025 5:10 AM CDT [facility] CALCIUM S/P/B 8.0(L) 8.5 - 10.1 MG/DL 01/29/2025 5:10 AM CDT [facility] BILIRUBIN TOTAL S/P/B 4.6(H) 0.2 - 1.2 MG/DL 01/29/2025 5:10 AM T [facility] Comment: THIS ASSAY IS NOT RECOMMENDED FOR PATIENTS UNDERGOING TREATMENT WITH ELTROMBOPAG DUE TO THE POTENTIAL FOR FALSELY ELEVATED RESULTS. TOTAL PROTEIN S/P/B 4.8(L) 6.4 - 8.2 G/DL 01/29/2025 5:10 AM CDT [facility] ALBUMIN S/P/B 2.6(L) 3.4 - 5.0 G/DL 01/29/2025 5:10 AM CDT [facility] AST 35 15 - 37 U/L 01/29/2025 5:10 AM CDT [facility] ALT 15 14 - 55 U/L 01/29/2025 5:10 AM CDT [facility] ALKALINE PHOSPHATASE S/P/B 53 50 - 136 U/L 01/29/2025 5:10 AM CDT [facility] ANION GAP 9.1 2 - 10 MMOL/L 01/29/2025 5:10 AM CDT [facility] BUN CREATININE RATIO 14.3 6 - 26 01/29/2025 5:10 AM CDT [facility] A/G RATIO 1.2 1.0 - 2.0 RATIO 01/29/2025 5:10 AM CDT [facility] GFR ESTIMATE 23(L) >90 ML/MIN/1.7 3 M2 01/29/2025 5:10 AM CDT [facility] Comment: NOTE: eGFR is not calculated for patients <18 years of age or gender unknown. This is an estimated GFR calculation using the new CKD EPI creatinine equation without race and so does not require a correction factor for race. This estimated GFR should not be used for calculating drug doses. 01/29/2025 4:40 AM CDT us Mariya Kincaid NP LABORATORY Final Result [facility] [address] [place] [address], [place] [phone] * (ABNORMAL) CBC W/DIFF AUTOMATED (01/29/2025 4:40 AM CDT) Only the most recent of21 resultswithin the time period is included. WBC 9.09 4.5 - 11.0 x10'3/uL 01/29/2025 5:06 AM CDT [facility] RBC 2.10(L) 4.20 - 5.40 x10'6/uL 01/29/2025 5:06 AM CDT [facility] HGB 7.0(L) 12.0 - 16.0 G/DL 01/29/2025 5:06 AM T [facility] HCT 20.7(L) 38.0 - 48.0 % 01/29/2025 5:06 AM T [facility] MCV 98.6 81.0 - 99.0 FL 01/29/2025 5:06 AM CDT [facility] MCH 33.3(H) 27.0 - 31.0 PG 01/29/2025 5:06 AM CDT [facility] MCHC 33.8 32.0 - 36.0 G/DL 01/29/2025 5:06 AM T [facility] RDW 14.7(H) 11.5 - 14.5 % 01/29/2025 5:06 AM CDT [facility] PLT 183 130 - 400 x10'3/uL 01/29/2025 5:06 AM T [facility] MPV 9.4 9.3 - 12.2 FL 01/29/2025 5:06 AM T [facility] DIFFERENTIAL TYPE AUTOMATED DIFFERENTIAL 01/29/2025 5:06 AM T [facility] NEUTROPHILS % 72.7 % 01/29/2025 5:06 AM CDT [facility] LYMPHOCYTES % 16.0 % 01/29/2025 5:06 AM T [facility] MONOCYTES % 7.4 % 01/29/2025 5:06 AM CDT [facility] EOSINOPHILS 2.5 % 01/29/2025 5:06 AM CDT [facility] BASOPHILS 0.8 % 01/29/2025 5:06 AM CDT [facility] IMMATURE GRANS % 0.6 % 01/30/20 5:06 AM CDT [facility] ABS. NEUTROPHILS 6.62 1.80 - 7.70 x10'3/uL 01/29/2025 5:06 AM CDT [facility] ABS. LYMPHOCYTES 1.45 1.00 - 4.80 x10'3/uL 01/29/2025 5:06 AM CDT [facility] ABS. MONOCYTES 0.67 0.24 - 0.86 x10'3/uL 01/29/2025 5:06 AM CDT [facility] ABS. EOSINOPHILS 0.23 0.04 - 0.36 x10'3/uL 01/29/2025 5:06 AM CDT [facility] ABS. BASOPHILS 0.07 0.01 - 0.08 x10'3/uL 01/29/2025 5:06 AM CDT [facility] ABS. IMMATURE GRANULOCYTES 0.05 0.00 - 0.49 x10'3/uL 01/29/2025 5:06 AM CDT [facility] 01/29/2025 4:40 AM CDT us Mariya Kincaid NP LABORATORY Final Result [facility] [address] [place] [address], * (ABNORMAL) VITAMIN B-12 (01/28/2025 12:30 PM CDT) Only the most recent of2 resultswithin the time period is included. VITAMIN B12 S/P/B 1,353(H) 254 - 1,320 PG/ML 01/28/2025 1:13 PM CDT [facility] 01/28/2025 12:3 0 PM CDT us Fuentes Acuna MD LABORATORY F inal Result [facility] [address] [place] [address], [place] [phone] * US ABD LIMITED (01/28/2025 9:22 AM CDT) Only the most recent of2 resultswithin the time period is included. Anatomical Region Laterality Modality Abdomen Ultrasound 01/28/2025 9:43 AM CDT Impressions 01/28/2025 9:45 AM CDT =====IMPRESSION:===== 1. Nodular liver contour compatible with chronic liver parenchymal disease. Hepatic steatosis. Recannulized umbilical vein. Normal directional flow within the portal vein which is patent. 2. Small volume ascites. Small right pleural effusion. 3. Gallbladder sludge. Ordered By: MARIYA KINCAID Interpreted By: Jeremías Palacios MD, 01/28/2025 9:43 AM Narrative 01/28/2025 9:45 AM CDT [facility] [address] [place], [place] [address] EXAMINATION: Limited abdomen ultrasound: RUQ EXAM DATE/TIME: 01/28/2025 8:39 AM REASON FOR EXAM: abdominal distention, eval for clot per GI recs COMPARISON: CT abdomen pelvis 01/26/2025. TECHNIQUE: An ultrasound examination of the RUQ was performed to assess grayscale appearance, color-flow characteristics and spectral doppler analysis. FINDINGS: Liver: Nodular liver contour compatible with chronic liver parenchymal disease. Increased echogenicity. No focal mass identified. Liver measures 13.3cm. in length. Recannulized umbilical vein. Pancreas: Limited evaluation on the images provided and reviewed likely secondary to overlying bowel gas Portal vein: Spectral analysis reveals normal hepatopedal flow. Gallbladder: Gallbladder sludge. No wall thickening or abnormal distention. Negative sonographic Lorenz's sign.Gallbladder wall thickness measures 0.3cm. Common bile duct Suboptimally visualized due to overlying bowel gas. Common bile duct measures 0.5cm in diameter Right kidney Measures: 9.5 cm X 4.2 cm X 4.2 cm. Normal echogenicity. Normal cortical perfusion. No masses, cysts, stones or hydronephrosis. Other findings: Small volume ascites and right pleural effusion. The IVC is unremarkable. Procedure Note Jeremías Palacios MD - 01/28/[address] [address] EXAMINATION: Limited abdomen ultrasound: RUQ EXAM DATE/TIME: 01/28/2025 8:39 AM REASON FOR EXAM: abdominal distention, eval for clot per GI recs COMPARISON: CT abdomen pelvis 01/26/2025. TECHNIQUE: An ultrasound examination of the RUQ was performed to assessgrayscale appearance, color-flow characteristics and spectral doppleranalysis. FINDINGS: Liver: Nodular liver contour compatible with chronic liver parenchymaldisease. Increased echogenicity. No focal mass identified. Liver gqjcegol98.3cm. in length. Recannulized umbilical vein. Pancreas: Limited evaluation on the images provided and reviewed likelysecondary to overlying bowel gas Portal vein: Spectral analysis reveals normal hepatopedal flow. Gallbladder: Gallbladder sludge. No wall thickening or abnormaldistention. Negative sonographic Lorenz's sign.Gallbladder wall thicknessmeasures 0.3cm. Common bile duct Suboptimally visualized due to overlying bowel gas.Common bile duct measures 0.5cm in diameter Right kidney Measures: 9.5 cm X 4.2 cm X 4.2 cm. Normal echogenicity.Normal cortical perfusion. No masses, cysts, stones or hydronephrosis. Other findings: Small volume ascites and right pleural effusion. The IVCis unremarkable. =====IMPRESSION:===== 1. Nodular liver contour compatible with chronic liver parenchymaldisease. Hepatic steatosis. Recannulized umbilical vein. Normaldirectional flow within the portal vein which is patent. 2. Small volume ascites. Small right pleural effusion. 3. Gallbladder sludge. Ordered By: MARIYA KINCAID Interpreted By: Jeremías Palacios MD, 01/28/2025 9:43 AM us Mariya Kincaid [facility] Final Result * MAGNESIUM (01/28/2025 4:20 AM CDT) Only the most recent of12 resultswithin the time period is included. MAGNESIUM 1.8 1.8 - 2.4 MG/DL 01/28/2025 5:19 AM CDT [facility] 01/28/2025 4:20 AM CDT Mariya Kincaid [facility] Final Result [facility] [address] [place] [address], * MRSA SCREENING (01/27/2025 6:02 PM CDT) Only the most recent of2 resultswithin the time period is included. SPEC DESCRIPTION NASAL 01/27/2025 6:03 PM CDT [facility] SPECIAL REQUESTS NO SPECIAL REQUEST 01/27/2025 6:03 PM CDT [facility] CULTURE RESULT NO METHICILLIN RESISTANT STAPHYLOCOCCUS AUREUS ISOLATED 01/28/2025 12:45 PM CDT [facility] SPECIMEN FROM INTERNAL NOSE / Unknown 01/27/2025 6:02 PM CDT 01/27/2025 6:14 PM CDT us Keerthi Crespo MD MICROBIOLOGY - GENERAL ORDERABL ES Final Result Performing Organization Address City/[facility]/ZIP Co de Phone Number [facility] [address] [place] [address], [place] [phone] * (ABNORMAL) CULTURE URINE (01/27/2025 6:02 PM CDT) Only the most recent of2 resultswithin the time period is included. SPEC DESCRIPTION URINE CLEAN CATCH 01/27/2025 6:12 PM CDT [facility] SPECIAL REQUESTS NO SPECIAL REQUEST 01/27/2025 6:12 PM CDT [facility] CULTURE RESULT 50,000-100,000 COL/ML SINTIA TROPICALIS SUSCEPTIBILTY NOT ROUTINELY PERFORMED. SAVING ISOLATE FOR 5 DAYS. CONTACT MICROBIOLOGY DEPARTMENT IF FURTHER WORKUP IS INDICATED. (A) 01/30/2025 7:40 AM CDT [facility] URINE SPECIMEN OBTAINED BY CLEAN CATCH PROCEDURE / Unknown 01/27/2025 6:02 PM CDT 01/27/2025 6:13 PM CDT us Erin Lopes MD MICROBIOLOGY - GENERAL ORDERA BLES Final Result [facility] [address] [place] [address], [place] [phone] * US GD PARACENT W IMAGING (01/27/2025 12:37 PM CDT) Anatomical Region Laterality Modality Ultrasound 01/27/2025 12:3 5 PM CDT Impressions 01/27/2025 12:47 PM CDT Impression: Successful ultrasound-guided paracentesis. Ordered By: JARRETT ALBERTS Interpreted By: Jeremías Palacios MD, 01/27/2025 12:35 PM Narrative 01/27/2025 12:47 PM [address] [address] Procedure: Ultrasound guided paracentesis Pre-procedure diagnosis: Recurrent ascites. Post-procedure diagnosis: Same. Comparison(s): Ultrasound paracentesis 01/18/2025 Medications: Lidocaine 1% subdermal Complications: None. EBL: Minimal. Consent: The risks, benefits, and alternatives to the procedure were explained to the patient including, but not limited to, bleeding, infection, injury to adjacent organs and structures, and pain, and the patient gives informed written consent for the procedure. Time-out: Prior to the start of the procedure, a timeout was performed in which the patient's identity, site of procedure, and type of procedure was verified. Technique and Findings: The patient was placed in a supine position and a limited ultrasound of the four quadrants of the abdomen was performed, showing a large amount of ascites. The fluid in the right lower quadrant was targeted. The overlying skin was prepped and draped in sterile fashion. Local anesthesia was obtained with 2% lidocaine. A 5 Bel[place]ian Yueh needle was advanced into the fluid using ultrasound guidance. A total of 9.08 L of straw-colored ascitic fluid was removed. Albumin to be administered per protocol. No immediate complication. Samples of the fluid were sent for laboratory analysis. Procedure Note Jeremías Palacios MD - 01/27/[address] [address] Procedure: Ultrasound guided paracentesis Pre-procedure diagnosis: Recurrent ascites. Post-procedure diagnosis: Same. Comparison(s): Ultrasound paracentesis 01/18/2025 Medications: Lidocaine 1% subdermal Complications: None. EBL: Minimal. Consent: The risks, benefits, and alternatives to the procedure wereexplained to the patient including, but not limited to, bleeding,infection, injury to adjacent organs and structures, and pain, and thepatient gives informed written consent for the procedure. Time-out: Prior to the start of the procedure, a timeout was performed inwhich the patient's identity, site of procedure, and type of procedure wasverified. Technique and Findings: The patient was placed in a supine position and a limited ultrasound ofthe four quadrants of the abdomen was performed, showing a large amount ofascites. The fluid in the right lower quadrant was targeted. The overlyingskin was prepped and draped in sterile fashion. Local anesthesia wasobtained with 2% lidocaine. A 5 Belarusian Yueh needle was advanced into the fluid using ultrasoundguidance. A total of 9.08 L of straw-colored ascitic fluid was removed.Albumin to be administered per protocol. No immediate complication.Samples of the fluid were sent for laboratory analysis. Impression: Successful ultrasound-guided paracentesis. Ordered By: JARRETT ALBERTS Interpreted By: Jeremías Palacios MD, 01/27/2025 12:35 PM Jarrett Alberts MD ULTRASOUND Final Result * CULTURE BODY FLUID W/ GRAM STAIN (01/27/2025 11:55 AM CDT) Only the most recent of2 resultswithin the time period is included. SPEC DESCRIPTION ASCITIC FLUID 01/27/2025 12:39 PM CDT [facility] SPECIAL REQUESTS NO SPECIAL REQUEST 01/27/2025 12:39 PM CDT [facility] GRAM STAIN RESULT NO WHITE BLOOD CELLS SEEN 01/27/2025 1:50 PM CDT [facility] GRAM STAIN RESULT RARE RED BLOOD CELLS SEEN 01/27/2025 1:50 PM CDT [facility] GRAM STAIN RESULT NO ORGANISMS SEEN 01/27/2025 1:50 PM CDT [facility] CULTURE RESULT NO GROWTH 5 DAYS 02/01/2025 7:34 AM CDT [facility] ASCITIC FLUID SPECIMEN / Unknown 01/27/2025 11:55 AM CDT 01/27/2025 12:51 PM CDT Mickie Gutierrez MD MICROBIOLOGY - GENERAL ORDER SHIMON Final Result [facility] [address] [place] [address], [place] [phone] * CELL COUNT W/ DIFF BODY FLUID (01/27/2025 11:55 AM CDT) Only the most recent of2 resultswithin the time period is included. SOURCE (FLUID) ASCITIC FLUID 01/27/2025 12:39 PM CDT [facility] VOLUME (FLUID) 2,000.0 mL 01/27/2025 2:28 PM CDT [facility] COLOR (FLUID) YELLOW 01/27/2025 2:28 PM CDT [facility] TURBIDITY CLEAR 01/27/2025 2:28 PM CDT [facility] RBC (FLUID) 1,093 CELLS/UL 01/27/2025 2:28 PM CDT [facility] Comment: The reference range and other method performance specifications have not been established for this assay on body fluids. The test result should be integrated into the clinical context for interpretation and utilized in comparison to blood concentrations of the analyte as appropriate. TOTAL NUCLEATED CELL COUNT 0 CELLS/UL 01/27/2025 2:28 PM CDT [facility] Comment: The reference range and other method performance specifications have not been established for this assay on body fluids. The test result should be integrated into the clinical context for interpretation and utilized in comparison to blood concentrations of the analyte as appropriate. STRUCTURE OF INTRAABDOMINAL REGION / Unknown 01/27/2025 11:55 AM CDT us Jarrett Albrets MD BODY FLUIDS AND STOOLS ORDERABLE S Final Result [facility] [address] [place] [address], [place] [phone] * LACTIC ACID W REFLEX (SEPSIS) (01/26/2025 9:39 PM CDT) Only the most recent of3 resultswithin the time period is included. LACTIC ACID VENOUS 2.0 0.4 - 2.0 MMOL/L 01/27/2025 12:10 AM CDT [facility] 01/26/2025 9:39 PM CDT Jarrett Alberts MD LABORATORY Final Result Performing Organization Address [facility]/ZIP Co de Phone Number [facility] [address] [place] [address], [place] [phone] * (ABNORMAL) URINALYSIS (01/26/2025 7:39 PM CDT) Only the most recent of2 resultswithin the time period is included. [facility] SPECIMEN TYPE URINE CLEAN CATCH 01/26/2025 7:39 PM CDT [facility] COLOR (U) ORANGE 01/26/2025 8:11 PM CDT [facility] TRANSPARENCY EXTREMELY TURBID 01/26/2025 8:11 PM CDT [facility] SPECIFIC GRAVITY (U) 1.019 1.001 - 1.030 01/26/2025 8:11 PM CDT [facility] U PH 5.5 5.0 - 9.0 01/26/2025 8:11 PM CDT [facility] LEUKOCYTES (U) 500(A) NEGATIVE 01/26/2025 8:11 PM CDT [facility] NITRITES NEGATIVE NEGATIVE 01/26/2025 8:11 PM CDT [facility] PROTEIN RANDOM (U) 100(H) <30 MG/DL 01/26/2025 8:11 PM CDT [facility] GLUCOSE (U) NORMAL NORMAL MG/DL 01/26/2025 8:11 PM CDT [facility] KETONES MG/DL (U) NEGATIVE NEGATIVE MG/DL 01/26/2025 8:11 PM CDT [facility] UROBILINOGEN NORMAL NORMAL MG/DL 01/26/2025 8:11 PM CDT [facility] BILIRUBIN (U) NEGATIVE NEGATIVE MG/DL 01/26/2025 8:11 PM CDT [facility] BLOOD (U) 3+(A) NEGATIVE 01/26/2025 8:11 PM CDT [facility] MUCUS FEW /LPF 01/26/2025 8:11 PM CDT [facility] HYALINE CASTS MANY /LPF 01/26/2025 8:11 PM CDT [facility] WBC/HPF >100(H) <6 /HPF 01/26/2025 8:11 PM CDT [facility] WBC CLUMPS PRESENT 01/26/2025 8:11 PM CDT [facility] RBC/HPF >100(H) <6 /HPF 01/26/2025 8:11 PM CDT [facility] BACTERIA (U) RARE(A) NONE /HPF 01/26/2025 8:11 PM CDT [facility] BUDDING YEAST MANY(A) NONE /HPF 01/26/2025 8:11 PM CDT [facility] SQUAMOUS EPITHELIALS RARE /HPF 01/26/2025 8:11 PM CDT [facility] URINE SPECIMEN OBTAINED BY CLEAN CATCH PROCEDURE / Unknown 01/26/2025 7:39 PM CDT Jarrett Alberts MD URINE ORDERABLES Final Result [facility] [address] [place] [address], [place] [phone] * CT ABD+PEL WO CON (01/26/2025 5:50 PM CDT) Only the most recent of2 resultswithin the time period is included. Anatomical Region Laterality Modality Abdomen Computed Tomogra phy 01/26/2025 6:17 PM CDT Impressions 01/26/2025 6:31 PM CDT IMPRESSION: 1. No significant interval change in large volume ascites and widespread anasarca. 2. Cirrhotic morphology of the liver. 3. Mural edema in the ascending and proximal transverse colon favored to be secondary to ascites, though colitis can have this appearance as well. 4. Suggestion of anemia. 5. Interval placement of an infrarenal IVC filter. 6. No significant interval change in partially visualized moderate left pleural effusion and bibasilar atelectasis. 7. Other chronic/nonurgent findings, as above. Referred By: Interpreted By: Lopez Osborn MD, 01/26/2025 6:17 PM Narrative 01/26/2025 6:31 PM CDT [facility] [address] [place], [place] [address] INDICATION: Abdominal distention and pain with sepsis COMPARISON: CT abdomen/pelvis, 03 Jan 2025 TECHNIQUE: CT images of the abdomen and pelvis were obtained. Radiation dose reduction technique utilized. FINDINGS: Evaluation of solid organs is diminished in the absence of IV contrast. Limited visualization of the lower thorax demonstrates no significant interval change in partially visualized moderate left pleural effusion and concomitant compressive atelectasis in the left lower lobe. Atelectasis in the base of the right lower lobe, with mild interval improvement in aeration of the base of the right middle lobe. Severe coronary atherosclerosis. Cardiac blood pool attenuation suggests anemia. Unchanged moderate hiatal hernia with small volume adjacent ascites. Redemonstration of a diminutive liver with cirrhotic morphology. No suspicious hepatic lesion by noncontrast technique. Biliary sludge versus vicarious contrast material excretion in the gallbladder. Atherosclerosis of the abdominal and pelvic vasculature. Interval placement of an infrarenal IVC filter. No retroperitoneal lymphadenopathy. No evidence of bowel obstruction. Colonic diverticulosis. Large volume ascites, similar to prior. Mural edema in the ascending and proximal transverse colon. Normal appearing appendix. No free gas in the abdomen or pelvis. No mesenteric lymphadenopathy. Stomach and duodenum within normal limits. No significant interval change in probable splenic clefts. Noncontrast evaluation of the pancreas is unremarkable. Adrenal glands within normal limits. No hydronephrosis or hydroureter. Urinary bladder decompressed with Flores catheter present. Senescent uterus. Chronic degenerative changes of the hips, pubic symphysis, and sacroiliac joints. Chronic multilevel degenerative changes of the spine. Widespread anasarca, similar to prior. Procedure Note Lopez Osborn MD - 01/26/[address] [address] INDICATION: Abdominal distention and pain with sepsis COMPARISON: CT abdomen/pelvis, 03 Jan 2025 TECHNIQUE: CT images of the abdomen and pelvis were obtained. Radiationdose reduction technique utilized. FINDINGS: Evaluation of solid organs is diminished in the absence of IV contrast. Limited visualization of the lower thorax demonstrates no significantinterval change in partially visualized moderate left pleural effusion andconcomitant compressive atelectasis in the left lower lobe. Atelectasis inthe base of the right lower lobe, with mild interval improvement inaeration of the base of the right middle lobe. Severe coronaryatherosclerosis. Cardiac blood pool attenuation suggests anemia. Unchangedmoderate hiatal hernia with small volume adjacent ascites. Redemonstration of a diminutive liver with cirrhotic morphology. Nosuspicious hepatic lesion by noncontrast technique. Biliary sludge versusvicarious contrast material excretion in the gallbladder. Atherosclerosis of the abdominal and pelvic vasculature. Intervalplacement of an infrarenal IVC filter. No retroperitoneallymphadenopathy. No evidence of bowel obstruction. Colonic diverticulosis. Large volumeascites, similar to prior. Mural edema in the ascending and proximaltransverse colon. Normal appearing appendix. No free gas in the abdomen orpelvis. No mesenteric lymphadenopathy. Stomach and duodenum within normal limits. No significant interval changein probable splenic clefts. Noncontrast evaluation of the pancreas isunremarkable. Adrenal glands within normal limits. No hydronephrosis or hydroureter. Urinary bladder decompressed with Flores catheter present. Senescentuterus. Chronic degenerative changes of the hips, pubic symphysis, and sacroiliacjoints. Chronic multilevel degenerative changes of the spine. Widespread anasarca, similar to prior. IMPRESSION: 1. No significant interval change in large volume ascites and widespreadanasarca. 2. Cirrhotic morphology of the liver. 3. Mural edema in the ascending and proximal transverse colon favored birdie secondary to ascites, though colitis can have this appearance aswell. 4. Suggestion of anemia. 5. Interval placement of an infrarenal IVC filter. 6. No significant interval change in partially visualized moderate leftpleural effusion and bibasilar atelectasis. 7. Other chronic/nonurgent findings, as above. Referred By: Interpreted By: Lopez Osborn MD, 01/26/2025 6:17 PM Jarrett Alberts MD CT Final Result * CULTURE, BLOOD, PCR PANEL (01/26/2025 5:01 PM CDT) ENTEROCOCCUS FAECALIS PCR (BLD) NOT DETECTED NOT DETECTED 01/27/2025 6:48 AM CDT [facility] ENTEROCUCCUS FAECIUM PCR (BLD) NOT DETECTED NOT DETECTED 01/27/2025 6:48 AM CDT [facility] LISTERIA MONOCYTOGENES PCR (BLD) NOT DETECTED NOT DETECTED 01/27/2025 6:48 AM CDT [facility] STAPH SPECIES PCR (BLD) NOT DETECTED NOT DETECTED 01/27/2025 6:48 AM CDT [facility] STAPH AUREUS PCR (BLD) NOT DETECTED NOT DETECTED 01/27/2025 6:48 AM CDT [facility] STAPHYLOCOCCUS EPIDERMIDIS PCR (BLD) NOT DETECTED NOT DETECTED 01/27/2025 6:48 AM CDT [facility] STAPHYLOCOCCUS LUGDUNENSIS PCR (BLD) NOT DETECTED NOT DETECTED 01/27/2025 6:48 AM CDT [facility] STREPTOCOCCUS PCR (BLD) NOT DETECTED NOT DETECTED 01/27/2025 6:48 AM CDT [facility] STREP AGALACTIAE PCR (BLD) NOT DETECTED NOT DETECTED 01/27/2025 6:48 AM CDT [facility] STREP PNEUMONIAE PCR (BLD) NOT DETECTED NOT DETECTED 01/27/2025 6:48 AM CDT [facility] STREP PYOGENES (GRP A) PCR (BLD) NOT DETECTED NOT DETECTED 01/27/2025 6:48 AM CDT [facility] ACINETOBACTER BAUMANII PCR (BLD) NOT DETECTED NOT DETECTED 01/27/2025 6:48 AM CDT [facility] BACTEROIDES FRAGILIS PCR (BLD) NOT DETECTED NOT DETECTED 01/27/2025 6:48 AM CDT [facility] ENTEROBACTERIACEAE PCR (BLD) NOT DETECTED NOT DETECTED 01/27/2025 6:48 AM CDT [facility] ENTEROBACTER CLOACAE COMP PCR (BLD) NOT DETECTED NOT DETECTED 01/27/2025 6:48 AM CDT [facility] ESCHERICHIA COLI PCR (BLD) NOT DETECTED NOT DETECTED 01/27/2025 6:48 AM CDT [facility] KLEBSIELLA AEROGENES PCR (BLD) NOT DETECTED NOT DETECTED 01/27/2025 6:48 AM CDT [facility] KLEBSIELLA OXYTOCA PCR (BLD) NOT DETECTED NOT DETECTED 01/27/2025 6:48 AM CDT [facility] KLEBSIELLA PNEUMONIAE PCR (BLD) NOT DETECTED NOT DETECTED 01/27/2025 6:48 AM CDT [facility] PROTEUS PCR (BLD) NOT DETECTED NOT DETECTED 01/27/2025 6:48 AM CDT [facility] SALMONELLA PCR (BLD) NOT DETECTED NOT DETECTED 01/27/2025 6:48 AM CDT [facility] SERRATIA MARCESCENS PCR (BLD) NOT DETECTED NOT DETECTED 01/27/2025 6:48 AM CDT [facility] H. INFLUENZAE PCR (BLD) NOT DETECTED NOT DETECTED 01/27/2025 6:48 AM CDT [facility] N. MENINGITIDIS PCR (BLD) NOT DETECTED NOT DETECTED 01/27/2025 6:48 AM CDT [facility] PSEUDOMONAS AERUGINOSA PCR (BLD) NOT DETECTED NOT DETECTED 01/27/2025 6:48 AM CDT [facility] STENOTROPHOMONAS MALTOPHILIA PCR (BLD) NOT DETECTED NOT DETECTED 01/27/2025 6:48 AM CDT [facility] SINTIA ALBICANS PCR (BLD) NOT DETECTED NOT DETECTED 01/27/2025 6:48 AM CDT [facility] SINTIA AURIS PCR (BLD) NOT DETECTED NOT DETECTED 01/27/2025 6:48 AM CDT [facility] SINTIA GLABRATA PCR (BLD) NOT DETECTED NOT DETECTED 01/27/2025 6:48 AM CDT [facility] SINTIA KRUSEI PCR (BLD) NOT DETECTED NOT DETECTED 01/27/2025 6:48 AM CDT [facility] SINTIA PARAPSILOSIS PCR (BLD) NOT DETECTED NOT DETECTED 01/27/2025 6:48 AM CDT [facility] SINTIA TROPICALIS PCR (BLD) NOT DETECTED NOT DETECTED 01/27/2025 6:48 AM CDT [facility] CRYPTOCOCCUS NEOFORMANS/GATTII PCR (BLD) NOT DETECTED NOT DETECTED 01/27/2025 6:48 AM CDT [facility] 01/26/2025 5:01 PM CDT Erin Lopes MD MICROBIOLOGY - GENERAL ORDERA BLES Final Result [facility] [address] [place] [address], [place] [phone] * (ABNORMAL) CULTURE, BACTERIA, BLOOD (01/26/2025 5:01 PM CDT) Only the most recent of2 resultswithin the time period is included. SPEC DESCRIPTION BLOOD 01/26/2025 4:10 PM CDT [facility] SPECIAL REQUESTS NO SPECIAL REQUEST 01/26/2025 4:10 PM CDT [facility] GRAM STAIN RESULT GRAM NEGATIVE RODS 01/27/2025 6:39 AM CDT [facility] GRAM STAIN RESULT CALLED TO AND REPEATED BACK BY TAMMIE CIFUENTES RN AT 0638 ON 01/27/25 [place] 01/27/2025 6:39 AM CDT [facility] GRAM STAIN RESULT PCR TESTING PERFORMED ON THIS SAMPLE 01/27/2025 6:39 AM CDT [facility] CULTURE RESULT GRAM NEGATIVE RODS SEEN IN GRAM STAIN IS NONVIABLE FOR IDENTIFICATION OR SUSCEPTIBILITIES. (AA) 01/29/2025 8:30 AM CDT [facility] BLOOD SPECIMEN OBTAINED FOR BLOOD CULTURE / Unknown 01/26/2025 5:01 PM CDT 01/26/2025 5:18 PM CDT Jarrett Alberts MD MICROBIOLOGY - GENERAL ORDERABLE S Final Result Performing Organization Address [facility] Co de Phone Number [facility] [address] [place] [address], [place] [phone] * (ABNORMAL) AMMONIA (01/26/2025 5:00 PM CDT) Only the most recent of3 resultswithin the time period is included. AMMONIA 34(H) 11 - 32 UMOL/L 01/26/2025 5:41 PM CDT [facility] 01/26/2025 5:00 PM CDT us Jarrett Alberts MD LABORATORY Final Result Performing Organization Address [facility] Co de Phone Number [facility] [address] [place] [address], [place] [phone] * (ABNORMAL) PROTIME/INR, VENOUS (01/26/2025 4:34 PM CDT) Only the most recent of11 resultswithin the time period is included. PROTIME 14.6(H) 10.2 - 12.9 SEC 01/26/2025 5:39 PM CDT [facility] INR 1.3 01/26/2025 5:39 PM CDT [facility] Comment: Recommended INR Therapeutic Goals: 2.0-3.0 Routine Therapy 2.5-3.5 Mechanical Prosthetic Valves (High Risk) 01/26/2025 4:34 PM CDT us Jarrett Alberts MD LABORATORY Final Result Performing Organization Address [facility] Co de Phone Number [facility] [address] [place] [address], [place] [phone] * LIPASE (01/26/2025 4:34 PM CDT) Only the most recent of2 resultswithin the time period is included. LIPASE 15 13 - 75 UNITS/L 01/26/2025 5:12 PM CDT [facility] 01/26/2025 4:34 PM CDT Jarrett Alberts MD LABORATORY Final Result [facility] [address] [place] [address], [place] [phone] * XR CHEST PORTABLE (01/26/2025 4:27 PM CDT) Anatomical Region Laterality Modality Chest Radiographic Jyotsna ging 01/26/2025 4:33 PM CDT Impressions 01/26/2025 4:37 PM CDT IMPRESSION: DIMINISHED LUNG VOLUMES WITH RIGHT HEMIDIAPHRAGM ELEVATION. PERSISTENT BIBASILAR ATELECTASIS AND SMALL PLEURAL EFFUSIONS OR PLEURAL THICKENING. MODERATE-SIZED HIATAL HERNIA. Referred By: Interpreted By: Markel Vásquez MD, 01/26/2025 4:33 PM Narrative 01/26/2025 4:[address] [address] EXAM: XR CHEST PORTABLE INDICATION: HYPOTENSION TECHNIQUE: AP upright view of the chest obtained. COMPARISON EXAM: 2 view chest from January 03, 2025. FINDINGS: Lung volumes are diminished with right hemidiaphragmatic elevation. Some mild atelectasis and pleural effusion and/or pleural thickening appears unchanged. Size and pulmonary vascular caliber is within normal limits for technique. Moderate sized hiatal hernia. Procedure Note Markel Vásquez MD - 01/26/[address], [place] [address] EXAM: XR CHEST PORTABLE INDICATION: HYPOTENSION TECHNIQUE: AP upright view of the chest obtained. COMPARISON EXAM: 2 view chest from January 03, 2025. FINDINGS: Lung volumes are diminished with right hemidiaphragmaticelevation. Some mild atelectasis and pleural effusion and/or pleuralthickening appears unchanged. Size and pulmonary vascular caliber iswithin normal limits for technique. Moderate sized hiatal hernia. IMPRESSION: DIMINISHED LUNG VOLUMES WITH RIGHT HEMIDIAPHRAGM ELEVATION.PERSISTENT BIBASILAR ATELECTASIS AND SMALL PLEURAL EFFUSIONS OR PLEURALTHICKENING. MODERATE-SIZED HIATAL HERNIA. Referred By: Interpreted By: Markel Vásquez MD, 01/26/2025 4:33 PM Jarrett Alberts MD GENERAL IMAGING Final Result * CORONAVIRUS (COVID 19) (01/18/2025 2:28 PM CDT) CORONAVIRUS SARS COV 2 RNA NEGATIVE NEGATIVE 01/18/2025 3:38 PM CDT [facility] Comment: NEGATIVE RESULTS DO NOT RULE OUT COVID 19 AND SHOULD NOT BE USED THE SOLE BASIS FOR TREATMENT OR PATIENT MANAGEMENT DECISIONS, INCLUDING INFECTION CONTROL DECISIONS. NEGATIVE RESULTS SHOULD BE CONSIDERED IN THE CONTEXT OF A PATIENT'S RECENT EXPOSURES, HISTORY AND THE PRESENCE OF CLINICAL SIGNS AND SYMPTOMS CONSISTENT WITH COVID 19. THE ID NOW COVID-19 2.0 TEST HAS BEEN AUTHORIZED BY THE FDA UNDER EAU FOR USE BY AUTHORIZED LABORATORIES. PERFORMED BY NUCLEIC ACID AMPLIFICATION FOR MOLECULAR QUALITATIVE DETECTION OF SARS-COV-2. SPECIMEN TYPE NASAL 01/18/2025 2:29 PM CDT [facility] NASAL STRUCTURE / Unknown 01/18/2025 2:28 PM CDT Lev Florez MD MICROBIOLOGY - GENERAL ORDERABL ES Final Result [facility] [address] [place] [address], [place] [phone] * IR ULTRASOUND GD PARACENT (01/18/2025 12:42 PM CDT) Only the most recent of2 resultswithin the time period is included. Anatomical Region Laterality Modality Abdomen Interventional R adiology 01/18/2025 12:0 9 PM CDT Impressions 01/18/2025 1:07 PM CDT =====IMPRESSION:===== 1. Large volume ascites 2. Procedure note for right lower quadrant approach paracentesis performed with ultrasound guidance. 3. Total 8.9 L of fluid removed. 4. Albumin IV placement to follow per protocol. 5. No immediate complication. Ordered By: LEV FLOREZ Interpreted By: Terrence Sheets MD, 01/18/2025 12:09 PM Narrative 01/18/2025 1:07 PM CDT [address] [address] Examination: Ultrasound-guided paracentesis with imaging Exam date/time: 01/18/2025 11:55 PM Reason For Exam: Alcoholic cirrhosis. Repeat therapeutic paracentesis Comparison: Ultrasound abdomen 01/06/2025, paracentesis 01/05/2020 Technique: Informed verbal and written consent was obtained from the patient/patient's medical decision maker caregiver. The details of procedure were discussed, including all applicable risks, benefits and alternatives. Patient expressed understanding and wished to proceed. Initial survey ultrasound performed documenting the presence of large volume ascites. A timeout was performed. A right lower quadrant skin access site was chosen with ultrasound guidance, and prepped and draped. Sterile ultrasound technique, including hand wash with soap and water, was employed for the procedure.1% lidocaine was administered for local anesthesia and the skin and deeper soft tissues down to the peritoneum. A small skin incision was made through which a 6 [place] [employer] one-step catheter was advanced under ultrasound guidance through the abdominal wall into the peritoneal cavity. Fluid was returned. The inner stylet was removed and the catheter attached to tubing attached to serial vacuum containers via a three-way stopcock, allowing withdrawal of clear straw-colored ascites. Once aspiration stopped, the catheter was removed. Compression was applied and hemostasis obtained and a sterile dressing placed. The patient tolerated the procedure well with no immediate complication. Findings: Large volume ascites. There is uneventful removal of 8.9 liters of fluid from the peritoneal cavity with trace amount of nondrainable ascites remaining postprocedure ultrasound. Procedure Note Terrence Sheets MD - 01/18/2025 [facility] [address] [place], [place] [address] Examination: Ultrasound-guided paracentesis with imaging Exam date/time: 01/18/2025 11:55 PM Reason For Exam: Alcoholic cirrhosis. Repeat therapeutic paracentesis Comparison: Ultrasound abdomen 01/06/2025, paracentesis 01/05/2020 Technique: Informed verbal and written consent was obtained from thepatient/patient's medical decision maker caregiver. The details ofprocedure were discussed, including all applicable risks, benefits andalternatives. Patient expressed understanding and wished to proceed. Initial survey ultrasound performed documenting the presence of largevolume ascites. A timeout was performed. A right lower quadrant skinaccess site was chosen with ultrasound guidance, and prepped and draped.Sterile ultrasound technique, including hand wash with soap and water, wasemployed for the procedure.1% lidocaine was administered for localanesthesia and the skin and deeper soft tissues down to the peritoneum. Asmall skin incision was made through which a 6 [place] [employer] one-stepcatheter was advanced under ultrasound guidance through the abdominal wallinto the peritoneal cavity. Fluid was returned. The inner stylet wasremoved and the catheter attached to tubing attached to serial vacuumcontainers via a three- way stopcock, allowing withdrawal of clearstraw-colored ascites. Once aspiration stopped, the catheter was removed.Compression was applied and hemostasis obtained and a sterile dressingplaced. The patient tolerated the procedure well with no immediate complication. Findings: Large volume ascites. There is uneventful removal of 8.9 liters of fluid from the peritonealcavity with trace amount of nondrainable ascites remaining postprocedureultrasound. =====IMPRESSION:===== 1. Large volume ascites 2. Procedure note for right lower quadrant approach paracentesis performedwith ultrasound guidance. 3. Total 8.9 L of fluid removed. 4. Albumin IV placement to follow per protocol. 5. No immediate complication. Ordered By: LEV FLOREZ Interpreted By: Terrence Sheets MD, 01/18/2025 12:09 PM Lev Florez MD INTERVENTIONAL RADIOLOGY Final Result * ECG 12 lead (01/16/2025 4:25 PM CDT) Only the most recent of4 resultswithin the time period is included. 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1950 Requested By: LEV FLOREZ Order Number: [id number] Reading MD: Albin Alvarado Measurements Intervals [place] Rate: 114 P: 0 SD: 0 QRS: 7 QRSD: 90 T: -34 QT: 256 QTc: 354 Interpretive Statements ATRIAL FIBRILLATION WITH RAPID VENTRICULAR RESPONSE ABNORMAL RHYTHM ECG Compared to ECG 01/07/2025 20:51:35 No significant changes Procedure Note Albin Alvarado MD - 01/16/2025 [facility] [address] Test Date: 2025-01-16 Pat Name: [facility] Department: 40 Room: [id number] 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 PHOSPHORUS 2.6 2.5 - 4.9 MG/DL 01/14/2025 5:43 AM CDT [facility] 01/14/2025 5:06 AM CDT us Lis Suárez MD LABORATORY Final Result [facility] [address] [place] [address], [place] [phone] * TYPE & SCREEN (01/12/2025 9:42 AM CDT) UNITS ORDERED 1 01/12/2025 10:51 AM CDT [facility] ABO/RH O POSITIVE 01/12/2025 10:51 AM CDT [facility] ANTIBODY SCREEN NEGATIVE 10:51 AM CDT [facility] SAMPLE EXPIRATION 01/15/2025,23 59 01/12/2025 10:51 AM CDT [facility] BLOOD UNIT NUMBER [id number] 01/12/2025 10:51 AM CDT [facility] PRODUCT: PC LEUKOPOOR 01/12/2025 10:51 AM CDT [facility] UNIT DIVISION 00 01/12/2025 10:51 AM CDT [facility] BLOOD UNIT STATUS UNIT RELEASED 01/16/2025 6:41 AM CDT [facility] TRANSFUSION STATUS OK TO TRANSFUSE 01/12/2025 10:51 AM CDT [facility] CROSSMATCH COMPATIBLE-EX M 01/12/2025 10:51 AM CDT [facility] 01/12/2025 9:42 AM CDT Gautam Corral MD BLOOD BANK TEST ORDERABLES Final Result [facility] [address] [place] [address], [place] [phone] * (ABNORMAL) PTT, PARTIAL THROMBOPLASTIN TIME (01/11/2025 5:12 AM CDT) Only the most recent of4 resultswithin the time period is included. PTT 42.5(H) 25.1 - 36.5 SEC 01/11/2025 5:51 AM CDT [facility] 01/11/2025 5:12 AM CDT us Dannie Sun MD LABORATORY Final Result [facility] [address] [place] [address], [place] [phone] * (ABNORMAL) BASIC METABOLIC PANEL (01/07/2025 9:46 PM IRONMOLDER) GLUCOSE 118(H) 70 - 99 MG/DL 01/07/2025 10:20 PM [facility] BUN 20(H) 7 - 18 MG/DL 01/07/2025 10:20 PM [facility] CREATININE S/P/B 2.04(H) 0.55 - 1.02 MG/DL 01/07/2025 10:20 PM [facility] SODIUM S/P/B 134(L) 136 - 145 MMOL/L 01/07/2025 10:20 PM [facility] POTASSIUM S/P/B 3.9 3.5 - 5.1 MMOL/L 01/07/2025 10:20 PM [facility] CHLORIDE S/P/B 102 97 - 115 MMOL/L 01/07/2025 10:20 PM [facility] CO2 25.3 21 - 32 MMOL/L 01/07/2025 10:20 PM [facility] CALCIUM S/P/B 9.1 8.5 - 10.1 MG/DL 01/07/2025 10:20 PM [facility] ANION GAP 6.7 2 - 10 MMOL/L 01/07/2025 10:20 PM [facility] BUN CREATININE RATIO 9.8 6 - 26 01/07/2025 10:20 PM [facility] GFR ESTIMATE 25(L) >90 ML/MIN/1.7 3 M2 01/07/2025 10:20 PM [facility] Comment: NOTE: eGFR is not calculated for patients <18 years of age or gender unknown. This is an estimated GFR calculation using the new CKD EPI creatinine equation without race and so does not require a correction factor for race. This estimated GFR should not be used for calculating drug doses. 01/07/2025 9:46 PM IRONMOLDER us Jaime Cook MD LABORATORY Final Result Performing Organization Address City/[facility]/ZIP Co de Phone Number [facility] [address] [place] [address], [place] [phone] * (ABNORMAL) HEMOGLOBIN AND HEMATOCRIT (01/07/2025 12:01 AM IRONMOLDER) Only the most recent of3 resultswithin the time period is included. HGB 8.3(L) 12.0 - 16.0 G/DL 01/07/2025 12:52 AM IRONMOLDER [facility] HCT 23.9(L) 38.0 - 48.0 % 01/07/2025 12:52 AM IRONMOLDER [facility] 01/07/2025 12:0 1 AM IRONMOLDER Bert Schmitt MD LABORATORY Final Result Performing Organization Address City/[facility]/ZIP Co de Phone Number [facility] [address] [place] [phone], * (ABNORMAL) LIPOPROTEIN, HDL CHOL, DIRECT (01/06/2025 9:05 PM IRONMOLDER) HDL 16(L) >40.0 MG/DL 01/07/2025 1:13 AM IRONMOLDER [facility] 01/06/2025 9:05 PM IRONMOLDER us Bert Schmitt MD LABORATORY Final Result Performing Organization Address City/[facility]/ZIP Co de Phone Number [facility] [address] [place] [address], [place] [phone] * (ABNORMAL) HEPARIN, ANTI XA, UFH (01/05/2025 12:48 AM IRONMOLDER) Only the most recent of6 resultswithin the time period is included. HEPARIN ANTI XA UFH 0.28(L) 0.30 - 0.70 IU/ML 01/05/2025 1:19 AM IRONMOLDER [facility] Comment: UFH Therapeutic Anti Xa Ranges: Medical Therapeutic Range: 0.30 - 0.70 IU/mL Cardiac Therapeutic Range: 0.30 - 0.50 IU/mL Neuro Therapeutic Range: 0.20 - 0.40 IU/mL 01/05/2025 12:4 8 AM IRONMOLDER Jm Pacheco PA-C LABORATORY Final Result Performing Organization Address City/[facility]/ZIP Co de Phone Number [facility] [address] [place] [address], * (ABNORMAL) OCCULT BLOOD, FECES (01/04/2025 11:57 PM IRONMOLDER) OCCULT BLOOD FECAL POSITIVE(A ) NEGATIVE 01/05/2025 1:52 AM IRONMOLDER [facility] STOOL SPECIMEN / Unknown 01/04/2025 11:57 PM IRONMOLDER Jm Pacheco PA-C BODY FLUIDS AND STOOLS ORDERAB LES Final Result [facility] [address] [place] [address], * Flow Cytometry (01/04/2025 3:43 PM IRONMOLDER) FLOW CYTOMETRY RESULTS [facility] Department of Laboratory Medicine [address] [place] [address] , extension [phone] Pathology Report Flow Cytometry Report Name: ELSY KRAMER Specimen #: [id number] Age: 8 1950 (Age: 74) Location: [facility] Sex: F Procedure Date: 01/04/2025 Hospital #: [id number] Date Received: 01/05/2025 Date Reported: 01/06/2025 Provider: JM PACHECO PA-C Source: Peritoneal fluid (See report [id number]) FINAL DIAGNOSIS: Peritoneal fluid, flow cytometric analysis: -No evidence of hematolymphoid neoplasm. Result: Tested: CD45, CD19, CD20, Surface Pine, Surface Lambda, CD5, CD10, CD23, CD34, CD14, CD117, CD4, CD8, CD3, CD7, CD56, CD200. The specimen is adequate for evaluation with 90% viability. CD19, CD20 positive B lymphocytes comfort 0.6% of total events and have a kappa:lambda ratio of 2.6. No aberrant coexpression of CD5, CD10, or CD23 is identified in this population. CD3 positive T lymphocytes account for 15% of total events and have a CD4:CD8 ratio 1.9. No aberrant loss of CD5 or CD7 is identified in this population. Neutrophils are account for 28% of total events. Monocytes account for 38% total events. CD34 positive blasts are not identified. Electronically Signed Out JESSICA VINSON MD This test was developed and its performance characteristics determined by [facility]. It has not been cleared or approved by the U.S. Food and Drug Administration. However, the use of Analyte Specific Reagents does not require FDA approval. [facility] PARACENTESIS FLUID PERITONEAL FLUID / Unknown 01/04/2025 3:43 PM IRONMOLDER 01/05/2025 12:10 PM IRONMOLDER Comment:Peritoneal fluid (Se e report [id number]) Jm Pacheco PA-C PATHOLOGY/CYTOLOGY ORDERABLES Final Result [facility] [place] [address], [phone] * PROTEIN TOTAL FLUID (01/04/2025 3:43 PM IRONMOLDER) PROTEIN (FLUID) 0.7 G/DL 12:10 PM IRONMOLDER [facility] Comment:REFERENCE RANGE NOT ESTABLISHED FOR THIS BODY FLUID. SITE: PERITONEAL FLUID 01/04/2025 4:30 PM IRONMOLDER [facility] PARACENTESIS FLUID PERITONEAL FLUID / Unknown 01/04/2025 3:43 PM IRONMOLDER Jm Apple Jin PA-C BODY FLUIDS AND STOOLS ORDERAB LES Final Result Performing Organization Address [facility] Co de Phone Number [facility] [address] [place] [address], [place] [phone] [facility] [address] [place] [address], [place] [phone] * ANTINUCLEAR ANTIBODY WI RFX (LEANDRO) (01/04/2025 3:13 PM IRONMOLDER) LEANDRO 0.4 01/05/2025 3:15 PM IRONMOLDER [facility] Comment: NEGATIVE: <0.7 RATIO LEANDRO PROFILE AND TITER NOT PERFORMED THE LEANDRO SCREEN TESTS FOR THE FOLLOWING ANTIBODIES BY EIA: SSA1 (RO), SSB1 (LA), KINCAID, SCL70, JO1, CENTROMERE, SCIENCE SPECIALIST HISTONE MUST BE ORDERED SEPARATELY DNA (DS) ANTIBODY 1.1 IU/ML 025 3:15 PM IRONMOLDER [facility] Comment: NEGATIVE: <10 IU/mL EQUIVOCAL: 10 to 15 IU/mL POSITIVE: >15 IU/mL THIS QUANTITATIVE ASSAY IS CALIBRATED TO THE [employer]'S WO/80 STANDARD. THE LEVEL OF dsDNA AUTOANTIBODY GERERALLY CORRELATES WITH THE LEVEL OF DISEASE ACTIVITY IN SYSTEMIC LUPUS ERYTHMATOSUS 01/04/2025 3:13 PM IRONMOLDER Jm RAMOS-Teresa LABORATORY Final Result Performing Organization Address [facility]/ZIP Co de Phone Number [facility] [address] [place] [address], [place] [phone] * HEPATITIS PANEL,ACUTE (01/04/2025 3:13 PM IRONMOLDER) HEPATITIS B SURFACE AG NON-REACTI VE NON-REACTI VE 01/04/2025 5:06 PM IRONMOLDER [facility] HEP B CORE IGM NON-REACTI VE NON-REACTI VE 01/04/2025 5:06 PM IRONMOLDER [facility] HAV IGM NON-REACTI VE NON-REACTI VE 01/04/2025 5:06 PM IRONMOLDER [facility] HEPATITIS C AB NON-REACTI VE NON-REACTI VE 01/04/2025 5:06 PM IRONMOLDER [facility] 01/04/2025 3:13 PM IRONMOLDER Jm Pacheco PA-C LABORATORY Final Result Performing Organization Address City/[facility]/ZIP Co de Phone Number [facility] [address] [place] [address], * HEPATITIS B CORE ANTIBODY (01/04/2025 3:13 PM IRONMOLDER) Pathologist [facility] HEP B CORE TOTAL AB NON-REACTI VE NON-REACTI VE 01/04/2025 4:56 PM IRONMOLDER [facility] 01/04/2025 3:13 PM IRONMOLDER Jm Pacheco PA-C LABORATORY Final Result Performing Organization Address City/[facility]/ZIP Co de Phone Number [facility] [address] [place] [address], [place] [phone] * HEPATITIS A ANTIBODY (01/04/2025 3:13 PM IRONMOLDER) Pathologist [facility] HEPATITIS A TOTAL AB Nonreactive Nonreactive 01/09/2025 4:20 AM CDT [employer] Comment: For additional information, please refer to https://education.Atrica.com/faq/QJB702 (This link is being provided for informational/ educational purposes only.) Test Performed by [facility] [place], [employer] [place], [address] [place], [place] Sanchez Lou M.D., Ph.D., Director of Laboratories , CLIA [id number] 01/04/2025 3:13 PM IRONMOLDER Jm Pacheco PA-C LABORATORY Final Result [facility] [place] [phone] [place], [place] , * CYTOLOGY GENERIC (01/04/2025 12:00 AM IRONMOLDER) CYTOLOGY OTHER [facility] Department of Laboratory Medicine [address] [place] [address] , extension [phone] Pathology Report Non-gynecologic Cytology Report Name: ELSY KRAMER Specimen #: [id number] Age: 8 1950 (Age: 74) Location: [facility] Sex: F Procedure Date: 01/04/2025 Hospital #: [id number] Date Received: 01/05/2025 Date Reported: 01/06/2025 Provider: JM NEWELLSpenser ARTIS MD Source: PERITONEAL FLUID Clinical History: Pneumonia FINAL DIAGNOSIS: Peritoneal fluid, paracentesis: -Satisfactory for evaluation. -Negative for malignancy. -Flow cytometric analysis (see report [id number]) is negative for a lymphoid neoplasm. Gross Description: SPECIMEN RECEIVED: 2000 cc's of yellow fluid SLIDES PREPARED: 1 ThinPrep and cell block slide(s); all slides were microscopically examined by a pathologist. STAINS: Papanicolaou, H & E Initial cytologic screening, interpretation, and sign out were performed at [facility], [address] [place] [address]. Electronically Signed Out JESSICA VINSON MD [facility] 01/04/2025 01/05/2025 11: 59 AM IRONMOLDER Comment:PERITONEAL FLUID Jm Pacheco PA-C PATHOLOGY/CYTOLOGY ORDERABLES Final Result [facility] [address] [place] [address], [phone] * USE ECHOCARDIOGRAM (01/03/2025 5:20 PM IRONMOLDER) Anatomical Region Laterality Modality Cardiac Echocardiogram 01/03/2025 4:38 PM IRONMOLDER Narrative 01/03/2025 6:14 PM IRONMOLDER Echocardiography Report Pat.Name: ELSY KRAMER Dora.ID: [id number] St.Date: 01/03/2025 Exam Time: 4:38:00 PM Study Type:ECHO WITH CARDIAC DOPPLER COMP Height: 65 in Weight: 173 lb BSA: 1.86 m2 Age: 8 1950,74Y Sex: F BP: 102/57 HR: 95 bpm Sonogrphr: Kamilla Moore Pat. Stat.:Inpatient Room: ED4 Reason for Study:Congestive heart failure Procedures: 2D, M-mode, Doppler, Color Flow, The study quality is technically good. Race: W ++++++++++++++++++++++++++++++++++++ SUMMARY: ++++++++++++++++++++++++++++++++++++ The left ventricular size is [...] regurgitation. No evidence of tricuspid valve stenosis. ++++++++++++++++++++++++++++++++++++ MEASUREMENTS: ++++++++++++++++++++++++++++++++++++ DOPPLER LVOT LVOTpkPG 5 mmHg LVOTmnPG 3 mmHg LVOTpkVel 110 cm/s (70-110) LVOT SV 74 ml LVOT TVI 23.7 cm AV Forward Flow AV TVI 29.4 cm AV pkPG 8 mmHg AV pkVel 144 cm/s (100-170) Area (TVI) 2.53 cm2 (3-5)* AV mnPG 4 mmHg Area (Abisai) 2.4 cm2 (3-5)* MV Forward Flow MV DeTm 244 msec MV E/A 0.9 MVA P1/2t 3.06 cm2 (4-6)* MV pkE 89.2 cm/s (60-130) MV P1/2t 72 msec (30-60)+* MV pkA 100 cm/s PV Forward Flow PV pkVel 111 cm/s (60-90)* PV AC 77 msec PV pkPG 5 mmHg RVOT RVOTpkV 83.2 cm/s TV Regurg Flow TV pkPG 28 mmHg TV pkVel 263 cm/s (30-70)* TV Forward Flow TV E/A 1.3 TV pkA 53 cm/s TV pkE 71.1 cm/s Lat E' Lat e 10.2 cm/s Lat E/E' Lat E/e 8.7 Med E' Med e 7.51 cm/s Med E/E' Med E/e 11.9 Aortic Valve Aortic Valve Ar 1.36 Aortic Valve Ve 0.76 PV Antegrade Flow Acceleration Sl 1038 cm/s2 Right Atrium Addison's Disk 20 Right Ventricle Right Ventricle 14.9 cm/s 2D Left Ventricle LVIDd 4.2 cm (3.6-5.2) LV ESV 15.4 ml LVIDs 2.5 cm (2.3-3.9) LV ESV 13.1 ml LngAxd 7.11 cm LVESV BP 15.4 ml LngAxd 7.11 cm LV EF 75.6 % LV EDV 63 ml LV EF 79.3 % LV EDV 63.2 ml LV EF BP 75.5 % LVEDV BP 62.9 ml LV SV 47.7 ml LngAxs 5.27 cm LV SV 50.1 ml LngAxs 4.42 cm LV SV BP 47.5 ml LVPW LVPWd 0.8 cm Ventricular Septum IVSd 0.8 cm Left Atrium LA VOLBP 26.8 ml Aorta Ao Rtd 2.8 cm (zsc 0.1) Ao Asc 3.1 cm (zsc 2.4)* LVOT LVOT 2 cm LVOTArea 3.14 cm2 Ratios IVS LA Biplane LAVol I BP 14.4 ml/m2 RA Single Plane Right Atrium MO 7.87 mm Right Atrium Sy 21.1 ml Right Atrium Sy 46.4 mm Right Atrium Sy 11.3 ml/m2 Right Atrium Sy 10.7 cm2 Right Ventricle Right Ventricle 34 mm Right Ventricle 26 mm Major [place] 55 mm MMODE TA Tricuspid Annul 22.9 mm <Electronic Signature> 01/03/2025 06:14 PM Carl Huitron M.D. Procedure Note Carl Huitron MD - 01/03/2025 Echocardiography Report Pat.Name: ELSY KRAMER Pat.ID: [id number] .Date: 01/03/2025 Exam Time: 4:38:00 PM Study Type:ECHO WITH CARDIAC DOPPLER COMP Height: 65 in Weight: 173 lb BSA: 1.86 m2 Age: 8 1950,74Y Sex: F BP: 102/57 HR: 95 bpm Sonogrphr: Kamilla Moore Pat. Stat.:Inpatient Room: ED4 Reason for Study:Congestive heart failure Procedures: 2D, M-mode, Doppler, Color Flow, The study quality is technically good. Race: W ++++++++++++++++++++++++++++++++++++ SUMMARY: ++++++++++++++++++++++++++++++++++++ The left ventricular size is [...] regurgitation. No evidence of tricuspid valve stenosis. ++++++++++++++++++++++++++++++++++++ MEASUREMENTS: ++++++++++++++++++++++++++++++++++++ DOPPLER LVOT LVOTpkPG 5 mmHg LVOTmnPG 3 mmHg LVOTpkVel 110 cm/s (70-110) LVOT SV 74 ml LVOT TVI 23.7 cm AV Forward Flow AV TVI 29.4 cm AV pkPG 8 mmHg AV pkVel 144 cm/s (100-170) Area (TVI) 2.53 cm2 (3-5)* AV mnPG 4 mmHg Area (Abisai) 2.4 cm2 (3-5)* MV Forward Flow MV DeTm 244 msec MV E/A 0.9 MVA P1/2t 3.06 cm2 (4-6)* MV pkE 89.2 cm/s (60-130) MV P1/2t 72 msec (30-60)+* MV pkA 100 cm/s PV Forward Flow PV pkVel 111 cm/s (60-90)* PV AC 77 msec PV pkPG 5 mmHg RVOT RVOTpkV 83.2 cm/s TV Regurg Flow TV pkPG 28 mmHg TV pkVel 263 cm/s (30-70)* TV Forward Flow TV E/A 1.3 TV pkA 53 cm/s TV pkE 71.1 cm/s Lat E' Lat e 10.2 cm/s Lat E/E' Lat E/e 8.7 Med E' Med e 7.51 cm/s Med E/E' Med E/e 11.9 Aortic Valve Aortic Valve Ar 1.36 Aortic Valve Ve 0.76 PV Antegrade Flow Acceleration Sl 1038 cm/s2 Right Atrium Addison's Disk 20 Right Ventricle Right Ventricle 14.9 cm/s 2D Left Ventricle LVIDd 4.2 cm (3.6-5.2) LV ESV 15.4 ml LVIDs 2.5 cm (2.3-3.9) LV ESV 13.1 ml LngAxd 7.11 cm LVESV BP 15.4 ml LngAxd 7.11 cm LV EF 75.6 % LV EDV 63 ml LV EF 79.3 % LV EDV 63.2 ml LV EF BP 75.5 % LVEDV BP 62.9 ml LV SV 47.7 ml LngAxs 5.27 cm LV SV 50.1 ml LngAxs 4.42 cm LV SV BP 47.5 ml LVPW LVPWd 0.8 cm Ventricular Septum IVSd 0.8 cm Left Atrium LA VOLBP 26.8 ml Aorta Ao Rtd 2.8 cm (zsc 0.1) Ao Asc 3.1 cm (zsc 2.4)* LVOT LVOT 2 cm LVOTArea 3.14 cm2 Ratios IVS LA Biplane LAVol I BP 14.4 ml/m2 RA Single Plane Right Atrium MO 7.87 mm Right Atrium Sy 21.1 ml Right Atrium Sy 46.4 mm Right Atrium Sy 11.3 ml/m2 Right Atrium Sy 10.7 cm2 Right Ventricle Right Ventricle 34 mm Right Ventricle 26 mm Major [place] 55 mm MMODE TA Tricuspid Annul 22.9 mm <Electronic Signature> 01/03/2025 06:14 PM Carl Huitron M.D. us Jm Pacheco PA-C ECHO Final Result * USV PETEY DUPLEX LOW EXT JAVI (01/03/2025 3:11 PM IRONMOLDER) Anatomical Region Laterality Modality Extremity Vascular Ultraso und 01/03/2025 2:43 PM IRONMOLDER Narrative 01/05/2025 7:42 PM IRONMOLDER VENOUS DUPLEX IMAGING BILATERAL LOWER EXTREMITY VASCULAR LAB Pat.Name: ELSY KRAMER Pat.ID: [id number] St.Date: 01/03/2025 Refer.MD: Salena Silveira Exam Time: 2:43:00 PM Study Type:THOMAS VS Venous Duplex Legs JAVI Age: 8 1950,74Y Sex: F Sonogrphr: Briseida Martin RVT Pat. Stat.:Inpatient Room: ER 4 History / Clinical:Significant abdominal distention, severe pitting edema to both legs up to the hips. Patient states this has been going on for several weeks. Procedures: Contreras scale, Color Doppler imaging, Doppler Spectral Analysis Race: W ++++++++++++++++++++++++++++++++++++ SUMMARY: ++++++++++++++++++++++++++++++++++++ Right leg: There are NO apparent, deep vein, ACUTE character venous filling defects visualized in the femoral, popliteal, deep calf or proximal saphenous veins. Resting venous flow is normal phasic proximally. Left leg: There are deep vein, ACUTE character, non occlusive venous filling defects visualized in the common femoralveins. Resting venous flow is normal phasic proximally. Incidental findings: There is ascites present in the lower abdomen. There is significant subcutaneous tissue edema noted bilaterally. Limited visualization of the calf veins bilaterally due to the edema. CONCLUSION: Acute non-occlusive deep vein thrombosis involving the left common femoral vein. No evidence of deep vein thrombosis involving the right lower extremity. <Electronic Signature> 01/05/2025 07:42 PM Miguel Angel Batres M.D. Procedure Note Miguel Angel Batres MD - 01/05/2025 VENOUS DUPLEX IMAGING BILATERAL LOWER EXTREMITY VASCULAR LAB Pat.Name: ELSY KRAMER Dora.ID: [id number] .Date: 01/03/2025 Refer.MD: Salena Silveira Exam Time: 2:43:00 PM Study Type:THOMAS VS Venous Duplex Legs JAVI Age: 8 1950,74Y Sex: F Sonogrphr: Briseida Martin, [facility] Pat. Stat.:Inpatient Room: ER 4 History / Clinical:Significant abdominal distention, severe pitting edema to both legs up to the hips. Patient states this has been going on for several weeks. Procedures: Contreras scale, Color Doppler imaging, Doppler Spectral Analysis Race: W ++++++++++++++++++++++++++++++++++++ SUMMARY: ++++++++++++++++++++++++++++++++++++ Right leg: There are NO apparent, deep vein, ACUTE character venous filling defects visualized in the femoral, popliteal, deep calf or proximal saphenous veins. Resting venous flow is normal phasic proximally. Left leg: There are deep vein, ACUTE character, non occlusive venous filling defects visualized in the common femoralveins. Resting venous flow is normal phasic proximally. Incidental findings: There is ascites present in the lower abdomen. There is significant subcutaneous tissue edema noted bilaterally. Limited visualization of the calf veins bilaterally due to the edema. CONCLUSION: Acute non-occlusive deep vein thrombosis involving the left common femoral vein. No evidence of deep vein thrombosis involving the right lower extremity. <Electronic Signature> 01/05/2025 07:42 PM Miguel Angel Batres M.D. Jm Pacheco PA-C [facility] Final Result * NM LUNG SCAN VENT+PERF (01/03/2025 2:27 PM IRONMOLDER) Anatomical Region Laterality Modality Chest Nuclear Medicine 01/03/2025 2:35 PM IRONMOLDER Impressions 01/03/2025 2:42 PM IRONMOLDER IMPRESSION: 1. Low probability of pulmonary embolus. . Referred By: Interpreted By: Kassandra Medley DO, 01/03/2025 2:35 PM Narrative 01/03/2025 2:42 PM IRONMOLDER [address] [address] EXAMINATION PULMONARY PERFUSION STUDY CLINICAL HISTORY: 74-year-old female. Reason for examination: Look for pulmonary embolus. 01/03/2025 2:30 PM, Sanchez Gordon: 9.9 mCI Xe-133 Ventilation 5.6 mCI Tc MAA IV Perfusion Pt reports SOB, coughing, and edema after long car trip. ER notes:01/03/2025 7:22 AM, Emi Nguyen: Patient arrives to ED with c/o coughing up mucus. Patient states she has been in the car since 1529. Patient states she had blood in her urine. Patient denies fevers/chills, denies n/v/d. COMPARISON STUDY: No previous VQ scan Chest radiograph this morning at 7:1 2 RADIOPHARMECEUTICAL: 5.6 mCi 99mTc DTPA/MAA for perfusion imaging and 9.9mCi Xe 133 per inhalation for ventilation imaging VENTILATION IMAGING: Images obtained the in the standard posterior projection with additional right posterior oblique and left posterior oblique projections reveals uniform distribution of the aerosol throughout both lungs. Hypoventilation of the right lower lobe. PERFUSION IMAGING: Images obtained in the standard anterior, posterior, lateral and posterior oblique projections reveals uniform activity throughout both lung dean. Segmental, subsegmental or lobar defects are not appreciated. Moderate-sized geographic perfusion defect right lower lung. Comparing ventilation/perfusion imaging, the findings are matched. Comparing V/Q images with standard chest radiograph of this morning the findings are matched. Procedure Note Kassandra Medley MD - 01/03/2025 [place] [address] EXAMINATION PULMONARY PERFUSION STUDY CLINICAL HISTORY: 74-year-old female. Reason for examination: Look for pulmonary embolus. 01/03/2025 2:30 PM, Sanchez Gordon: 9.9 mCI Xe-133 Ventilation 5.6 mCI Tc MAA IV Perfusion Pt reports SOB, coughing, and edema after long car trip. ER notes:01/03/2025 7:22 AM, Emi Nguyen M: Patient arrives to ED withc/o coughing up mucus. Patient states she has been in the car since 0.Patient states she had blood in her urine. Patient denies fevers/chills,denies n/v/d. COMPARISON STUDY: No previous VQ scan Chest radiograph this morning at 7:1 2 RADIOPHARMECEUTICAL: 5.6 mCi 99mTc DTPA/MAA for perfusion imaging and 9.9mCi Xe 133 per inhalation for ventilation imaging VENTILATION IMAGING: Images obtained the in the standard posterior projection with additionalright posterior oblique and left posterior oblique projections revealsuniform distribution of the aerosol throughout both lungs.Hypoventilation of the right lower lobe. PERFUSION IMAGING: Images obtained in the standard anterior, posterior, lateral and posterioroblique projections reveals uniform activity throughout both lung dean.Segmental, subsegmental or lobar defects are not appreciated.Moderate-sized geographic perfusion defect right lower lung. Comparing ventilation/perfusion imaging, the findings are matched. Comparing V/Q images with standard chest radiograph of this morning thefindings are matched. IMPRESSION: 1. Low probability of pulmonary embolus. . Referred By: Interpreted By: Kassandra Medley DO, 01/03/2025 2:35 PM Jaylen Artis MD [facility] Final Result * PROCALCITONIN (PCT) (01/03/2025 11:00 AM IRONMOLDER) [facility] PROCALCITONIN 0.15 0.00 - 0.49 NG/ML 01/03/2025 2:05 PM IRONMOLDER [facility] 01/03/2025 11:0 0 AM IRONMOLDER Jm Pacheco PA-C LABORATORY Final Result Performing Organization Address City/[facility]/ZIP Co de Phone Number [address] [address], [place] [phone] * TROPONIN, QUANT (01/03/2025 11:00 AM IRONMOLDER) Only the most recent of2 resultswithin the time period is included. [facility] TROPONIN I HIGH SENSITIVITY 17 <54 ng/L 01/03/2025 11:46 AM IRONMOLDER [facility] Comment: HIGH DOSES OF BIOTIN, TROPONIN-SPECIFIC AUTOANTIBODIES, AND ANTIBODY THERAPY CONTAINING HAMA MAY INTERFERE WITH THIS TEST RESULT. CORRELATION TO CLINICAL HISTORY AND PRESENTATION RECOMMENDED. 01/03/2025 11:0 0 AM IRONMOLDER Jaylen Artis MD LABORATORY Final Result Performing Organization Address City/[facility]/ZIP Co de Phone Number [facility] [address] [place] [address], * CK (CPK) (01/03/2025 11:00 AM IRONMOLDER) CPK 60 21 - 215 U/L 01/03/2025 1:56 PM IRONMOLDER [facility] 01/03/2025 11:0 0 AM IRONMOLDER Jm Pacheco PA-C LABORATORY Final Result [facility] [address] [place] [address], * (ABNORMAL) PRO-BRAIN NATRIURETIC PEPTIDE (01/03/2025 8:00 AM IRONMOLDER) PRO-B TYPE NATRIURETIC PEPTIDE 1,589(H) <125 PG/ML 01/03/2025 8:59 AM IRONMOLDER [facility] Comment: CUT POINTS ESTABLISHED BY [employer] ON NT PROBNP (ICON) STUDY (2006). AGE INDEPENDENT: <300 PG/ML HAS A 99% NEGATIVE PREDICTIVE VALUE FOR EXCLUDING ACUTE CHF <50 YEARS: >450 PG/ML IS CONSISTENT WITH ACUTE CHF 50-75 YEARS: >900 PG/ML IS CONSISTENT WITH ACUTE CHF >75 YEARS: >1800 PG/ML IS CONSISTENT WITH ACUTE CHF IN PATIENTS WITH RENAL INSUFFICIENCY (GFR <60), >1200 PG/ML YIELDS A DIAGNOSTIC SENSITIVITY AND SPECIFICITY OF 89% AND 72% FOR ACUTE CHF. 01/03/2025 8:00 AM IRONMOLDER Jaylen Artis MD LABORATORY Final Result [facility] [address] [place] [address], * (ABNORMAL) IRON SAT PANEL (IRON,IBC,%SAT) (01/03/2025 7:55 AM IRONMOLDER) IRON 76 50.0 - 170.0 MCG/DL 01/03/2025 1:10 PM IRONMOLDER [facility] IRON BINDING CAPACITY 158(L) 250 - 450 MCG/DL 01/03/2025 1:10 PM [facility] IRON SATURATION 48 20 - 55 % 1:10 PM [facility] 01/03/2025 7:55 AM IRONMOLDER Jm Pacheco PA-C LABORATORY Final Result [facility] [address] [place] [address], * (ABNORMAL) LIPID PANEL (01/03/2025 7:55 AM IRONMOLDER) CHOLESTEROL 259(H) <200 MG/DL 01/03/2025 1:10 PM IRONMOLDER [facility] TRIGLYCERIDES 102 <150 MG/DL 01/03/2025 1:10 PM [facility] HDL 31(L) >40.0 MG/DL 01/03/2025 1:10 PM [facility] LDL (CALCULATED) 208(H) <100 MG/DL 01/03/2025 1:10 PM IRONMOLDER [facility] NON HDL CHOLESTEROL 228(H) <130 MG/DL 01/03/2025 1:10 PM [facility] CHOL/HDL RATIO 8.4(H) 0.0 - 4.5 01/03/2025 1:10 PM [facility] VLDL CALCULATION 20 5 - 55 MG/DL 01/03/2025 1:10 PM [facility] LIPID INTERPRETATION 01/03/2025 1:10 PM [facility] Comment: [facility] CONCENSUS REPORT RECOMMENDATIONS: ADULT CHILD LOW RISK: CHOLESTEROL <200 <170 TRIGLYCERIDE <150 --- HDL >=60 --- LDL <100 <110 BORDERLINE: CHOLESTEROL 200-239 170-199 TRIGLYCERIDE 150-199 --- HDL 40-59 --- LDL 100-159 110-129 HIGH RISK: CHOLESTEROL >=240 >=200 TRIGLYCERIDE >=200 --- HDL <40 --- LDL >=160 >=130 01/03/2025 7:55 AM IRONMOLDER Jm Pacheco PA-C LABORATORY Final Result [facility] [address] [place] [address], * (ABNORMAL) HEPATIC FUNCTION PANEL (01/03/2025 7:55 AM IRONMOLDER) TOTAL PROTEIN S/P/B 6.7 6.4 - 8.2 G/DL 01/03/2025 1:10 PM IRONMOLDER [facility] ALBUMIN S/P/B 2.5(L) 3.4 - 5.0 G/DL 01/03/2025 1:10 PM [facility] BILIRUBIN TOTAL S/P/B 8.8(H) 0.2 - 1.2 MG/DL 01/03/2025 1:10 PM IRONMOLDER [facility] Comment: THIS ASSAY IS NOT RECOMMENDED FOR PATIENTS UNDERGOING TREATMENT WITH ELTROMBOPAG DUE TO THE POTENTIAL FOR FALSELY ELEVATED RESULTS. BILIRUBIN DIRECT S/P/B 3.9(H) 0.0 - 0.20 MG/DL 01/03/2025 1:10 PM [facility] BILIRUBIN INDIRECT S/P/B 4.9(H) 0.0 - 0.9 MG/DL 01/03/2025 1:10 PM [facility] ALKALINE PHOSPHATASE S/P/B 89 50 - 136 U/L 01/03/2025 1:10 PM IRONMOLDER [facility] AST 43(H) 15 - 37 U/L 01/03/2025 1:10 PM IRONMOLDER [facility] ALT 21 14 - 55 U/L 01/03/2025 1:10 PM IRONMOLDER [facility] A/G RATIO 0.6(L) 1.0 - 2.0 RATIO 01/03/2025 1:10 PM IRONMOLDER [facility] 01/03/2025 7:55 AM IRONMOLDER Jm Pacheco PA-C LABORATORY Final Result Performing Organization Address City/[facility]/ZIP Co de Phone Number [facility] [address] [place] [address], * FOLIC ACID SERUM (01/03/2025 7:55 AM IRONMOLDER) FOLATE 7.3 3.1 - 17.5 NG/ML 01/03/2025 1:40 PM IRONMOLDER [facility] 01/03/2025 7:55 AM IRONMOLDER Jm Pacheco PA-C LABORATORY Final Result Performing Organization Address City/[facility]/ZIP Co de Phone Number [facility] [address] [place] [address], [place] [phone] * THYROID STIM HORMONE, TSH (01/03/2025 7:55 AM IRONMOLDER) TSH 3.440 0.358 - 3.74 uIU/ML 01/03/2025 1:10 PM IRONMOLDER [facility] Comment: HIGH DOSES OF BIOTIN MAY INTERFERE WITH THIS TEST RESULT. CORRELATION TO CLINICAL HISTORY AND PRESENTATION RECOMMENDED. 01/03/2025 7:55 AM IRONMOLDER Jm Bangurai PA-C LABORATORY Final Result Performing Organization Address City/[facility] Co de Phone Number [facility] [address] [place] [address], [place] [phone] * GGT, GAMMA GLUTAMYLTRANSFERASE (01/03/2025 7:55 AM IRONMOLDER) GGT 47 5.0 - 55.0 U/L 01/03/2025 1:10 PM IRONMOLDER [facility] 01/03/2025 7:55 AM IRONMOLDER Jm Apple Jin PA-C LABORATORY Final Result Performing Organization Address [facility] Co de Phone Number [facility] [address] [place] [address], [place] [phone] * (ABNORMAL) FERRITIN (01/03/2025 7:55 AM IRONMOLDER) FERRITIN 771.6(H) 8.0 - 388.0 NG/ML 01/03/2025 1:40 PM IRONMOLDER [facility] 01/03/2025 7:55 AM IRONMOLDER Jm Bangurai PA-C LABORATORY Final Result Performing Organization Address [facility] Co de Phone Number [facility] [address] [place] [address], [place] [phone] * XR CHEST PA+LAT (01/03/2025 7:22 AM IRONMOLDER) Anatomical Region Laterality Modality Chest Radiographic Jyotsna ging 01/03/2025 7:33 AM IRONMOLDER Impressions 01/03/2025 7:34 AM IRONMOLDER IMPRESSION: 1. Moderate elevation of right hemidiaphragm. Please correlate clinically for right phrenic nerve paresis or paralysis. 2. Small right pleural effusion with consolidative atelectasis versus pneumonia in the right lower lobe. 3. A small left pleural effusion with minimal atelectasis in the left lower lobe. Referred By: Interpreted By: Shikha Rivers MD, 01/03/2025 7:33 AM Narrative 01/03/2025 7:34 AM IRONMOLDER [place] [address] EXAMINATION: XR PA and Lateral CXR, 2 views INDICATION: Coughing up mucus, blood in urine. COMPARISON: None. FINDINGS: The cardiomediastinal silhouette is within normal limits. Pulmonary vascularity is normal. Moderate elevation of the right hemidiaphragm. Small right pleural effusion and trace left pleural effusion. Mild atelectasis and less likely consolidative infiltrate in the right lower lobe. Minimal atelectasis in the left lower lobe. Remaining lungs are clear. No pneumothorax. No acute osseous abnormality. Procedure Note Shikha Rivers MD - 01/03/2025 [place] [address] EXAMINATION: XR PA and Lateral CXR, 2 views INDICATION: Coughing up mucus, blood in urine. COMPARISON: None. FINDINGS: The cardiomediastinal silhouette is within normal limits. Pulmonaryvascularity is normal. Moderate elevation of the right hemidiaphragm.Small right pleural effusion and trace left pleural effusion. Mildatelectasis and less likely consolidative infiltrate in the right lowerlobe. Minimal atelectasis in the left lower lobe. Remaining lungs areclear. No pneumothorax. No acute osseous abnormality. IMPRESSION: 1. Moderate elevation of right hemidiaphragm. Please correlateclinically for right phrenic nerve paresis or paralysis. 2. Small right pleural effusion with consolidative atelectasis versuspneumonia in the right lower lobe. 3. A small left pleural effusion with minimal atelectasis in the leftlower lobe. 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 DNR (Do Not Resuscitate) Documentation 01/28/2025 1:51 PM Advance Directives and Livin g Will 01/19/2025 3:03 PM * Full Code (Latest Code Status on File) Date Activated Date Inactivated Comments 01/27/2025 8:26 AM 01/30/2025 1:05 AM * Full Code Date Activated Date Inactivated Comments 01/03/2025 11:57 AM 01/18/2025 7:27 PM Healthcare Agents on File Name Relationship Healthcare Agent Relationshi p Communication Fozia Kramer Mother Health Care Agent Care Teams 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
--- OUTSIDE RECORDS SUMMARY | 2025-03-14 11:26 | XMS_ITS | Clinical Summary ---
Author Organization [facility] Facility Address [address] [place] [address] Care Team Providers Care Germ Drier Name Role Phone Unavailable Primary Care Provider Unavailabl e Allergies No known active allergies Medications acetaminophen (TYLENOL) 500 MG tablet Take 500 mg by mouth every 6 hours as needed Active Calcium+D3 500-10 MG-MCG tablet 02/12/2025 Active Calcium Carb-Cholecalci ferol (OYSCO 500 + D) 500-5 MG-MCG tablet Take 1 tablet by mouth 02/11/2025 Active folic acid (FOLVITE) 1 MG tablet Take 1 mg by mouth in the morning. 01/18/2025 Active lactulose (CHRONULAC) 10 GM/15ML solution Take 20 g by mouth in the morning and 20 g in the evening. 02/11/2025 Active midodrine (PROAMATINE) 5 MG tablet Take 15 mg by mouth 02/11/2025 Active ondansetron (ZOFRAN) 4 MG tablet 02/21/2025 Active thiamine (VITAMIN B-1) 100 MG tablet Take 100 mg by mouth in the morning. 01/18/2025 Active Active Problems No known active problems Encounters Date Type Department Care Team Description 03/04/2025 Office Communication [facility], [address] [place] [phone] Duarte Coto MD 03/01/2025 3:30 PM CDT Office Visit [facility], [address] [place] [phone] Duarte Coto MD Acute kidney failure, not otherwise specified (HCC) (Primary Dx); Ascites; Alcoholic cirrhosis (HCC) 02/23/2025 Documentation Only [facility] [place] [id number] [phone] ProviderRemedios MD from Last 3 Months Family History Medical History Relation Comments Heart disease Father Cancer Mother's Brother Cancer Paternal Grandmother Relation Status Comments Father Mother's Brother Paternal Grandmother Social History Tobacco Use Types Packs/Day Years Used Date Smoking Tobacco: Former Cigarettes Alcohol Use Standard Drinks/Week Comments Not Currently 0 (1 standard drink = 0.6 oz pur e alcohol) Comments Unknown Sex and Gender Information Value Date Recorded Sex Assigned at Not on file Legal Sex Female 4:58 PM EDT Gender Identity Not on file Sexual Orientation Not on file Last Filed Vital Signs Vital Sign Reading Time Taken Comments Blood Pressure 111/58 03/01/2025 3:50 PM CDT Pulse - - Temperature 36.7 C (98 F) 03/01/2025 3:50 PM CDT Respiratory Rate 16 03/01/2025 3:50 PM CDT Oxygen Saturation - - Inhaled Oxygen Concentration - - Weight 68 kg (150 lb) 03/01/2025 3:50 PM CDT Height 165.1 cm (5' 5 ) 03/01/2025 3:50 PM CDT Body Mass Index 24.96 03/01/2025 3:50 PM CDT Plan of Treatment Upcoming Encounters Date Type Department Care Team (Late st Contact Info) Description 03/31/2025 3:15 PM CDT Office Visit [facility] [address] [place] [phone] Duarte Coto MD [address] [place] [address] [facility] [address] [place] [address] Health Maintenance Due Date Last Done Comments Breast Cancer Screening 1950 Pneumococcal Vaccine: 50+ Years (1 of 2 - PCV) 971 Colorectal Cancer Screening: Annual FOBT 2001 Colorectal Cancer Screening: Colonoscopy 2001 Colorectal Cancer Screening: Sigmoidoscopy 2001 Hepatitis B Vaccine (1 of 3 - Risk 3-dose series) 11/2011 Influenza Vaccine (Season Ended) 2025 Insurance [employer] Commercial
[2025-03-14 11:57] LABS: Basophils Absolute Auto 0.1 K/mm3 (0.0-0.1); Basophils Percent Auto 0.9 % (0.2-1.2); Eosinophils Absolute Auto 0.1 K/mm3 (0-0.3); Eosinophils Percent Auto 1.1 % (0-4.4); Hematocrit 25.8 % (37.0-47.0); Immature Granulocyte Absolute 0.08 K/mm3 (0.00-0.031); Immature Granulocyte Percent A 0.8 % (0-0.5); Lymphocytes Absolute Auto 0.91 K/mm3 (0.9-3.2); Lymphocytes Percent Auto 9.2 % (18.3-44.2); Mean Corpuscular HGB Conc 34.9 g/dl (32-36); Mean Corpuscular Hemoglobin 28.9 pg (26-34); Mean Platelet Volume 9.4 fl (7.4-10.4); Monocytes Absolute Auto 0.5 K/mm3 (0.1-0.6); Monocytes Percent Auto 4.7 % (2.6-8.5); Neutrophils Absolute Auto 8.3 K/mm3 (1.3-6.7); Neutrophils Percent Auto 83.3 % (45.5-73.1); Platelet Count Result 273 k/mm3 (150-375); Red Blood Count 3.11 M/mm3 (4.2-5.4); Red Cell Distribution Width 15.6 % (11.5-14.5); White Blood Count 9.9 K/mm3 (4.5-10.0)
[2025-03-14 12:04] LABS: Ammonia 40 umol/L (9-30)
[2025-03-14 12:05] LABS: Alanine Aminotransferase 47 U/L (6-35); Albumin Level 3.5 g/dL (3.5-5.1); Alkaline Phosphatase 111 U/L (38-126); Anion Gap 19 mmol/L (4-12); Aspartate Amino Transferase 106 U/L (14-36); Bilirubin,Total 3.6 mg/dL (0.2-1.3); Blood Urea Nitrogen 81 mg/dL (7-17); Calcium 8.8 mg/dL (8.4-10.2); Carbon Dioxide 18 mmol/L (22-30); Chloride 95 mmol/L (98-107); Estimated Glomerular Filt Rate 8; Glucose 117 mg/dL (65-110); Potassium 3.4 mmol/L (3.4-5.0); Sodium 132 mmol/L (137-145)
[2025-03-14 12:09] LABS: Add Urine Microscopic? YES; Appearance Urine Turbid (Clear); Bacteria Urine 4+ /hpf; Bilirubin Urine Negative (Negative); Blood Urine 3+ (Negative); Color Urine Yellow (Yellow); Glucose Urine UA Negative (Negative); Ketones Urine Trace mg/dL (Negative); Leukocyte Esterase Ur 3+ LEU/UL (Negative); Need Manual Microscopic Reviewed; Nitrate Urine Negative (Negative); Protein Urine 2+ mg/dL (Negative); RBC Urine 51-100 /hpf (0-2); Specific Grav Ur 1.012 (1.001-1.035); Squamous Epithelial Cell Urine Occasional /hpf (Few); Urobilinogen Urine 0.2 mg/dL (<2.0); WBC Clumps Urine Present /HPF; WBC Urine >100 /hpf (0-3); pH Urine 5.5 (5.0-9.0)
== END 2025-03-14 11:06 | disposition home or self-care (01) ==
PROVIDERS: PCP Family Medicine; Visit Provider Physician Assistant
DX: N39.0 Urinary tract infection, site not specified (principal); K74.60 Unspecified cirrhosis of liver; N18.9 Chronic kidney disease, unspecified; R11.2 Nausea with vomiting, unspecified; Z97.8 Presence of other specified devices
CPT/HCPCS: 36415; 80053; 81001; 82140; 85025; 87086; 87186